=== PATIENT | male | born 1950 | race Caucasian/White ===

== ENCOUNTER 2021-08-15 13:26 | Outpatient (CLI) | payer OTHER, SELFPAY ==
--- NOTE | 2021-08-15 13:48 | ECHO_ITS ---
Patient Info Name: Car Quigley Age: 70 years : 1950 Gender: Male Ht: 73 in Wt: 326 lbs BSA: 2.83 m2 HR: 78 bpm BP: 146 / 104 mmHg Heart Rhythm: Atrial Fibrillation Technical Quality: Fair Exam Date: 08/15/2021 2:14 PM Exam Location: [facility] Patient Status: Outpatient Admit Date: 08/15/2021 Staff Ordering Physician: Neil Briceno DO Harp Repairer: [place] Grady RDCS Attending Provider: Neil Briceno DO Referring Physician: Janak KING; Exam Type: CA echo dop color flow w con Study Info Indications - afib Complete two-dimensional, color flow and Doppler transthoracic echocardiogram is performed. Summary 1. Complete two-dimensional, color flow and Doppler transthoracic echocardiogram is performed. 2. Left ventricular chamber dimension is mildly enlarged. 3. Definity contrast administered improved wall motion interpretation. 4. Ventricular septum is sigmoid shaped. No LVOT obstruction. 5. Left ventricular systolic function is normal, estimated at 55-60%. 6. There is mildly increased left ventricular wall thickness. 7. The left ventricular diastolic function is normal. 8. E/e' 9 is minimally elevated. 9. Atrial fibrillation. 10. Left atrial chamber dimension is severely enlarged. 11. Right atrial chamber dimension is moderately enlarged. 12. There is mild mitral valve regurgitation. 13. There is mild tricuspid valve regurgitation. 14. No pulmonary hypertension, estimated pulmonary arterial systolic pressure is 30 mmHg. Left Ventricle Ventricular septum is sigmoid shaped. No LVOT obstruction. E/e' 9 is minimally elevated. Definity contrast administered improved wall motion interpretation. Atrial fibrillation. Left ventricular chamber dimension is mildly enlarged. Left ventricular systolic function is normal, estimated at 55-60%. There is mildly increased left ventricular wall thickness. The left ventricular diastolic function is normal. Right Ventricle Right ventricular chamber dimension is not well visualized. Left Atria Left atrial chamber dimension is severely enlarged. Right Atria Right atrial chamber dimension is moderately enlarged. Aortic Valve The aortic valve is trileaflet. There is no aortic valve stenosis. There is no aortic valve regurgitation. Pulmonic Valve There is no pulmonic regurgitation. Mitral Valve There is no mitral valve stenosis. There is mild mitral valve regurgitation. Tricuspid Valve There is mild tricuspid valve regurgitation. No pulmonary hypertension, estimated pulmonary arterial systolic pressure is 30 mmHg. Pericardium/Pleural There is no pericardial effusion. Inferior Vena Cava Normal inferior vena cava with >50% collapse upon inspiration consistent with normal right atrial pressure, 5 mmHg. Aorta The aortic root size at the sinus of Valsalva is normal. Left Ventricular Outflow Tract Name Value Normal LVOT 2D LVOT Diameter 2.14 cm LVOT Doppler LVOT Peak Gradient 3 mmHg LVOT Mean Gradient 2 mmHg LVOT VTI 14.86 cm
[2021-08-15] MEDS: PERFLUTREN LIPID MICROSPHERES 1.5 ML VIAL DILUTED TO 10 ML TOTAL VOLUME IV PUSH (14:35)
== END 2021-08-15 13:27 | disposition home or self-care (01) ==
PROVIDERS: PCP Emergency Medicine; Visit Provider Internal Medicine Cardiovascular Disease
DX: I48.0 Paroxysmal atrial fibrillation (principal); I51.7 Cardiomegaly
CPT/HCPCS: C8929; Q9957

== ENCOUNTER 2022-03-14 12:34 | Inpatient (IN) | payer OTHER, SELFPAY ==
[2022-03-14] VITALS (9 sets, daily range): BP systolic 97–115; BP diastolic 59–94; PULSE 69–102; RESP 12–20; TEMP 36.5–36.8; O2SAT 95–100; BMI 45.1
--- NOTE | ~2022-03-14 | XR_ITS ---
EXAMINATION: XR surgery orthopedic DATE: 03/17/2022 13:31 INDICATION: Intertrochanteric nailing of a proximal left femoral fracture. TECHNIQUE: 4 fluoroscopic images of the left hip were obtained during procedure performed by Dr. Karis salinas. Radiologist was not present for the imaging or procedure. The amount of fluoroscopy time used du ring this procedure was explained 0 minutes. COMPARISON: 03/14/2022 FINDINGS: Internal fixation of an intratrochanteric fracture of the proximal left femur with antegrade intramed ullary mohamud, distal interlocking screw as well as a femoral neck dynamic compression screw. In additio n there is interlocking pin extending across intramedullary mohamud and into the more cephalad left femor al head and neck. There are some residual lateral displacement of the fracture which appears decrease d since the prior study. There is widening of the cephalad aspect of the hip joint space which may be related to traction upon the left lower limb. IMPRESSION: 1. Fluoroscopy utilized during internal fixation of an intratrochanteric fracture of the proximal lef t femur. See procedure note for further detail. Reviewed, dictated and finalized at location A. IMPRESSION: 1. Fluoroscopy utilized during internal fixation of an intratrochanteric fractu re of the proximal left femur. See procedure note for further detail.
--- NOTE | ~2022-03-14 | XR_ITS ---
EXAM: XR foot RT 2V DATE: 03/15/2022 15:47 HISTORY: pain after a fall . COMPARISON: None available. FINDINGS: Decreased mineralization. Lateral angulated fractures of the distal second through fourth metatarsals and the proximal aspect of the fifth proximal phalange. No lytic or blastic lesion. Joint spaces are maintained. No erosion or periosteal change. Soft tissues within normal limits. IMPRESSION: Angulated fractures of the right second through fourth distal metatarsals and proximal as pect of the right proximal phalange. Reviewed, dictated and finalized at location K. IMPRESSION: Angulated fractures of the right second through fourth distal metat arsals and proximal aspect of the right proximal phalange.
--- NOTE | ~2022-03-14 | XR_ITS ---
XR chest 1V 03/14/2022 13:40 Indication: Near syncope Procedure: AP view of the chest Comparison: 07/13/2008 Findings: Cardiomegaly. Healed left fifth rib fracture. No focal air space disease, pulmonary edema, pleural effusion or suspected pneumothorax. Impression: 1: No acute cardiopulmonary disease. Reviewed, dictated and finalized at location B. Impression: 1: No acute cardiopulmonary disease.
--- NOTE | ~2022-03-14 | US_ITS ---
EXAMINATION: US renal BI DATE: 03/15/2022 09:55 INDICATION: Acute on chronic renal failure. TECHNIQUE: Multiple ultrasound grayscale images of the kidneys were obtained. COMPARISON: None. FINDINGS: Sensitivity is decreased by obesity. The right kidney measures 10.0 x 4.3 x 6.0 cm. The left kidney m easures 11.5 x 4.0 x 5.1 cm. The kidneys demonstrate normal parenchymal echogenicity. There is no hyd ronephrosis. The bladder is normal. IMPRESSION: 1. Normal kidney sizes. No hydronephrosis. Reviewed, dictated and finalized at location A.
--- NOTE | ~2022-03-14 | XR_ITS ---
EXAM: XR ankle LT 2V DATE: 03/18/2022 14:08 HISTORY: pain after a fall . COMPARISON: None available. FINDINGS: Normal mineralization. Linear cortical lucency in the lateral cortex of the distal left fi bula, without a clear continuation of a fracture line. Otherwise no fracture or dislocation detected. No lytic or blastic lesion. Plantar and Achilles enthesopathy prominent os trigonum. Degenerative ch vinay of the tibiotalar and midfoot joints. No erosion or periosteal change. Soft tissues within dakota l limits. IMPRESSION: Apparent cortical break along the lateral aspect of the distal left fibula, may represent artifact, old injury, or an acute fracture fracture if there is corresponding pain/point tenderness. Reviewed, dictated and finalized at location K. IMPRESSION: Apparent cortical break along the lateral aspect of the distal left fibula, may represent artifact, old injury, or an acute fracture fracture if t here is corresponding pain/point tenderness.
--- NOTE | ~2022-03-14 | XR_ITS ---
XR hip LT 2V w AP pelvis 03/14/2022 13:40 Indication: Near syncope. Left hip pain after fall. Procedure: 3 views left hip including AP pelvis Comparison: 09/01/2016 Findings: There is a displaced left femoral intertrochanteric fracture. Osteopenia. No other fracture identified. Pelvic rings intact. Impression: 1: Displaced left femoral intertrochanteric fracture. Reviewed, dictated and finalized at location B. Impression: 1: Displaced left femoral intertrochanteric fracture.
--- NOTE | ~2022-03-14 | US_ITS ---
EXAMINATION: US carotid duplex BI DATE: 03/15/2022 09:55 INDICATION: Syncope. TECHNIQUE: Grayscale, color Doppler, and pulsed Doppler images of the cervical carotid arteries were obtained. The degree of vessel stenosis is placed in one of the following categories: normal, <50%, 5 0-69%, >=70% but less than near-occlusion, near-occlusion, or total occlusion. Note that percent sten osis relative to normal distal artery lumen diameter is indirectly measured from velocity measurement s as described by Tao, et al. Radiology 2003; 229:340-346. COMPARISON: None. FINDINGS: RIGHT: The right common carotid artery (CCA) peak systolic velocity (PSV) is 54 cm/s. The right internal car otid artery (ICA) PSV is 50 cm/s. The right ICA end-diastolic velocity (EDV) is 19 cm/s. The right IC A/CCA PSV ratio is 0.9. Grayscale and color Doppler images yield an estimate of <50% diameter reducti on from plaque in the ICA. There is antegrade flow in the right vertebral artery. LEFT: The left CCA PSV is 61 cm/s. The left ICA PSV is 69 cm/s. The left ICA EDV is 21 cm/s. The left ICA/C CA PSV ratio is 1.1. Grayscale and color Doppler images yield an estimate of <50% diameter reduction from plaque in the ICA. There is antegrade flow in the left vertebral artery. IMPRESSION: 1. <50% stenosis in the right internal carotid artery. 2. <50% stenosis in the left internal carotid artery. Reviewed, dictated and finalized at location A.
--- NOTE | 2022-03-14 12:43 | ECG_ITS ---
Measurements Intervals [place] Rate: 89 P: OK: 0 QRS: 91 QRSD: 118 T: 47 QT: 393 QTc: 478 Interpretive Statements ATRIAL FIBRILLATION BORDERLINE RIGHT AXIS DEVIATION ABNORMAL RHYTHM ECG NO PREVIOUS ECG AVAILABLE FOR COMPARISON Electronically Signed On 03-15-2022 13:20:35 CDT by Cheyenne Patel M.D.
--- NOTE | 2022-03-14 12:43 | ED.GENADULT ---
HPI - General Adult General Chief complaint: Syncope Stated complaint: syncope, L hip injury Time Seen by Provider: 03/14/22 12:35 History of Present Illness HPI narrative: 71-year-old male presenting to the emergency department for evaluation after having a syncopal episode resulting in a ground-level fall and left hip pain. Patient states he has had near syncopal episodes previously and this is his second in 6 months. Patient states he was walking in the kitchen when he felt dizzy lightheaded and ultimately fell to the ground. Patient states he did not have loss of consciousness. Patient states he does have increased left hip pain with range of motion. Patient arrived to the emergency department by EMS. Patient denies any chest pain or shortness of breath. Patient denies any recent fevers coughs or chills. Patient denies any abdominal pain. Patient denies any other pain or injury other than his left hip. Patient does have history of A. fib and hypertension. Patient does take Coumadin. Patient has also recently had medications for vertigo-patient told that vertigo was a component of the fall today. Related Data Home Medications Medication Instructions Recorded Confirmed carvedilol 6.25 mg tablet 6.25 mg PO BID 03/14/22 03/14/22 meclizine 25 mg tablet 25 mg PO DAILY 03/14/22 03/14/22 testosterone 20.25 mg/1.25 gram 2 pump topical DAILY 03/14/22 03/14/22 (1.62 %) transdermal gel pump (AndroGel) Allergies Allergy/AdvReac Type Severity Reaction Status Date / Time No Known Allergies Allergy Mild Verified 03/14/22 17:59 Review of Systems Review of Systems: CONSTITUTIONAL: Denies fever, chills, or sweats. EYES: Denies visual changes, redness, or discharge. ENT: Denies rhinorrhea, congestion, sore throat, or otalgia. CARDIOVASCULAR: Denies chest pain, palpitations, or edema. RESPIRATORY: Denies cough or dyspnea. GASTROINTESTINAL: Denies abdominal pain, nausea, vomiting, or diarrhea. GENITOURINARY: Denies dysuria or hematuria. SKIN: Denies rash or itching. MUSCULOSKELETAL: See HPI NEUROLOGIC: Denies headache, numbness, or weakness. [facility] Past Medical History Medical History (Updated 03/14/22 @ 14:03 by Grayson Dorsey MD) Afib CHF (congestive heart failure) HLD (hyperlipidemia) Family History Family History Mother Family history of cardiovascular disease Father Family history of heart disease in male family member before age 55, Onset Age: 43 Family history of cardiovascular disease Social History Social History Smoking packs per day: 1 Smoking cigarettes per day: 20.0 Years smoked: 10 Smoking pack-years: 10.00 Smoking status: Former smoker Second hand tobacco smoke exposure: Yes Alcohol intake: former Substance use: current Substance use type: marijuana Spiritual care concerns: No Exam Narrative: APPEARANCE: Well appearing, no pain, no distress, well-nourished. HEAD: normocephalic, atraumatic. EYES: PERRLA/EOMI, conjunctivae clear. NOSE: Normal no drainage NECK: Supple. No adenopathy, no masses. RESPIRATORY: Airway patent, respirations nonlabored. Clear to auscultation bilaterally, no rales, rhonchi, wheezing. CARDIOVASCULAR: Regular rate and rhythm without murmurs rubs or gallops. ABDOMINAL: Soft, nontender, nondistended, normal bowel sounds MUSCULOSKELETAL: Decreased range of motion of the left hip due to pain. NEURO: Alert. Cranial nerves II through XII intact. Grossly intact SKIN: Abrasion to left knee PSYCHIATRIC: Normal affect/mood. Course Course Emergency Course: Patient does have a mild MAMIE and he was given 1 L normal saline over 2 hours. Patient also has kalemia this was replaced orally. Patient does have a left intertrochanteric hip fracture and orthopedics, Dr. Jung, was consulted. Case was discussed with hospitalist and patient was accepted for
[2022-03-14 13:10] LABS: Basophils Absolute Auto 0.1 K/mm3 (0.0-0.1); Basophils Percent Auto 0.5 % (0.2-1.2); Eosinophils Absolute Auto 0.3 K/mm3 (0-0.3); Hematocrit 46.4 % (42.0-52.0); Hemoglobin 15.5 g/dL (14.0-18.0); Immature Granulocyte Absolute 0.05 K/mm3 (0.00-0.031); Immature Granulocyte Percent A 0.5 % (0-0.5); Lymphocytes Percent Auto 31.7 % (18.3-44.2); Mean Corpuscular HGB Conc 33.4 g/dl (32-36); Mean Corpuscular Hemoglobin 32.2 pg (26-34); Mean Corpuscular Volume 96.5 fl (80-100); Mean Platelet Volume 10.3 fl (7.4-10.4); Monocytes Absolute Auto 0.8 K/mm3 (0.1-0.6); Neutrophils Absolute Auto 5.3 K/mm3 (1.3-6.7); Neutrophils Percent Auto 56.3 % (45.5-73.1); Platelet Count Result 247 k/mm3 (150-375); Red Blood Count 4.81 M/mm3 (4.6-6.20); Red Cell Distribution Width 14.2 % (11.5-14.5); White Blood Count 9.5 K/mm3 (4.5-10.0)
[2022-03-14 13:17] LABS: INR 2.3; Prothrombin Time 24.1 Seconds (11.1-14.7)
[2022-03-14 13:18] LABS: Lactic Acid Reflex 1.7 mmol/L (0.7-2.0)
[2022-03-14 13:19] LABS: Alanine Aminotransferase 13 U/L (6-50); Albumin Level 3.8 g/dL (3.5-5.1); Alkaline Phosphatase 87 U/L (38-126); Anion Gap 11 mmol/L (8-16); Aspartate Amino Transferase 22 U/L (17-59); Bilirubin,Total 0.7 mg/dL (0.2-1.3); Blood Urea Nitrogen 51 mg/dL (9-20); Calcium 9.1 mg/dL (8.4-10.2); Carbon Dioxide 27 mmol/L (22-30); Chloride 95 mmol/L (98-107); Estimated CRCL calculation 44 ml/min; Estimated Glomerular Filt Rate 30; Glucose 155 mg/dL (65-110); Potassium 3.3 mmol/L (3.4-5.0); Sodium 133 mmol/L (137-145)
[2022-03-14 13:26] LABS: Appearance Urine Clear (Clear); Bilirubin Urine Negative (Negative); Blood Urine Negative (Negative); Color Urine Yellow (Yellow); Glucose Urine UA Negative (Negative); Ketones Urine Negative (Negative); Leukocyte Esterase Ur 1+ LEU/UL (Negative); Nitrate Urine Negative (Negative); Protein Urine Negative (Negative); Specific Grav Ur 1.015 (1.001-1.035); Urobilinogen Urine 0.2 mg/dL (<2.0)
[2022-03-14 13:40] LABS: Mucus Urine Rare /lpf; RBC Urine 0-2 /hpf (0-2)
[2022-03-14 13:41] LABS: Add Urine Microscopic? YES
--- NOTE | 2022-03-14 15:05 | PM.IMHP ---
H&P: HPI History of Present Illness Date/Time: 03/14/22 15:05 Chief Complaint: Left hip pain after brief loss of consciousness. Narrative: This is a pleasant 71-year-old male with atrial fibrillation on warfarin, hypertension, and benign prostatic hyperplasia who presented to the emergency department via EMS from home for evaluation of left hip pain after a brief loss of consciousness. He reports ongoing issues with lightheadedness over the last 6 months or so. The symptoms tend to occur most frequently while walking, shortly after standing from a seated position, and these feelings pass within minutes. He discuss this with his doctor and he was given a prescription for meclizine without benefit. Not long prior to arrival he had a similar episode while walking to the kitchen and he believes she briefly lost consciousness before coming to at the time he ?crumpled to the floor.? He landed on his left side and he had immediate pain in that left hip. He was able to crawl crawl to his phone and call for help. He sustained no other injuries in the fall and denies head trauma. He had a similar episode about 6 months ago and some near syncopal episodes since that time. Blood pressure on arrival to the emergency department was 97/78 and he has had several readings at the lower end of normal, improved with IV fluid rehydration. He reports eating and drinking as per usual though he has had some nausea. He was recently started on tamsulosin within the past month or so due to BPH symptoms but he has not had any other recent changes in medications. Imaging done on arrival to the ER today showed evidence of a left hip fracture and he is being admitted in this setting. Review of Systems Review of Systems: Twelve systems were reviewed. No fever chills. He does have occasional night sweats. No recent cold or flu symptoms. He denies auditory and visual changes. No chest pain, pleuritic pain, or shortness of breath. He had an echocardiogram done earlier this year which was reportedly unremarkable. He has had some nausea but no vomiting. No diarrhea. Except as documented, all other systems were reviewed and are negative. [facility] Past Medical History Medical History (Updated 03/14/22 @ 21:27 by Amy Portillo PA-C) Atrial fibrillation Benign prostatic hyperplasia Chronic anticoagulation Chronic kidney disease Gout Hyperlipidemia Hypothyroidism Surgical History Surgical History (Updated 03/14/22 @ 21:16 by Amy Portillo PA-C) History of tonsillectomy History of transurethral resection of prostate Family History Family History Mother Family history of cardiovascular disease Father Family history of heart disease in male family member before age 55, Onset Age: 43 Family history of cardiovascular disease Social History Social History (Updated 03/14/22 @ 21:17 by Amy Portillo PA-C) Social History: Surrogate medical decision maker: Manish Quigley, son. Code status: Full code. Smoking packs per day: 2 Smoking cigarettes per day: 40.0 Years smoked: 10 Smoking pack-years: 20.00 Smoking status: Former smoker Second hand tobacco smoke exposure: Yes Alcohol intake: former Substance use: current Substance use type: marijuana Additional living arrangements comments: Lives in his own home in [place]. 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 Spiritual care concerns: No Meds Home Medications and Allergies Home Medications Medication Instructions Recorded Confirmed Type tamsulosin 0.4 mg capsule 0.4 mg PO DAILY #90 caps 08/02/21 03/14/22 Rx cholecalciferol (vitamin D3) 1,250 See Rx Instructions .Route 08/05/21 03/14/22 Rx mcg (50,000 unit) capsule .COMPLEX #12 caps allopurinol 100 mg tablet 100 mg PO DAILY #180 tabs 08/09/21 03/14/22 Rx furosemide 40 mg tablet See Rx Instructions .Route 08/25/21 03/14/22 Rx .COMPLEX #180
[2022-03-14] MEDS: SODIUM CHLORIDE 0.9% IV 1,000 ML 500 ML IV CONT (15:13)
[2022-03-14] MEDS: SODIUM CHLORIDE 0.9% IV 1,000 ML 999 ML IV CONT (16:22)
--- NOTE | 2022-03-14 18:00 | ADMGEN ---
This patient, Car Quigley, was admitted to Medical Room 341-01. Patient/family oriented to hospital policies and general routines including ID bracelet, bed and alarms, visiting hours, pain management, procedures, bathroom and other care routines, personal items, smoking policy, room service/diet, and visiting hours. Information on how to activate the Rapid Response Team has been discussed. Patient/Family are encouraged to report perceived risks to care and to ask questions if they do not understand what they are told or what they should do.
[2022-03-14] MEDS: HYDROmorphone HCL INJ (*CRX) 1 MG/ML SYR 0.5 MG IV PUSH ×2 (18:46→23:54)
[2022-03-14 22:12] LABS: Anion Gap 9 mmol/L (8-16); Blood Urea Nitrogen 49 mg/dL (9-20); Calcium 8.6 mg/dL (8.4-10.2); Carbon Dioxide 28 mmol/L (22-30); Chloride 97 mmol/L (98-107); Estimated CRCL calculation 46 ml/min; Estimated Glomerular Filt Rate 31; Glucose 143 mg/dL (65-110); Potassium 3.8 mmol/L (3.4-5.0); Sodium 134 mmol/L (137-145)
[2022-03-14] MEDS: SODIUM CHLORIDE 0.9% IV 1,000 ML 100 ML IV CONT (22:13)
[2022-03-14] MEDS: HYDROcodone/acetaminophen (*CRX) 5-325 MG TABLET 1 TAB PO (22:13)
[2022-03-15] VITALS (12 sets, daily range): BP systolic 99–116; BP diastolic 61–71; PULSE 72–134; RESP 16–18; TEMP 36.1–36.7; O2SAT 95–96
[2022-03-15] MEDS: HYDROmorphone HCL INJ (*CRX) 1 MG/ML SYR IV PUSH ×5 (03:11→22:56)
[2022-03-15 06:03] LABS: Hematocrit 40.9 % (42.0-52.0); Hemoglobin 13.6 g/dL (14.0-18.0); Mean Corpuscular HGB Conc 33.3 g/dl (32-36); Mean Corpuscular Hemoglobin 31.9 pg (26-34); Mean Corpuscular Volume 95.8 fl (80-100); Mean Platelet Volume 10.7 fl (7.4-10.4); Platelet Count Result 244 k/mm3 (150-375); Red Blood Count 4.27 M/mm3 (4.6-6.20); Red Cell Distribution Width 14.2 % (11.5-14.5); White Blood Count 13.2 K/mm3 (4.5-10.0)
[2022-03-15 06:12] LABS: INR 2.5; Prothrombin Time 25.8 Seconds (11.1-14.7)
[2022-03-15 06:19] LABS: Alanine Aminotransferase 13 U/L (6-50); Albumin Level 3.5 g/dL (3.5-5.1); Alkaline Phosphatase 74 U/L (38-126); Anion Gap 10 mmol/L (8-16); Aspartate Amino Transferase 24 U/L (17-59); Bilirubin,Total 1.2 mg/dL (0.2-1.3); Blood Urea Nitrogen 46 mg/dL (9-20); Calcium 8.6 mg/dL (8.4-10.2); Carbon Dioxide 27 mmol/L (22-30); Chloride 97 mmol/L (98-107); Estimated CRCL calculation 46 ml/min; Estimated Glomerular Filt Rate 31; Glucose 168 mg/dL (65-110); Phosphorus 2.3 mg/dL (2.5-4.5); Potassium 3.8 mmol/L (3.4-5.0); Sodium 134 mmol/L (137-145)
--- NOTE | 2022-03-15 08:15 | PM.CNOR ---
Assessment and Plan Assessment and plan (1) Intertrochanteric fracture of left hip: Qualifiers: Encounter type: initial encounter Fracture type: closed Fracture alignment: displaced Qualified Code(s): S72.142A - Displaced intertrochanteric fracture of left femur, initial encounter for closed fracture Code(s): S72.142A - Displaced intertrochanteric fracture of left femur, initial encounter for closed fracture Status: Acute Assessment and Plan: 71-year-old morbidly obese gentleman with left hip intertrochanteric fracture. In atrial fibrillation currently. Anticoagulated with warfarin. INR 2.5 today. Also with acute on chronic kidney failure. Discussed nonoperative and operative treatment options with the patient. Risks and benefits of each as well as alternatives were reviewed. All of the patient's questions were answered. The risks of surgery reviewed including but not limited to: Neurovascular damage, wound complication, infection, blood clot, pulmonary embolus, stroke, myocardial infarction, and anesthetic risks up to and including . Continued pain and possible dysfunction were explained. Specific risks of the procedure including later recurrence of deformity. No guarantees were offered. If hardware used, discussed risk of failure/ breakage and possible need for removal. If complications occur, the patient understands the need for further treatment, possible further surgery. Patient verbalizes understanding and wishes to proceed. PLAN: Left hip trochanteric nail fixation. Discussed condition with patient. Cardiology consultation for atrial fibrillation and anticoagulation. Question need for further workup of renal status. Discussed with Anesthesiology. Surgery on hold until patient medically stable. We will proceed when cleared. (2) Acute on chronic kidney failure: Qualifiers: Acute renal failure type: unspecified Chronic kidney disease stage: unspecified stage Qualified Code(s): N17.9 - Acute kidney failure, unspecified; N18.9 - Chronic kidney disease, unspecified Code(s): N17.9 - Acute kidney failure, unspecified; N18.9 - Chronic kidney disease, unspecified Status: Acute (3) Atrial fibrillation: Qualifiers: Atrial fibrillation type: unspecified chronic Qualified Code(s): I48.20 - Chronic atrial fibrillation, unspecified Code(s): I48.91 - Unspecified atrial fibrillation Status: Acute (4) Chronic anticoagulation: Code(s): Z79.01 - group home (current) use of anticoagulants Status: Acute History of Present Illness HPI Consult date: 03/15/22 Requesting physician: Grayson Dorsey MD Chief complaint: Afib Near Syncope/Left Hip Fracture Narrative: 71-year-old gentleman with history of syncope yesterday at home. Fell on the left side. Left hip fracture. Admitted for further care. Also with history of atrial fibrillation currently on Coumadin. Complains of left hip pain. Denies neck or back pain. Denies numbness or tingling. Review of Systems Constitutional: Constitutional: Denies fever(s) Eyes: Eyes: Denies blurry vision ENT: Reports Normal hearing present Cardiovascular: Cardiovascular: Denies chest pain and Denies dyspnea Respiratory: Respiratory: Denies dyspnea and Denies wheezing Gastrointestinal: Gastrointestinal: Denies abdominal pain Genitourinary: Genitourinary: Denies urinary urgency Musculoskeletal: Musculoskeletal: Reports as per HPI and Denies numbness Integumentary/Breasts: Skin/Breast: Denies changing lesions and Denies sores Neurologic: Reports Normal hearing present, Denies behavioral changes, Denies confusion, Denies numbness and Denies convulsions Psychiatric: Psychiatric: Denies behavioral changes, Denies confusion and Denies hallucinations Endocrine: Endocrine: Denies heat intolerance Hematologic/Lymphatic: Hematologic/Lymphatic: Denies easy bleeding Allergic/Immunolo
[2022-03-15] MEDS: PHYTONADIONE 5 MG TABLET 10 MG PO (08:46)
[2022-03-15] MEDS: POTASSIUM/PHOSPHORUS/SODIUM 1.5 GM PACKET 1 PACKET PO (08:46)
[2022-03-15] MEDS: carvediloL 6.25 MG TABLET PO (08:46)
[2022-03-15] MEDS: TAMSULOSIN HCL 0.4 MG CAPSULE PO (08:46)
[2022-03-15] MEDS: allopurinoL 100 MG TABLET PO (08:51)
--- NOTE | 2022-03-15 09:23 | PM.CNCAR ---
Assessment and Plan Assessment and plan (1) Preop cardiovascular exam: Code(s): Z01.810 - Encounter for preprocedural cardiovascular examination Status: Acute Assessment and Plan: Risk profile: atrial fibrillation, hypertension, dyslipidemia, obesity. Functional status:<4 METs. Surgical risk: Moderate risk. Overall risk: Moderate risk. Discussed with patient that normally would undergo stress testing for CAD evaluation, but given acute hip fracture, he is willing to accept the surgical risk to fix his hip. Therefore, may proceed to noncardiac surgery which is hip surgery once INR is at acceptable level for surgery. (2) Syncope: Code(s): R55 - Syncope and collapse Status: Acute Assessment and Plan: Probably due to orthostatic syncope. Stopped diuretics. For edema of legs if it returns off diuretics is to wear compression stockings and keep legs elevated while seated. (3) Atrial fibrillation: Qualifiers: Atrial fibrillation type: unspecified chronic Qualified Code(s): I48.20 - Chronic atrial fibrillation, unspecified Code(s): I48.91 - Unspecified atrial fibrillation Status: Acute Assessment and Plan: [id number] 2. On warfarin and INR managed by PCP. Rate controlled. INR 2.5. He received Vit K 10 mg POx1. Monitor INR. (4) Hyperlipidemia: Code(s): E78.5 - Hyperlipidemia, unspecified Status: Acute Assessment and Plan: Stable. (5) Acute on chronic kidney failure: Qualifiers: Acute renal failure type: unspecified Chronic kidney disease stage: unspecified stage Qualified Code(s): N17.9 - Acute kidney failure, unspecified; N18.9 - Chronic kidney disease, unspecified Code(s): N17.9 - Acute kidney failure, unspecified; N18.9 - Chronic kidney disease, unspecified Status: Acute Assessment and Plan: Probably related to over-diuresis as edema resolved. Stopped diuretics and may hydrate to get kidney function back at baseline around Cr 1.3-1.4. (6) Hypertension: Code(s): I10 - Essential (primary) hypertension Status: Acute Assessment and Plan: Low normal. Change Coreg to Metoprolol for rate control without significantly lowering BP. History of Present Illness History of Present Illness Consult date/time: 03/15/22 09:23 Consult reason: pre-op evaluation Reason For Visit: Afib Near Syncope/Left Hip Fracture Narrative: 71 yr old man who is my regular cardiology patient who's PCP is Dr. Carson presented to ER with syncope and fractured hip. He has a history of atrial fibrillation, hypertension, morbid obesity, dyslipidemia. States that for last 6 months he noted dizziness upon standing and while walking. He passed out twice now, both times while walking into his bedroom. He felt dizziness prior to it then found himself on the floor. The second moody valadez was yesterday and noted pain in his left hip. He was brought to ER and found fractured left hip. He has MUNSON walking in from parking lot and that is chronic for him.? He drinks about 2 liters of Sprite a day. States he sleeps well but does have daytime sleepiness.? He does not want a sleep study. Denies chest pain, orthopnea, PND. Cardiovascular Procedures Electrophysiology:: 06/25/21 EKG: Atrial fibrillation at 103 bpm. Review of Systems Review of Systems: All systems reviewed & are unremarkable except as noted in HPI and below Constitutional: Constitutional: Reports as per HPI, Denies chills and Denies fever(s) Cardiovascular: Cardiovascular: Reports as per HPI, Denies chest pain, Denies irregular heart rhythm, Denies leg edema and Reports lightheadedness Respiratory: Respiratory: Reports as per HPI and Reports dyspnea on exertion Gastrointestinal: Gastrointestinal: Reports as per HPI and Denies abdominal pain Musculoskeletal: Musculoskeletal: Reports as per HPI and Reports arthralgias Neurologic: Reports as per HPI, Reports dizziness and Reports syncope
[2022-03-15 09:29] LABS: Hemoglobin A1C 5.6 % (<5.7)
[2022-03-15] MEDS: HYDROcodone/acetaminophen (*CRX) 5-325 MG TABLET 1 TAB PO (09:32)
[2022-03-15] MEDS: METOPROLOL TARTRATE 25 MG TABLET PO ×2 (14:30→21:07)
--- NOTE | 2022-03-15 15:15 | PM.IMPN ---
Progress Note: A&P Assessment and Plan (1) Syncope: Code(s): R55 - Syncope and collapse Status: Acute Assessment and Plan: This is his 2nd syncopal episode and the last 6 months (although tells me that this was more pre-syncope). By history it sounds like he may have orthostatic hypotension as his lightheadedness seems to start shortly after standing from a seated position and passes after he has been up and ambulating for a minute or so. Orthostatic vital signs unable to be obtained at this time given hip pain with movement. He will be monitor on telemetry to rule out cardiac dysrhythmia. Echo was done in July 2021 and reviewed; no need to repeat. Carotid Dopplers showing <50% stenosis in the bilateral carotid arteries. Patient has refused brain CT due to claustrophobia. Consider related to diuretic therapy; Lasix stopped. Consider symptoms related to the Flomax. Follow closely once he ambulatory. (2) Intertrochanteric fracture of left hip: Qualifiers: Encounter type: initial encounter Fracture type: closed Fracture alignment: displaced Qualified Code(s): S72.142A - Displaced intertrochanteric fracture of left femur, initial encounter for closed fracture Code(s): S72.142A - Displaced intertrochanteric fracture of left femur, initial encounter for closed fracture Status: Acute Assessment and Plan: Sustained in fall following (near)syncopal episode. Warfarin held in anticipation of upcoming surgery. Vit K given. Analgesics available as needed. Daily INR. (3) Acute on chronic kidney failure: Qualifiers: Acute renal failure type: unspecified Chronic kidney disease stage: unspecified stage Qualified Code(s): N17.9 - Acute kidney failure, unspecified; N18.9 - Chronic kidney disease, unspecified Code(s): N17.9 - Acute kidney failure, unspecified; N18.9 - Chronic kidney disease, unspecified Status: Acute Assessment and Plan: BUN and creatinine are higher than baseline arguing that he may be dry; he appears dry on exam and blood pressures have been running soft. He was given IV fluids but renal function only minimal better. Renal US no acute findings. Repeat IV fluids (4) Atrial fibrillation: Qualifiers: Atrial fibrillation type: unspecified chronic Qualified Code(s): I48.20 - Chronic atrial fibrillation, unspecified Code(s): I48.91 - Unspecified atrial fibrillation Status: Acute Assessment and Plan: He is chronically in AFib, per patient report. Rate poorly controlled on carvedilol. Cardiology adjusting medications. (5) Chronic anticoagulation: Code(s): Z79.01 - senior living (current) use of anticoagulants Status: Acute Assessment and Plan: Warfarin on hold as detailed above. (6) Electrolyte abnormality: Code(s): E87.8 - Other disorders of electrolyte and fluid balance, not elsewhere classified Status: Acute Assessment and Plan: Including mild hyponatremia and hypokalemia. Potassium was replaced and normal now. Sodium stable at 134. Follow (7) Benign prostatic hyperplasia: Code(s): N40.0 - Benign prostatic hyperplasia without lower urinary tract symptoms Status: Acute Assessment and Plan: As above. Continue Flomax. Continue fall precautions. Plan DVT prophylaxis: INR therapeutic Code status: Full Diet: Heart healthy Subjective Date/time seen: 03/15/22 15:15 Interval history: 71yo male with cAFib, CKD and BPH here for presyncopal episode resulting in a left femur fracture. Patient states that he has been having dizziness/lightheaded x 6 months. He had another episode of lightheadedness that caused him to 'crumple' to the floor. He states he remembers falling to the floor and denies that he passed out. He denies head injury. He complains of hip pain but controlled at this time; Complains of right foot/toe pain but no other joints hurt.
[2022-03-15] MEDS: SODIUM CHLORIDE 0.9% IV 1,000 ML 100 ML IV CONT (16:09)
--- NOTE | 2022-03-15 21:37 | PC.NURSE ---
spoke to Debra ext [id number] clarified TXA to be given pre-op.
[2022-03-16] VITALS (18 sets, daily range): BP systolic 90–105; BP diastolic 58–70; PULSE 83–113; RESP 14–18; TEMP 36.3–37; O2SAT 95–97
[2022-03-16] MEDS: HYDROmorphone HCL INJ (*CRX) 1 MG/ML SYR IV PUSH (04:58)
[2022-03-16] MEDS: METOPROLOL TARTRATE 25 MG TABLET PO ×3 (04:58→23:41)
[2022-03-16 06:25] LABS: Basophils Absolute Auto 0.1 K/mm3 (0.0-0.1); Basophils Percent Auto 0.5 % (0.2-1.2); Eosinophils Absolute Auto 0.4 K/mm3 (0-0.3); Eosinophils Percent Auto 2.6 % (0-4.4); Hematocrit 36.2 % (42.0-52.0); Hemoglobin 11.9 g/dL (14.0-18.0); Immature Granulocyte Percent A 0.7 % (0-0.5); Lymphocytes Absolute Auto 1.85 K/mm3 (0.9-3.2); Lymphocytes Percent Auto 12.9 % (18.3-44.2); Mean Corpuscular HGB Conc 32.9 g/dl (32-36); Mean Corpuscular Hemoglobin 32.4 pg (26-34); Mean Corpuscular Volume 98.6 fl (80-100); Mean Platelet Volume 10.7 fl (7.4-10.4); Monocytes Absolute Auto 1.4 K/mm3 (0.1-0.6); Monocytes Percent Auto 9.4 % (2.6-8.5); Neutrophils Absolute Auto 10.6 K/mm3 (1.3-6.7); Neutrophils Percent Auto 73.9 % (45.5-73.1); Platelet Count Result 206 k/mm3 (150-375); Red Blood Count 3.67 M/mm3 (4.6-6.20); Red Cell Distribution Width 14.4 % (11.5-14.5); White Blood Count 14.4 K/mm3 (4.5-10.0)
[2022-03-16 06:36] LABS: Prothrombin Time 21.8 Seconds (11.1-14.7)
[2022-03-16 06:39] LABS: Albumin Level 3.3 g/dL (3.5-5.1); Anion Gap 7 mmol/L (8-16); Blood Urea Nitrogen 44 mg/dL (9-20); Calcium 8.1 mg/dL (8.4-10.2); Carbon Dioxide 29 mmol/L (22-30); Chloride 98 mmol/L (98-107); Estimated CRCL calculation 49 ml/min; Estimated Glomerular Filt Rate 33; Glucose 130 mg/dL (65-110); Magnesium 1.9 mg/dL (1.6-2.3); Phosphorus 2.8 mg/dL (2.5-4.5); Potassium 3.9 mmol/L (3.4-5.0); Sodium 134 mmol/L (137-145)
[2022-03-16] MEDS: PHYTONADIONE 5 MG TABLET PO (07:52)
--- NOTE | 2022-03-16 08:18 | PM.PNCARD ---
Progress Note: A&P Assessment and Plan (1) Preop cardiovascular exam: Code(s): Z01.810 - Encounter for preprocedural cardiovascular examination Status: Acute Assessment and Plan: Risk profile: atrial fibrillation, hypertension, dyslipidemia, obesity. Functional status:<4 METs. Surgical risk: Moderate risk. Overall risk: Moderate risk. Discussed with patient that normally would undergo stress testing for CAD evaluation, but given acute hip fracture, he is willing to accept the surgical risk to fix his hip. Therefore, may proceed to noncardiac surgery which is hip surgery once INR is at acceptable level for surgery. (2) Syncope: Code(s): R55 - Syncope and collapse Status: Acute Assessment and Plan: Probably due to orthostatic syncope. Stopped diuretics. For edema of legs if it returns off diuretics is to wear compression stockings and keep legs elevated while seated. (3) Atrial fibrillation: Qualifiers: Atrial fibrillation type: unspecified chronic Qualified Code(s): I48.20 - Chronic atrial fibrillation, unspecified Code(s): I48.91 - Unspecified atrial fibrillation Status: Acute Assessment and Plan: [id number] 2. On warfarin and INR managed by PCP. Rate controlled. INR 2.0. He received Vit K 10 mg POx1. Monitor INR. (4) Hyperlipidemia: Code(s): E78.5 - Hyperlipidemia, unspecified Status: Acute Assessment and Plan: Stable. (5) Acute on chronic kidney failure: Qualifiers: Acute renal failure type: unspecified Chronic kidney disease stage: unspecified stage Qualified Code(s): N17.9 - Acute kidney failure, unspecified; N18.9 - Chronic kidney disease, unspecified Code(s): N17.9 - Acute kidney failure, unspecified; N18.9 - Chronic kidney disease, unspecified Status: Acute Assessment and Plan: Probably related to over-diuresis as edema resolved. Stopped diuretics and may hydrate to get kidney function back at baseline around Cr 1.3-1.4. (6) Hypertension: Code(s): I10 - Essential (primary) hypertension Status: Acute Assessment and Plan: Low normal. Changed Coreg to Metoprolol for rate control without significantly lowering BP. Subjective Date/time seen: 03/16/22 08:18 Denies chest pain or sob. Has 4/10 left hip pain. Exam Const: General: cooperative, healthy appearing and comfortable Resp: Auscultation: clear to auscultation bilaterally, no crackles, no rales, no rhonchi and no wheezes Cardio: Jugular venous distension: no JVD Rate: tachycardic Rhythm: abnormal rhythm Heart sounds: no murmurs Peripheral pulses: dorsalis pedis present GI: GI Palp: No abdominal tenderness and Yes Soft to palpation Neuro: General: oriented to person, oriented to place and oriented to time Extrem: Right lower extremity: no edema Left lower extremity: no edema Objective Data Vital Signs Vital Signs: Vital Signs - 24 hr 03/15/22 08:46 03/15/22 12:00 03/15/22 14:30 Temperature Pulse Rate 120 H 134 H 118 H Respiratory Rate Blood Pressure Pulse Oximetry Oxygen Delivery 03/15/22 13:50 03/15/22 16:00 03/15/22 20:00 Temperature 98.0 F Pulse Rate 99 93 96 Respiratory Rate 16 Blood Pressure 101/61 Pulse Oximetry 96 Oxygen Delivery 03/15/22 21:05 03/15/22 21:07 03/16/22 00:00 Temperature 97 F L Pulse Rate 93 90 83 Respiratory Rate 18 Blood Pressure 99/65 L Pulse Oximetry 95 Oxygen Delivery 03/16/22 04:00 03/16/22 04:55 03/16/22 04:58 Temperature 97.7 F Pulse Rate 112 H 96 104 H Respiratory Rate 18 Blood Pressure 103/67 Pulse Oximetry 96 Oxygen Delivery 03/16/22 07:47 Temperature Pulse Rate Respiratory Rate Blood Pressure Pulse Oximetry 96 Oxygen Delivery Room Air Intake/Output Intake/Output: Intake & Output 03/13/22 03/14/22 03/15/22 03/16/22 23:59 23:59 23:59 23:59 Intake Total 7243 329 7765 Output Total
--- NOTE | 2022-03-16 09:21 | PM.PNORT ---
Progress Note: A&P Assessment and Plan (1) Intertrochanteric fracture of left hip: Qualifiers: Encounter type: initial encounter Fracture type: closed Fracture alignment: displaced Qualified Code(s): S72.142A - Displaced intertrochanteric fracture of left femur, initial encounter for closed fracture Code(s): S72.142A - Displaced intertrochanteric fracture of left femur, initial encounter for closed fracture Status: Acute Assessment and Plan: Left hip intertrochanteric fracture. INR 2.0 today. Plan for FFP and re-evaluate. Discussed with patient. Surgery on hold until patient medically stable. We will proceed when cleared. (2) Acute on chronic kidney failure: Qualifiers: Acute renal failure type: unspecified Chronic kidney disease stage: unspecified stage Qualified Code(s): N17.9 - Acute kidney failure, unspecified; N18.9 - Chronic kidney disease, unspecified Code(s): N17.9 - Acute kidney failure, unspecified; N18.9 - Chronic kidney disease, unspecified Status: Acute (3) Atrial fibrillation: Qualifiers: Atrial fibrillation type: unspecified chronic Qualified Code(s): I48.20 - Chronic atrial fibrillation, unspecified Code(s): I48.91 - Unspecified atrial fibrillation Status: Acute (4) Chronic anticoagulation: Code(s): Z79.01 - snf (current) use of anticoagulants Status: Acute Subjective Subjective Date/Time Seen: 03/16/22 09:21 Principal diagnosis: Left hip intertrochanteric fracture. Interval history: Patient awaiting medical clearance for surgery. INR 2.0 today. Plan for FFP and re-evaluate. Exam Const: General: No confusion Nutritional Appearance: obese morbidly obese Orientation/consciousness: No confusion HENMT: Head: normal to inspection, normocephalic and atraumatic Eyes: Conjunctivae: conjunctivae normal Sclera: sclerae normal Neck: Neck: supple and nontender Chest: Chest palpation & inspection: normal inspection of the chest Resp: Effort & Inspection: normal respiratory effort and no audible wheezes Cardio: Rate: regular rate Rhythm: regular rhythm : General: Yes deferred Skin: General skin exam: no rashes or lesions noted Neuro: General: No confusion Cranial nerves: Yes Normal hearing present Extrem: General: capillary refill normal Right upper extremity: normal to inspection Left upper extremity: normal to inspection Right lower extremity: normal to inspection, hip/thigh Details: normal to inspection and normal ROM; no tenderness and no swelling, knee Details: no tenderness and no swelling, ankle Details: normal ROM (Able to flex and extend the ankle) and foot Details: vascular exam Details: dorsalis pedis pulse present and normal capillary refill, tendon exam (Moves all toes) and motor-sensory exam Details: light-touch normal Location: in all toes Left lower extremity: hip/thigh Details: tenderness Location: of the hip Location: laterally and anteriorly, swelling Location: of the hip and abnormal ROM Details: pain with passive ROM (Full motion deferred secondary to fracture) Details: with flexion, with internal rotation and with external rotation, ankle (no calf tenderness) Details: normal ROM (Able to flex/ extend ankle) and foot Details: toes with normal ROM (Moves all toes), vascular exam Details: dorsalis pedis pulse present and normal capillary refill and motor-sensory exam light-touch normal in all toes; no tenderness Psych: Affect: normal affect Objective Data Vital Signs Vital Signs: Vital Signs - 24 hr 03/15/22 12:00 03/15/22 14:30 03/15/22 13:50 Temperature 98.0 F Pulse Rate 134 H 118 H 99 Respiratory Rate 16 Blood Pressure 101/61 Pulse Oximetry 96 Oxygen Delivery 03/15/22 16:00 03/15/22 20:00 03/15/22 21:05 Temperature 97 F L Pulse Rate 93 96 93 Respiratory Rate 18 Blood Pressure 99/65 L Pulse Oximetry 95 Oxygen Delivery 02/25
--- NOTE | 2022-03-16 10:48 | PM.IMPN ---
Progress Note: A&P Assessment and Plan (1) Syncope: Code(s): R55 - Syncope and collapse Status: Acute Assessment and Plan: This is his 2nd syncopal episode and the last 6 months (although tells me that this was more pre-syncope). By history it sounds like he may have orthostatic hypotension as his lightheadedness seems to start shortly after standing from a seated position and passes after he has been up and ambulating for a minute or so. Orthostatic vital signs unable to be obtained at this time given hip pain with movement. He remains on telemetry and no cardiac dysrhythmia. Echo was done in July 2021 and reviewed; no need to repeat. Carotid Dopplers showing <50% stenosis in the bilateral carotid arteries. Patient has refused brain CT due to claustrophobia. Consider related to diuretic therapy; Lasix stopped. Consider symptoms related to the Flomax. Follow closely once he is ambulatory. (2) Intertrochanteric fracture of left hip: Qualifiers: Encounter type: initial encounter Fracture type: closed Fracture alignment: displaced Qualified Code(s): S72.142A - Displaced intertrochanteric fracture of left femur, initial encounter for closed fracture Code(s): S72.142A - Displaced intertrochanteric fracture of left femur, initial encounter for closed fracture Status: Acute Assessment and Plan: Sustained in fall following (near)syncopal episode. INR 2.3. Warfarin held in anticipation of upcoming surgery. INR up to 2.5 so Vit K given. Analgesics available as needed. NR better today. Spoke with surgery who felt best to proceed as soon as feasibly safe to do so thus FFP ordered for today and Vit K repeated. No plans for surgery today now. Will repeat INR later today and tomorrow. Should e ready to go tomorrow. Daily INR. (3) Foot fracture, right: Code(s): S92.901A - Unspecified fracture of right foot, initial encounter for closed fracture Status: Acute Assessment and Plan: Patient states his toes bent backward when he fell. X-ray showing angulated fx of the 2nd-4th distal metatarsals and proximal aspect of the riht proximal phalanges. Minimal pain to palpation (mostly around 4th toe). Pain better today. Defer to ortho. This ay impact his ability to ambulate afer surgery (4) Acute on chronic kidney failure: Qualifiers: Acute renal failure type: unspecified Chronic kidney disease stage: unspecified stage Qualified Code(s): N17.9 - Acute kidney failure, unspecified; N18.9 - Chronic kidney disease, unspecified Code(s): N17.9 - Acute kidney failure, unspecified; N18.9 - Chronic kidney disease, unspecified Status: Acute Assessment and Plan: BUN and creatinine are higher than baseline arguing that he may be dry; he appears dry on exam and blood pressures have been running soft. He was given IV fluids but renal function only minimal better. Renal US showing no acute findings. He received 1L NS with some mild improvement in the Cr. Will resume IV fluids after transfusion complete. (5) Atrial fibrillation: Qualifiers: Atrial fibrillation type: unspecified chronic Qualified Code(s): I48.20 - Chronic atrial fibrillation, unspecified Code(s): I48.91 - Unspecified atrial fibrillation Status: Acute Assessment and Plan: He is chronically in AFib, per patient report. [id number] =2. Rate poorly controlled on carvedilol. Cardiology adjusting medications. Coumadin on hold. Continue Lopressor. (6) Chronic anticoagulation: Code(s): Z79.01 - [facility] (current) use of anticoagulants Status: Acute Assessment and Plan: Warfarin on hold as detailed above. (7) Electrolyte abnormality: Code(s): E87.8 - Other disorders of electrolyte and fluid balance, not elsewhere classified Status: Acute Assessment and Plan: Including mild hyponatremia and hypokalemia. Potassium was replaced and no
[2022-03-16 12:08] LABS: INR 1.6; Prothrombin Time 18.4 Seconds (11.1-14.7)
[2022-03-16] MEDS: SODIUM CHLORIDE 0.9% IV 250 ML 30 ML IV CONT (12:28)
[2022-03-16] MEDS: TAMSULOSIN HCL 0.4 MG CAPSULE PO (12:28)
[2022-03-16] MEDS: allopurinoL 100 MG TABLET PO (12:28)
[2022-03-16] MEDS: HYDROcodone/acetaminophen (*CRX) 5-325 MG TABLET 1 TAB PO (17:41)
[2022-03-16] MEDS: ACETAMINOPHEN 325 MG TABLET 650 MG PO (20:30)
[2022-03-17] VITALS (22 sets, daily range): BP systolic 93–113; BP diastolic 56–83; PULSE 82–109; RESP 16–20; TEMP 36.1–36.7; O2SAT 92–100
[2022-03-17] MEDS: HYDROcodone/acetaminophen (*CRX) 5-325 MG TABLET 1 TAB PO (01:15)
[2022-03-17] MEDS: METOPROLOL TARTRATE 25 MG TABLET PO ×3 (06:19→20:50)
[2022-03-17 07:11] LABS: Hematocrit 31.9 % (42.0-52.0); Hemoglobin 10.2 g/dL (14.0-18.0); Mean Corpuscular Hemoglobin 32.4 pg (26-34); Mean Corpuscular Volume 101.3 fl (80-100); Mean Platelet Volume 10.5 fl (7.4-10.4); Platelet Count Result 179 k/mm3 (150-375); Red Blood Count 3.15 M/mm3 (4.6-6.20); Red Cell Distribution Width 14.3 % (11.5-14.5); White Blood Count 12.4 K/mm3 (4.5-10.0)
[2022-03-17 07:19] LABS: INR 1.4; Prothrombin Time 16.4 Seconds (11.1-14.7)
[2022-03-17 07:32] LABS: Anion Gap 5 mmol/L (8-16); Blood Urea Nitrogen 41 mg/dL (9-20); Calcium 8.1 mg/dL (8.4-10.2); Carbon Dioxide 30 mmol/L (22-30); Chloride 99 mmol/L (98-107); Estimated CRCL calculation 51 ml/min; Estimated Glomerular Filt Rate 35; Glucose 109 mg/dL (65-110); Potassium 3.9 mmol/L (3.4-5.0); Sodium 134 mmol/L (137-145)
--- NOTE | 2022-03-17 07:52 | PM.PNCARD ---
Progress Note: A&P Assessment and Plan (1) Preop cardiovascular exam: Code(s): Z01.810 - Encounter for preprocedural cardiovascular examination Status: Acute Assessment and Plan: Risk profile: atrial fibrillation, hypertension, dyslipidemia, obesity. Functional status:<4 METs. Surgical risk: Moderate risk. Overall risk: Moderate risk. Discussed with patient that normally would undergo stress testing for CAD evaluation, but given acute hip fracture, he is willing to accept the surgical risk to fix his hip. Therefore, may proceed to noncardiac surgery which is hip surgery once INR is at acceptable level for surgery. (2) Syncope: Code(s): R55 - Syncope and collapse Status: Acute Assessment and Plan: Probably due to orthostatic syncope. Stopped diuretics. For edema of legs if it returns off diuretics is to wear compression stockings and keep legs elevated while seated. (3) Atrial fibrillation: Qualifiers: Atrial fibrillation type: unspecified chronic Qualified Code(s): I48.20 - Chronic atrial fibrillation, unspecified Code(s): I48.91 - Unspecified atrial fibrillation Status: Acute Assessment and Plan: [id number] 2. On warfarin and INR managed by PCP. Rate controlled. INR 1.4. He received Vit K and FFP. Monitor INR. (4) Hyperlipidemia: Code(s): E78.5 - Hyperlipidemia, unspecified Status: Acute Assessment and Plan: Stable. (5) Acute on chronic kidney failure: Qualifiers: Acute renal failure type: unspecified Chronic kidney disease stage: unspecified stage Qualified Code(s): N17.9 - Acute kidney failure, unspecified; N18.9 - Chronic kidney disease, unspecified Code(s): N17.9 - Acute kidney failure, unspecified; N18.9 - Chronic kidney disease, unspecified Status: Acute Assessment and Plan: Probably related to over-diuresis as edema resolved. Stopped diuretics and may hydrate to get kidney function back at baseline around Cr 1.3-1.4. (6) Hypertension: Code(s): I10 - Essential (primary) hypertension Status: Acute Assessment and Plan: Low normal. Changed Coreg to Metoprolol for rate control without significantly lowering BP. Subjective Date/time seen: 03/17/22 07:52 Has hip pain. No chest pain or sob. Exam Const: General: cooperative, healthy appearing and comfortable Resp: Auscultation: clear to auscultation bilaterally, no crackles, no rales, no rhonchi and no wheezes Cardio: Jugular venous distension: no JVD Rate: regular rate Rhythm: abnormal rhythm Heart sounds: no murmurs Peripheral pulses: dorsalis pedis present GI: GI Palp: No abdominal tenderness and Yes Soft to palpation Neuro: General: oriented to person, oriented to place and oriented to time Extrem: Right lower extremity: no edema Left lower extremity: no edema Objective Data Vital Signs Vital Signs: Vital Signs - 24 hr 03/16/22 09:39 03/16/22 10:03 03/16/22 11:03 Temperature 98.4 F 98.0 F 98 F Pulse Rate 101 H 98 98 Respiratory Rate 14 14 14 Blood Pressure 90/59 L 98/62 L 98/62 L Pulse Oximetry 95 96 96 03/16/22 08:00 03/16/22 12:03 03/16/22 12:22 Temperature 98.6 F 98.1 F Pulse Rate 93 93 103 H Respiratory Rate 14 14 Blood Pressure 105/70 103/64 Pulse Oximetry 96 96 03/16/22 12:00 03/16/22 14:05 03/16/22 14:57 Temperature 97.4 F L Pulse Rate 104 H 93 102 H Respiratory Rate 14 Blood Pressure 98/58 L Pulse Oximetry 97 03/16/22 16:00 03/16/22 20:10 03/16/22 20:00 Temperature 98.5 F Pulse Rate 99 113 H 108 H Respiratory Rate 16 Blood Pressure 94/65 L Pulse Oximetry 97 03/16/22 23:41 03/17/22 00:00 03/17/22 04:00 Temperature Pulse Rate 111 H 107 H 91 Respiratory Rate Blood Pressure Pulse Oximetry 03/17/22 06:19 03/17/22 06:00 Temperature 97.9 F Pulse Rate 102 H 109 H Respiratory Rate 18 Blood Pressure 102/58 L Pulse Oximetry 97 Intake/
--- NOTE | 2022-03-17 08:13 | WPDANESEPPF ---
Anes - Initial Pre Proc Eval Procedure: Operation Date: 03/17/22 11:00 Proposed Procedures p Left Intertrochanteric Nail - Jimy Jung MD Date/Time: 03/17/22 08:13 Surgeon: Marylin Zepeda DO Pre Op Diagnosis: Afib Near Syncope/Left Hip Fracture Patient Data Age: 71 Gender: M Height: 1.83 m Weight: 154.8 kg Last Vital Signs Temp 36.6 C 03/17/22 06:00 Pulse 102 H 03/17/22 06:19 Resp 18 03/17/22 06:00 BP 102/58 L 03/17/22 06:00 Pulse Ox 97 03/17/22 06:00 O2 Del Method Room Air 03/16/22 07:47 Allergies Allergy/AdvReac Type Severity Reaction Status Date / Time No Known Allergies Allergy Mild Verified 03/14/22 17:59 Home Medications Medication Instructions Recorded Confirmed Type tamsulosin 0.4 mg capsule 0.4 mg PO DAILY #90 caps 08/02/21 03/14/22 Rx cholecalciferol (vitamin D3) 1,250 See Rx Instructions .Route 08/05/21 03/14/22 Rx mcg (50,000 unit) capsule .COMPLEX #12 caps allopurinol 100 mg tablet 100 mg PO DAILY #180 tabs 08/09/21 03/14/22 Rx furosemide 40 mg tablet See Rx Instructions .Route 08/25/21 03/14/22 Rx .COMPLEX #180 tabs lisinopril 5 mg tablet See Rx Instructions .Route 09/13/21 03/14/22 Rx .COMPLEX #90 tabs warfarin 3 mg tablet (Jantoven) See Rx Instructions .Route 10/02/21 03/14/22 Rx .COMPLEX #90 tabs tramadol 50 mg tablet 50 mg PO Q6H PRN pain #90 tabs 11/06/21 03/14/22 Rx hydrochlorothiazide 12.5 mg tablet 12.5 mg PO DAILY #90 tabs 02/07/22 03/14/22 Rx potassium chloride 20 mEq See Rx Instructions .Route 02/07/22 03/14/22 Rx tablet,extended .COMPLEX #90 tabs release(part/cryst) (Klor-Con M) carvedilol 6.25 mg tablet 6.25 mg PO BID 03/14/22 03/14/22 History meclizine 25 mg tablet 25 mg PO DAILY 03/14/22 03/14/22 History testosterone 20.25 mg/1.25 gram 2 pump topical DAILY 03/14/22 03/14/22 History (1.62 %) transdermal gel pump (AndroGel) Laboratory Tests 03/15/22 03/16/22 03/17/22 10:31 11:46 06:48 WBC 12.4 K/mm3 H K/mm3 (4.5-10.0) RBC 3.15 M/mm3 L M/mm3 (4.6-6.20) Hgb 10.2 g/dL L g/dL (14.0-18.0) Hct 31.9 % L % (42.0-52.0) MCV 101.3 fl H fl (80-100) MCH 32.4 pg pg (26-34) MCHC 32.0 g/dl g/dl (32-36) RDW 14.3 % % (11.5-14.5) Plt Count 179 k/mm3 k/mm3 (150-375) MPV 10.5 fl H fl (7.4-10.4) PT 18.4 Seconds H Seconds (11.1-14.7) INR 1.6 Sodium Potassium Chloride Carbon Dioxide Anion Gap BUN Creatinine Estim Creat Clear Calc Estimated GFR Glucose Calcium Blood Type A Positive Antibody Screen Negative 03/17/22 03/17/22 06:49 06:49 WBC RBC Hgb Hct MCV MCH MCHC RDW Plt Count MPV PT 16.4 Seconds H Seconds (11.1-14.7) INR 1.4 Sodium 134 mmol/L L mmol/L (137-145) Potassium 3.9 mmol/L mmol/L (3.4-5.0) Chloride 99 mmol/L mmol/L (98-107) Carbon Dioxide 30 mmol/L mmol/L (22-30) Anion Gap 5 mmol/L L mmol/L (8-16) BUN 41 mg/dL H mg/dL (9-20) Creatinine 1.90 mg/dL H mg/dL (0.7-1.3) Estim Creat Clear Calc 51 ml/min ml/min Estimated GFR 35 L (59 - ) Glucose 109 mg/dL mg/dL (65-110) Calcium 8.1 mg/dL L mg/dL (8.4-10.2) Blood Type Antibody Screen Patient hx anesthesia problems: none Family hx anesthesia problems: none Results Review: All pre-operative results and documents have been reviewed as part of the pre-operative evaluation. [facility] Past Medical History Medical History Atrial fibrillation Benign prostatic hyperplasia Chronic anticoagulati
--- NOTE | 2022-03-17 08:25 | PM.IMPN ---
Progress Note: A&P Assessment and Plan (1) Syncope: Code(s): R55 - Syncope and collapse Status: Acute Assessment and Plan: This is his 2nd syncopal episode and the last 6 months (although tells me that this was more near-syncope). By history it sounds like he may have orthostatic hypotension by hx. Orthostatic vital signs unable to be obtained due hip fracture. He remains on telemetry and no cardiac dysrhythmia. Echo July 2021 EF 55-60% with normal diastolic fxn; no need to repeat. Carotid Dopplers showing <50% stenosis in the bilateral carotid arteries. Patient has refused brain CT due to claustrophobia. Suspect (near) syncope related to dehydration from diuretic therapy; Lasix stopped. Also consider symptoms related to the Flomax. Follow closely once he is ambulatory. (2) Intertrochanteric fracture of left hip: Qualifiers: Encounter type: initial encounter Fracture type: closed Fracture alignment: displaced Qualified Code(s): S72.142A - Displaced intertrochanteric fracture of left femur, initial encounter for closed fracture Code(s): S72.142A - Displaced intertrochanteric fracture of left femur, initial encounter for closed fracture Status: Acute Assessment and Plan: Sustained in fall following (near)syncopal episode. X-ray showing displaced left femoral IT fracture. INR 2.3. Warfarin held in anticipation of upcoming surgery. Vit K given. Analgesics available as needed. INR better today after FFP and repeat Vit K. Continue daily INR. PT/OT post-operatively. May have trouble ambulating with right metatarsal fractures. (3) Foot fracture, right: Code(s): S92.901A - Unspecified fracture of right foot, initial encounter for closed fracture Status: Acute Assessment and Plan: Patient states his toes bent backward when he fell. X-ray showing angulated fx of the 2nd-4th distal metatarsals and proximal aspect of the right proximal phalanges. Minimal pain to palpation (mostly around 4th toe). Minimal pain today. Defer to ortho. This may impact his ability to ambulate after surgery (4) Acute on chronic kidney failure: Qualifiers: Acute renal failure type: unspecified Chronic kidney disease stage: unspecified stage Qualified Code(s): N17.9 - Acute kidney failure, unspecified; N18.9 - Chronic kidney disease, unspecified Code(s): N17.9 - Acute kidney failure, unspecified; N18.9 - Chronic kidney disease, unspecified Status: Acute Assessment and Plan: BUN and creatinine are higher than baseline arguing that he may be dry; he appears dry on exam and blood pressures have been running soft. He was given IV fluids but renal function only minimal better. Renal US showing no acute findings. He received 1L NS with some mild improvement in the Cr. Cr slowly improving. Will resume IV fluids. (5) Atrial fibrillation: Qualifiers: Atrial fibrillation type: unspecified chronic Qualified Code(s): I48.20 - Chronic atrial fibrillation, unspecified Code(s): I48.91 - Unspecified atrial fibrillation Status: Acute Assessment and Plan: He is chronically in AFib, per patient report. [id number] =2. Rate was poorly controlled on carvedilol. Cardiology adjusting medications. Coumadin on hold. Continue Lopressor. (6) Chronic anticoagulation: Code(s): Z79.01 - custodial (current) use of anticoagulants Status: Acute Assessment and Plan: Warfarin on hold as detailed above. Resume Coumadin when okay with surgery. (7) Electrolyte abnormality: Code(s): E87.8 - Other disorders of electrolyte and fluid balance, not elsewhere classified Status: Acute Assessment and Plan: Including mild hyponatremia and hypokalemia. Potassium was replaced and normal now. Sodium stable at 134. Follow (8) Benign prostatic hyperplasia: Code(s): N40.0 - Benign prostatic hyperplasia without lower urinary
[2022-03-17] MEDS: AMPICILLIN TRIHYDRATE 500 MG CAPSULE PO ×3 (08:32→23:54)
[2022-03-17] MEDS: LACTATED RINGERS 1,000 ML 30 ML IV CONT (10:05)
[2022-03-17] MEDS: TRANEXAMIC ACID 1,000MG/ISO100 1,000 MG/100 ML BAG 200 MG IVPB (10:10)
[2022-03-17] MEDS: KETOROLAC 15 MG/ML VIAL (*BKC) IV PUSH (10:11)
[2022-03-17] MEDS: ACETAMINOPHEN 500 MG TABLET 1000 MG PO (10:11)
[2022-03-17 10:19] LABS: Appearance Urine Clear (Clear); Bilirubin Urine Negative (Negative); Color Urine Yellow (Yellow); Glucose Urine UA Negative (Negative); Ketones Urine Negative (Negative); Leukocyte Esterase Ur 2+ LEU/UL (Negative); Nitrate Urine Negative (Negative); Protein Urine Negative (Negative); Specific Grav Ur 1.015 (1.001-1.035)
[2022-03-17 10:23] LABS: Add Urine Microscopic? YES; Blood Urine Trace-Intact (Negative)
[2022-03-17 10:29] LABS: Mucus Urine Rare /lpf; Squamous Epithelial Cell Urine Rare /hpf (Few)
--- NOTE | 2022-03-17 10:36 | WPDHPUPDATE1 ---
History and Physical Update Update Date/Time: 03/17/22 10:36 History and Physical has been reviewed, including an updated exam of the patient. There are NO changes in the patient's condition. Risks, benefits, and alternatives have been discussed and questions answered. Patient agrees to proceed with procedure.
[2022-03-17] MEDS: ceFAZolin 3 GM/D5W 100 ML 100 ML IVPB (10:52)
[2022-03-17] MEDS: BUPIVACAINE/EPINEPHRINE 0.25% 50 ML VIAL INFILTRATE (12:52)
--- NOTE | 2022-03-17 15:14 | W.PM.PROC2 ---
Procedure Note - Detailed Date of Procedure 03/17/22 Pre-op Diagnosis Afib Near Syncope/Left Hip Fracture Post-op Diagnosis Same Procedure Performed Left hip trochanteric nail Surgeon Jimy Jung MD Transformation Architect 1st retirement assistant Anesthesia General Indications 71-year-old gentleman with left hip intertrochanteric fracture. Patient with atrial fibrillation on Coumadin. His anticoagulation has been reversed. He has been evaluated by Cardiology. He presents now for operative treatment. Description of Procedure After informed consent the operative extremity was marked in the preoperative holding area. Patient received intravenous antibiotics. The patient was taken to the operative room, placed in the supine position, general anesthesia induced by the anesthesia team, and was placed on a fracture table with longitudinal traction applied to the left leg. The hip fracture was reduced to near anatomic position and verified with image intensification. A time-out was performed confirming the patient, site of the surgery and plan. The left lower extremity was prepped and draped sterilely from the knee to the iliac crest region using a ChloraPrep skin solution. Incision was made just proximal to greater trochanter down to the subcutaneous tissues. Hemostasis controlled with electrocautery. Blunt dissection through the fascia to the tip of the greater trochanter. A starter awl was placed at the tip of the greater trochanter into the medullary canal of the femur. This was checked with image intensification and was in good position. Intramedullary guide mohamud positioned. A one-step hand reaming done proximally. Intramedullary canal was reamed with a 12.5 millimeter flexible reamer. Measuring was then performed off of the guide mohamud. Neck angle selected off of preoperative radiographs temp plating. 125 degree 11 X 420mm Nail opened on the back table and assembled. This was then inserted over the guide mohamud to the correct depth. Guide mohamud removed. Lag screw was then placed with a stab incision over the lateral femur using a 10 blade knife. Blunt dissection down to the lateral side of the bone. Soft tissue protectors placed. Guide pin placed in the center center position of the femoral head and measured. 115 millimeter x 10.5 millimeter lag screw placed to correct depth and verified with image intensification. upon inspection of the fluoroscopic views in the lateral position it was noted that the femoral head and fracture fragment had rotated with placement of the lag screw. Lag screw was then removed. The fracture was re-reduced and provisionally pinned with the guide pin. A 2nd rotational pin was placed proximal to the lag screw guide pin. Drilling measuring and placement of the screw was then performed. To accommodate for compression a 120 mm by 10.5 mm lag screw was used. Traction released from the leg and compression of the fracture performed with the external compression device. Distal locking of the nail performed with the outrigger and soft tissue protector. Stab incision with 15 blade knife and blunt dissection lateral side of the femur. Drill and appropriate size screw placed. Final image intensification confirmed reduction of the fracture and placement of the hardware. Wounds then thoroughly irrigated with antibiotic solution. Due to the body habitus and depth of the wound it was felt that a drain was indicated. A medium Hemovac drain placed percutaneously at the proximal femoral wound. Fascia repaired with 0 Vicryl interrupted suture. Subcutaneous tissue repaired with 2 O Vicryl interrupted suture and skin repaired with clifton. Sterile dressings applied. Patient then awoke from anesthesia, extubated taken to recovery room stable condition. All sponge, needle and instrument counts correct at the end the case. Implants Arthrex 125 degree, 420 mm length by 11 mm nail, 10.5 x 120 mm leg screw, 5 x 40 mm distal locking screw. Estimated Blood Loss -
[2022-03-17] MEDS: SODIUM CHLORIDE 0.9% IV 1,000 ML 70 ML IV CONT (15:34)
[2022-03-17] MEDS: TAMSULOSIN HCL 0.4 MG CAPSULE PO (16:08)
[2022-03-17] MEDS: allopurinoL 100 MG TABLET PO (16:08)
[2022-03-17] MEDS: WARFARIN (*PBKC) 3 MG TABLET BY MOUTH (16:09)
[2022-03-17] MEDS: SENNA/DOCUSATE SODIUM TABLET 2 TAB PO (16:09)
[2022-03-17] MEDS: ceFAZolin 2 GM/D5W 50 ML 2 GM/50 ML BAG IVPB (17:45)
[2022-03-17] MEDS: HYDROcodone/acetaminophen (*CRX) 7.5-325 MG TABLET 1 TAB PO (23:57)
[2022-03-18] VITALS (12 sets, daily range): BP systolic 83–98; BP diastolic 40–60; PULSE 90–114; RESP 18–20; TEMP 36.6; O2SAT 92–94; BMI 10.0
[2022-03-18] MEDS: ceFAZolin 2 GM/D5W 50 ML 2 GM/50 ML BAG IVPB ×2 (01:26→10:43)
[2022-03-18 05:56] LABS: Basophils Absolute Auto 0.1 K/mm3 (0.0-0.1); Basophils Percent Auto 0.5 % (0.2-1.2); Eosinophils Absolute Auto 0.5 K/mm3 (0-0.3); Eosinophils Percent Auto 4.5 % (0-4.4); Hematocrit 30.1 % (42.0-52.0); Hemoglobin 9.6 g/dL (14.0-18.0); Immature Granulocyte Absolute 0.06 K/mm3 (0.00-0.031); Immature Granulocyte Percent A 0.6 % (0-0.5); Lymphocytes Absolute Auto 1.42 K/mm3 (0.9-3.2); Lymphocytes Percent Auto 13.1 % (18.3-44.2); Mean Corpuscular HGB Conc 31.9 g/dl (32-36); Mean Corpuscular Hemoglobin 32.2 pg (26-34); Mean Platelet Volume 10.5 fl (7.4-10.4); Monocytes Percent Auto 9.5 % (2.6-8.5); Neutrophils Absolute Auto 7.8 K/mm3 (1.3-6.7); Neutrophils Percent Auto 71.8 % (45.5-73.1); Platelet Count Result 194 k/mm3 (150-375); Red Blood Count 2.98 M/mm3 (4.6-6.20); Red Cell Distribution Width 14.3 % (11.5-14.5); White Blood Count 10.8 K/mm3 (4.5-10.0)
[2022-03-18] MEDS: AMPICILLIN TRIHYDRATE 500 MG CAPSULE PO ×2 (05:56→12:17)
[2022-03-18] MEDS: METOPROLOL TARTRATE 25 MG TABLET PO ×3 (05:56→20:28)
[2022-03-18 06:07] LABS: Anion Gap 7 mmol/L (8-16); Blood Urea Nitrogen 46 mg/dL (9-20); Carbon Dioxide 28 mmol/L (22-30); Chloride 96 mmol/L (98-107); Estimated CRCL calculation 49 ml/min; Estimated Glomerular Filt Rate 33; Glucose 116 mg/dL (65-110); Potassium 3.7 mmol/L (3.4-5.0); Sodium 131 mmol/L (137-145)
[2022-03-18 06:11] LABS: INR 1.4; Prothrombin Time 16.2 Seconds (11.1-14.7)
[2022-03-18] MEDS: SODIUM CHLORIDE 0.9% IV 1,000 ML 70 ML IV CONT (06:54)
[2022-03-18 07:11] LABS: Folic Acid 5.9 ng/mL (2.76->20)
--- NOTE | 2022-03-18 07:38 | ECG_ITS ---
Measurements Intervals [place] Rate: 106 P: AR: 0 QRS: 82 QRSD: 117 T: 31 QT: 349 QTc: 465 Interpretive Statements ATRIAL FIBRILLATION WITH RAPID VENTRICULAR RESPONSE LOW QRS VOLTAGE IN EXTREMITY LEADS INTRAVENTRICULAR CONDUCTION DELAY Electronically Signed On 03-18-2022 12:39:38 CDT by Brice Garcia M.D.
--- NOTE | 2022-03-18 07:39 | PM.PNCARD ---
Progress Note: A&P Assessment and Plan (1) Preop cardiovascular exam: Code(s): Z01.810 - Encounter for preprocedural cardiovascular examination Status: Acute Assessment and Plan: Risk profile: atrial fibrillation, hypertension, dyslipidemia, obesity. Functional status:<4 METs. Surgical risk: Moderate risk. Overall risk: Moderate risk. Discussed with patient that normally would undergo stress testing for CAD evaluation, but given acute hip fracture, he is willing to accept the surgical risk to fix his hip. Therefore, may proceed to noncardiac surgery which is hip surgery once INR is at acceptable level for surgery. Check post op EKG. (2) Syncope: Code(s): R55 - Syncope and collapse Status: Acute Assessment and Plan: Probably due to orthostatic syncope. Stopped diuretics. For edema of legs if it returns off diuretics is to wear compression stockings and keep legs elevated while seated. (3) Atrial fibrillation: Qualifiers: Atrial fibrillation type: unspecified chronic Qualified Code(s): I48.20 - Chronic atrial fibrillation, unspecified Code(s): I48.91 - Unspecified atrial fibrillation Status: Acute Assessment and Plan: [id number] 2. On warfarin and INR managed by PCP. Rate controlled. INR 1.4. He received Vit K and FFP. Monitor INR. Resumed Warfarin. Goal INR 2-3. (4) Hyperlipidemia: Code(s): E78.5 - Hyperlipidemia, unspecified Status: Acute Assessment and Plan: Stable. (5) Acute on chronic kidney failure: Qualifiers: Acute renal failure type: unspecified Chronic kidney disease stage: unspecified stage Qualified Code(s): N17.9 - Acute kidney failure, unspecified; N18.9 - Chronic kidney disease, unspecified Code(s): N17.9 - Acute kidney failure, unspecified; N18.9 - Chronic kidney disease, unspecified Status: Acute Assessment and Plan: Probably related to over-diuresis as edema resolved. Stopped diuretics and may hydrate to get kidney function back at baseline around Cr 1.3-1.4. (6) Hypertension: Code(s): I10 - Essential (primary) hypertension Status: Acute Assessment and Plan: Low normal. Changed Coreg to Metoprolol for rate control without significantly lowering BP. Subjective Date/time seen: 03/18/22 07:39 Denies chest pain or sob. Exam Const: General: cooperative, healthy appearing and comfortable Resp: Auscultation: clear to auscultation bilaterally, no crackles, no rales, no rhonchi and no wheezes Cardio: Jugular venous distension: no JVD Rate: regular rate Rhythm: abnormal rhythm Heart sounds: no murmurs Peripheral pulses: dorsalis pedis present GI: GI Palp: No abdominal tenderness and Yes Soft to palpation Neuro: General: oriented to person, oriented to place and oriented to time Extrem: Right lower extremity: no edema Left lower extremity: no edema Objective Data Vital Signs Vital Signs: Vital Signs - 24 hr 03/17/22 08:00 03/17/22 08:00 03/17/22 09:48 Temperature 97.8 F Pulse Rate 95 102 H Respiratory Rate 18 Blood Pressure 96/59 L Pulse Oximetry 97 Oxygen Delivery Room Air Room Air Oxygen Flow Rate 03/17/22 13:46 03/17/22 14:00 03/17/22 14:12 Temperature 97.9 F Pulse Rate 97 95 Respiratory Rate 20 18 Blood Pressure 102/83 112/67 Pulse Oximetry 95 99 94 Oxygen Delivery Simple Face Mask Simple Face Mask Room Air Oxygen Flow Rate 10 10 03/17/22 14:15 03/17/22 14:30 03/17/22 14:45 Temperature Pulse Rate 104 H 106 H 89 Respiratory Rate 20 18 16 Blood Pressure 109/81 113/68 105/72 Pulse Oximetry 94 92 94 Oxygen Delivery Room Air Room Air Nasal Cannula Oxygen Flow Rate 2 03/17/22 14:54 03/17/22 16:08 03/17/22 16:00 Temperature Pulse Rate 101 H 94 100 Respiratory Rate 18 Blood Pressure 100/72 Pulse Oximetry 92 Oxygen Delivery Nasal Cannula Oxygen Flow Rate 2 03/17/22 15:15 03/17/22 15:30
--- NOTE | 2022-03-18 08:12 | WPDANESPN ---
Anes - Prog Note Post-Op Date/Time: 03/18/22 08:12 Cardiovascular status: normal Respiratory status: normal Airway patency: baseline Mental status: baseline Post-Op hydration status: normal Vital Signs: Last Vital Signs Temp 36.6 C 03/18/22 03:17 Pulse 100 03/18/22 05:56 Resp 20 03/18/22 03:17 BP 90/60 L 03/18/22 03:17 Pulse Ox 92 03/18/22 03:17 O2 Del Method Room Air 03/17/22 20:00 O2 Flow Rate 2 03/17/22 14:54 Pain Score (VAS): 08/05 I/O: Intake & Output 03/17/22 03/18/22 03/18/22 23:59 07:59 15:59 Intake Total 1030 1200 Output Total 780 Balance 1030 420 Laboratory Tests 03/18/22 05:18 03/18/22 05:18 03/17/22 03/18/22 03/18/22 09:40 05:18 05:18 WBC RBC Hgb Hct MCV MCH MCHC RDW Plt Count MPV Immature Gran % (Auto) Neut % (Auto) Lymph % (Auto) Garden % (Auto) Eos % (Auto) Baso % (Auto) Lymph # (Auto) Garden # (Auto) Eos # (Auto) Baso # (Auto) Abs Immat Gran (auto) Absolute Neuts (auto) Absolute Nucleated RBC Nucleated RBC % PT 16.2 H INR 1.4 Sodium 131 L Potassium 3.7 Chloride 96 L Carbon Dioxide 28 Anion Gap 7 L BUN 46 H Creatinine 2.00 H Estim Creat Clear Calc 49 Estimated GFR 33 L Glucose 116 H Calcium 8.0 L Iron TIBC % Saturation Ferritin Vitamin B12 232.0 L Folate 5.9 Urine Color Yellow Urine Appearance Clear Urine pH 7.0 Ur Specific M[place]ot 1.015 Urine Protein Negative Urine Glucose (UA) Negative Urine Ketones Negative Ur Blood (Man) Trace-intact Urine Nitrate Negative Urine Bilirubin Negative Urine Urobilinogen 1.0 Leukocyte Esterase Rfl 2+ H Urine RBC 3-5 H Urine WBC 10-15 H Ur Squamous Epith Cells Rare Urine Mucus Rare 03/18/22 03/18/22 05:18 05:18 WBC 10.8 H RBC 2.98 L Hgb 9.6 L Hct 30.1 L MCV 101.0 H MCH 32.2 MCHC 31.9 L RDW 14.3 Plt Count 194 MPV 10.5 H Immature Gran % (Auto) 0.6 H Neut % (Auto) 71.8 Lymph % (Auto) 13.1 L Garden % (Auto) 9.5 H Eos % (Auto) 4.5 H Baso % (Auto) 0.5 Lymph # (Auto) 1.42 Garden # (Auto) 1.0 H Eos # (Auto) 0.5 H Baso # (Auto) 0.1 Abs Immat Gran (auto) 0.06 H Absolute Neuts (auto) 7.8 H Absolute Nucleated RBC 0.0 Nucleated RBC % 0.0 PT INR Sodium Potassium Chloride Carbon Dioxide Anion Gap BUN Creatinine Estim Creat Clear Calc Estimated GFR Glucose Calcium Iron Pending TIBC Pending % Saturation Pending Ferritin Pending Vitamin B12 Folate Urine Color Urine Appearance Urine pH Ur Specific [place]ot Urine Protein Urine Glucose (UA) Urine Ketones Ur Blood (Man) Urine Nitrate Urine Bilirubin Urine Urobilinogen Leukocyte Esterase Rfl Urine RBC Urine WBC Ur Squamous Epith Cells Urine Mucus Post-procedural complaints: none Patient Feedback: Patient satisfied with anesthetic care.
--- NOTE | 2022-03-18 08:26 | PCPTNOTE ---
Spoke with FAISAL Brown, patient will be getting an post op shoe for R foot and will be weight bearing as tolerated. Will see patient once shoes is available.
[2022-03-18] MEDS: TAMSULOSIN HCL 0.4 MG CAPSULE PO (08:37)
[2022-03-18] MEDS: polyethylene glycoL 3350 17 GM POWD.PACK PO (08:37)
[2022-03-18] MEDS: CYANOCOBALAMIN INJ 1,000 MCG/ML VIAL 1000 MCG IM (08:37)
[2022-03-18] MEDS: allopurinoL 100 MG TABLET PO (08:37)
[2022-03-18] MEDS: CYANOCOBALAMIN 1,000 MCG TABLET 1000 MCG PO (08:37)
[2022-03-18] MEDS: SENNA/DOCUSATE SODIUM TABLET 2 TAB PO ×2 (08:37→17:38)
[2022-03-18 11:12] LABS: Iron 23 ug/dL (49-181)
--- NOTE | 2022-03-18 11:17 | PCOTNOTE ---
Attempted to see pt. for occupational therapy. Pt. unable to be seen at this time for safety reasons due to low BP when not in supine, as seen with physical therapy. Will follow.
[2022-03-18 11:21] LABS: Percent Iron Saturation 10 % (20-50)
--- NOTE | 2022-03-18 11:36 | PM.PNORT ---
Progress Note: A&P Assessment and Plan (1) Intertrochanteric fracture of left hip: Qualifiers: Encounter type: initial encounter Fracture type: closed Fracture alignment: displaced Qualified Code(s): S72.142A - Displaced intertrochanteric fracture of left femur, initial encounter for closed fracture Code(s): S72.142A - Displaced intertrochanteric fracture of left femur, initial encounter for closed fracture Status: Acute Assessment and Plan: POD #1 PT/OT as tolerated, monitor BP with activity. WBAT. Walker. HIGH FALL RISK. Pain control. Ice Hip. Plan for dressing change/drain pull tomorrow if slowed output. SCDs. Incentive Spirometry. Resume home coumadin. No additional DVT prophylaxis indicated. Dispo: SNF or [facility]. (2) Foot fracture, right: Code(s): S92.901A - Unspecified fracture of right foot, initial encounter for closed fracture Status: Acute Assessment and Plan: WBAT. Post Op Shoe. (3) Acute on chronic kidney failure: Qualifiers: Acute renal failure type: unspecified Chronic kidney disease stage: unspecified stage Qualified Code(s): N17.9 - Acute kidney failure, unspecified; N18.9 - Chronic kidney disease, unspecified Code(s): N17.9 - Acute kidney failure, unspecified; N18.9 - Chronic kidney disease, unspecified Status: Acute Assessment and Plan: Diruetics held. Cardiology following. (4) Orthostatic hypotension: Code(s): I95.1 - Orthostatic hypotension Status: Acute Assessment and Plan: Cardiology following. Gentle IV fluids. Diruetics Held. Defer to hospitalist. HgB Stable. Monitor drain output. Subjective Subjective Date/Time Seen: 03/18/22 11:36 Post Op day: 1 Principal diagnosis: Left Hip Fracture Interval history: POD #1: ?Left hip trochanteric nail Difficulty with PT/OT this AM. Dizziness/hypotension with sitting at bedside. Pain 4/10 left hip. Denies right foot pain. No other concerns. Review of Systems Review of Systems: All systems reviewed & are unremarkable except as noted in HPI and below Exam Const: General: comfortable and no acute distress Orientation/consciousness: patient oriented x3 Limitations: no limitations Resp: Effort & Inspection: normal respiratory effort GI: Inspection: non-distended Skin: General skin exam: normal color Wounds: wounds noted (incision left hip C/D/I ) Other: Drain in place, left hip. Sanguinous drainage. Neuro: General: patient oriented x3 Extrem: Left lower extremity: hip/thigh Details: tenderness Location: of the hip Location: laterally and anteriorly, swelling (thigh soft ) Location: of the hip (lateral. ), abnormal ROM (limitations with internal/external rotation and flexion/extension due to recent surgical intervention ) and other (incision lateral hip c/d/i. ), knee Details: normal to inspection and normal ROM; no tenderness and no swelling, lower leg (Negative Alessandro's Sign ) Details: no edema, ankle (+ankle dorsiflexion/plantarflexion ) Details: normal to inspection, no edema and normal ROM; no tenderness, no swelling and no warmth and foot Details: normal capillary refill, toes with normal ROM, vascular exam Details: dorsalis pedis pulse present and motor-sensory exam light-touch normal in all toes; no tenderness, no ecchymosis and no crepitus Psych: Mental Status: mental status grossly normal Affect: normal affect Objective Data Vital Signs Vital Signs: Vital Signs - 24 hr 03/17/22 13:46 03/17/22 14:00 03/17/22 14:12 Temperature 36.6 C Pulse Rate 97 95 Respiratory Rate 20 18 Blood Pressure 102/83 112/67 Pulse Oximetry 95 99 94 Oxygen Delivery Simple Face Mask Simple Face Mask Room Air Oxygen Flow Rate 10 10 03/17/22 14:15 03/17/22 14:30 03/17/22 14:45 Temperature Pulse Rate 104 H 106 H 89 Respiratory Rate 20 18 16 Blood Pressure 109/81 113/68 105/72 Pulse Oximetry 94 92 94 Oxygen Delivery Room Air Room
--- NOTE | 2022-03-18 12:14 | PC.NURSE ---
Spoke with Dr Briceno via phone regarding patients most recent vital signs. New orders given for 1L bolus of NS 0.9
[2022-03-18] MEDS: SODIUM CHLORIDE 0.9% IV 1,000 ML 999 ML IV CONT (12:17)
--- NOTE | 2022-03-18 13:17 | PM.IMPN ---
Progress Note: A&P Assessment and Plan (1) Orthostatic hypotension: Code(s): I95.1 - Orthostatic hypotension Status: Acute Assessment and Plan: BP dropped when patient was up to the side of the bed and with standing. He was symptomatic. Could be orthostatic hypotension possibly related to dehydration. Consider also vasovagal related to pain. He has been receiving fluids and is fluid positive although urine output not accurate. His Coreg was changed to metoprolol. His Lasix, lisinopril and hydrochlorothiazide remain on hold. Sepsis seems unlikely. Could be related to prolonged bedrest. Flomax also has been known to cause orthostatic hypotension to this could be the etiology as well. Hold Flomax. Continue IV fluids. Discussed with Cardiology. Midodrine started. TSH normal. Check cortisol. (2) Syncope: Code(s): R55 - Syncope and collapse Status: Acute Assessment and Plan: This is his 2nd syncopal episode and the last 6 months (although tells me that this was more near-syncope). By history it sounds like he may have orthostatic hypotension. Orthostatic vital signs unable to be obtained due hip fracture. Telemetry noted. Echo July 2021 EF 55-60% with normal diastolic fxn. Carotid Dopplers showing <50% stenosis in the bilateral carotid arteries. Patient has refused brain CT due to claustrophobia. Suspect (near) syncope related to HoTN from dehydration; Lasix stopped. Also consider symptoms related to the Flomax. As above. Follow closely once he is ambulatory. (3) Intertrochanteric fracture of left hip: Qualifiers: Encounter type: initial encounter Fracture type: closed Fracture alignment: displaced Qualified Code(s): S72.142A - Displaced intertrochanteric fracture of left femur, initial encounter for closed fracture Code(s): S72.142A - Displaced intertrochanteric fracture of left femur, initial encounter for closed fracture Status: Acute Assessment and Plan: Sustained in fall following (near)syncopal episode. X-ray showing displaced left femoral IT fracture. INR was 2.3. Warfarin held. Vit K given. Analgesics available as needed. INR better today after FFP and repeat Vit K. Patient underwent left hip trochanteric nail placement 03/17. PT/OT started. May have trouble ambulating with the HoTH and the right metatarsal fractures. (4) Foot fracture, right: Code(s): S92.901A - Unspecified fracture of right foot, initial encounter for closed fracture Status: Acute Assessment and Plan: Patient states his toes bent backward when he fell. X-ray showing angulated fx of the 2nd-4th distal metatarsals and proximal aspect of the right proximal phalanges. Minimal pain to palpation (mostly around 4th toe). Increased pain when he bears weight on the foot. Ortho aware. This will impact his ability to ambulate after surgery. Now with left ankle pain so will image left maddi today. (5) Acute on chronic kidney failure: Qualifiers: Acute renal failure type: unspecified Chronic kidney disease stage: unspecified stage Qualified Code(s): N17.9 - Acute kidney failure, unspecified; N18.9 - Chronic kidney disease, unspecified Code(s): N17.9 - Acute kidney failure, unspecified; N18.9 - Chronic kidney disease, unspecified Status: Acute Assessment and Plan: BUN and creatinine are higher than baseline arguing that he may be dry; he appears dry on exam and blood pressures have been running soft. His lisinopril, lasix and HCTZ held, He was given IV fluids but renal function without much change. Renal US showing no acute findings. ATN from intermittent HoTN? Continue IV fluids. Check urine studies. (6) Atrial fibrillation: Qualifiers: Atrial fibrillation type: unspecified chronic Qualified Code(s): I48.20 - Chronic atrial fibrillation, unspecified Code(s): I48.91 - Unspecified atrial fibrillation Status: Acute
[2022-03-18] MEDS: MIDODRINE HCL 2.5 MG TABLET 5 MG PO ×2 (13:38→17:38)
[2022-03-18] MEDS: HYDROmorphone HCL INJ (*CRX) 1 MG/ML SYR IV PUSH (14:08)
--- NOTE | 2022-03-18 14:15 | PC.NURSE ---
Updated Dr Briceno on BP after giving 1L bolus and confirmed it was ok to give pain medication at this time.
[2022-03-18 14:23] LABS: Creatine Kinase 515 U/L (55-170)
--- NOTE | 2022-03-18 15:01 | PCOTNOTE ---
Attempted to see pt. for occupational therapy evaluation. Pt. refused to participate at this time due to not feeling well , nursing reports that pt. blood pressure has gone up, but pt. is now reporting pain. Will follow
[2022-03-18 17:32] LABS: Creatinine Urine 84.6 mg/dL; Sodium Urine Random 28 meq/L
[2022-03-18] MEDS: WARFARIN (*PBKC) 3 MG TABLET BY MOUTH (17:38)
[2022-03-18] MEDS: FERROUS SULFATE 324 MG TABLET PO (17:38)
[2022-03-18 17:50] LABS: Eosinophil Urine None Seen % (None Seen)
[2022-03-18] MEDS: AMOXICILLIN 500 MG CAPSULE PO (20:28)
[2022-03-19] VITALS (12 sets, daily range): BP systolic 97–109; BP diastolic 49–74; PULSE 89–108; RESP 16–18; TEMP 36.1–36.6; O2SAT 94–97; BMI 10.0
[2022-03-19] MEDS: HYDROcodone/acetaminophen (*CRX) 7.5-325 MG TABLET 1 TAB PO ×2 (04:51→20:59)
[2022-03-19] MEDS: METOPROLOL TARTRATE 25 MG TABLET PO ×2 (04:52→13:30)
[2022-03-19] MEDS: AMOXICILLIN 500 MG CAPSULE PO ×3 (04:52→20:57)
[2022-03-19] MEDS: SODIUM CHLORIDE 0.9% IV 1,000 ML 70 ML IV CONT ×2 (04:54→13:34)
[2022-03-19 05:50] LABS: Basophils Percent Auto 0.3 % (0.2-1.2); Eosinophils Absolute Auto 0.5 K/mm3 (0-0.3); Eosinophils Percent Auto 4.6 % (0-4.4); Hematocrit 27.8 % (42.0-52.0); Immature Granulocyte Absolute 0.08 K/mm3 (0.00-0.031); Immature Granulocyte Percent A 0.7 % (0-0.5); Lymphocytes Percent Auto 15.6 % (18.3-44.2); Mean Corpuscular HGB Conc 32.4 g/dl (32-36); Mean Corpuscular Hemoglobin 32.7 pg (26-34); Mean Corpuscular Volume 101.1 fl (80-100); Mean Platelet Volume 10.6 fl (7.4-10.4); Monocytes Absolute Auto 1.3 K/mm3 (0.1-0.6); Monocytes Percent Auto 11.6 % (2.6-8.5); Neutrophils Absolute Auto 7.8 K/mm3 (1.3-6.7); Neutrophils Percent Auto 67.2 % (45.5-73.1); Platelet Count Result 192 k/mm3 (150-375); Red Blood Count 2.75 M/mm3 (4.6-6.20); Red Cell Distribution Width 14.6 % (11.5-14.5); White Blood Count 11.6 K/mm3 (4.5-10.0)
[2022-03-19 05:59] LABS: Albumin Level 2.7 g/dL (3.5-5.1); Anion Gap 7 mmol/L (8-16); Blood Urea Nitrogen 37 mg/dL (9-20); Calcium 8.1 mg/dL (8.4-10.2); Carbon Dioxide 26 mmol/L (22-30); Chloride 97 mmol/L (98-107); Estimated CRCL calculation 58 ml/min; Estimated Glomerular Filt Rate 40; Glucose 127 mg/dL (65-110); Magnesium 2.2 mg/dL (1.6-2.3); Phosphorus 2.2 mg/dL (2.5-4.5); Potassium 3.7 mmol/L (3.4-5.0); Sodium 130 mmol/L (137-145)
[2022-03-19 06:06] LABS: INR 1.4; Prothrombin Time 16.9 Seconds (11.1-14.7)
--- NOTE | 2022-03-19 07:41 | PM.PNCARD ---
Progress Note: A&P Assessment and Plan (1) Preop cardiovascular exam: Code(s): Z01.810 - Encounter for preprocedural cardiovascular examination Status: Acute Assessment and Plan: Risk profile: atrial fibrillation, hypertension, dyslipidemia, obesity. Functional status:<4 METs. Surgical risk: Moderate risk. Overall risk: Moderate risk. Discussed with patient that normally would undergo stress testing for CAD evaluation, but given acute hip fracture, he is willing to accept the surgical risk to fix his hip. Therefore, may proceed to noncardiac surgery which is hip surgery once INR is at acceptable level for surgery. Post op EKG shows no ischemic ST changes. (2) Syncope: Code(s): R55 - Syncope and collapse Status: Acute Assessment and Plan: Probably due to orthostatic syncope. Stopped diuretics. For edema of legs if it returns off diuretics is to wear compression stockings and keep legs elevated while seated. Started Midodrine 5 mg TID when expected to be upright throughout the day. (3) Atrial fibrillation: Qualifiers: Atrial fibrillation type: unspecified chronic Qualified Code(s): I48.20 - Chronic atrial fibrillation, unspecified Code(s): I48.91 - Unspecified atrial fibrillation Status: Acute Assessment and Plan: [id number] 2. On warfarin and INR managed by PCP. Rate controlled. INR 1.4. He received Vit K and FFP. Monitor INR. Resumed Warfarin. Goal INR 2-3. (4) Hyperlipidemia: Code(s): E78.5 - Hyperlipidemia, unspecified Status: Acute Assessment and Plan: Stable. (5) Acute on chronic kidney failure: Qualifiers: Acute renal failure type: unspecified Chronic kidney disease stage: unspecified stage Qualified Code(s): N17.9 - Acute kidney failure, unspecified; N18.9 - Chronic kidney disease, unspecified Code(s): N17.9 - Acute kidney failure, unspecified; N18.9 - Chronic kidney disease, unspecified Status: Acute Assessment and Plan: Probably related to over-diuresis as edema resolved. Stopped diuretics and may hydrate to get kidney function back at baseline around Cr 1.3-1.4. Cr showing some recovery at 1.7. (6) Hypertension: Code(s): I10 - Essential (primary) hypertension Status: Acute Assessment and Plan: Low normal. Changed Coreg to Metoprolol for rate control without significantly lowering BP. Subjective Date/time seen: 03/19/22 07:41 He had dizziness when upright yesterday and mildly this morning. No chest pain or sob. Exam Const: General: cooperative, healthy appearing and comfortable Resp: Auscultation: clear to auscultation bilaterally, no crackles, no rales, no rhonchi and no wheezes Cardio: Jugular venous distension: no JVD Rate: regular rate Rhythm: abnormal rhythm Heart sounds: no murmurs Peripheral pulses: dorsalis pedis present GI: GI Palp: No abdominal tenderness and Yes Soft to palpation Neuro: General: oriented to person, oriented to place and oriented to time Extrem: Right lower extremity: no edema Left lower extremity: no edema Objective Data Vital Signs Vital Signs: Vital Signs - 24 hr 03/18/22 08:32 03/18/22 11:29 03/18/22 11:30 Temperature Pulse Rate 98 Respiratory Rate Blood Pressure 83/40 L 85/53 L Pulse Oximetry Oxygen Delivery 03/18/22 10:42 03/18/22 14:47 03/18/22 15:28 Temperature 97.9 F Pulse Rate 104 H 105 H Respiratory Rate 18 Blood Pressure 98/56 L Pulse Oximetry 94 Oxygen Delivery Room Air 03/18/22 16:00 03/18/22 20:00 03/18/22 20:28 Temperature Pulse Rate 96 114 H 104 H Respiratory Rate Blood Pressure Pulse Oximetry Oxygen Delivery 03/18/22 20:00 03/19/22 00:00 03/19/22 04:00 Temperature Pulse Rate 104 H 96 94 Respiratory Rate 18 Blood Pressure Pulse Oximetry 94 Oxygen Delivery Room Air 03/19/22 04:52 Temperature Pulse Rate 96 Respiratory Rate
[2022-03-19] MEDS: polyethylene glycoL 3350 17 GM POWD.PACK PO (08:10)
[2022-03-19] MEDS: allopurinoL 100 MG TABLET PO (08:11)
[2022-03-19] MEDS: MIDODRINE HCL 2.5 MG TABLET 5 MG PO ×3 (08:11→17:23)
[2022-03-19] MEDS: FERROUS SULFATE 324 MG TABLET PO ×2 (08:11→17:23)
[2022-03-19] MEDS: SENNA/DOCUSATE SODIUM TABLET 2 TAB PO ×2 (08:11→17:23)
[2022-03-19] MEDS: CYANOCOBALAMIN 1,000 MCG TABLET 1000 MCG PO (09:33)
--- NOTE | 2022-03-19 09:36 | PM.PNORT ---
Progress Note: A&P Assessment and Plan (1) Intertrochanteric fracture of left hip: Qualifiers: Encounter type: initial encounter Fracture type: closed Fracture alignment: displaced Qualified Code(s): S72.142A - Displaced intertrochanteric fracture of left femur, initial encounter for closed fracture Code(s): S72.142A - Displaced intertrochanteric fracture of left femur, initial encounter for closed fracture Status: Acute Assessment and Plan: POD #2 PT/OT as tolerated, monitor BP with activity. WBAT. Walker. HIGH FALL RISK. Pain control. Ice Hip. SCDs. Incentive Spirometry. Resume home coumadin. No additional DVT prophylaxis indicated. Drain removed today. Dispo: SNF or [facility]. (2) Foot fracture, right: Code(s): S92.901A - Unspecified fracture of right foot, initial encounter for closed fracture Status: Acute Assessment and Plan: WBAT. Post Op Shoe. (3) Ankle pain, left: Qualifiers: Chronicity: acute Qualified Code(s): M25.572 - Pain in left ankle and joints of left foot Code(s): M25.572 - Pain in left ankle and joints of left foot Status: Acute Assessment and Plan: patient tender to palpation over the distal fibula. No crepitance noted. Radiographs show lateral cortical irregularity but no complete fracture line or break. Discussed with patient. Fracture boot offered but declined by the patient as he states to difficult to ambulate with. was able to tolerate therapy this morning. We will continue to monitor. Weight-bearing as tolerated in the interim. Subjective Subjective Date/Time Seen: 03/19/22 09:36 Post Op day: 2 Principal diagnosis: left hip fracture Interval history: patient up to chair. States feeling little bit better today. Does complain of lateral left ankle pain. Was able to bear weight. States hip pain improved. Exam Const: General: no acute distress Orientation/consciousness: patient oriented x3 Resp: Effort & Inspection: normal respiratory effort Skin: General skin exam: normal color Wounds: wounds noted (incision left hip C/D/I ) Other: Drain in place, left hip. Sanguinous drainage. Neuro: General: patient oriented x3 Extrem: Left lower extremity: hip/thigh Details: tenderness Location: of the hip Location: laterally and anteriorly, swelling (thigh soft ) Location: of the hip (lateral. ), abnormal ROM (limitations with internal/external rotation and flexion/extension due to recent surgical intervention ) and other (incision lateral hip c/d/i. ), knee Details: normal to inspection and normal ROM; no tenderness and no swelling, lower leg (Negative Alessandro's Sign ) Details: no edema, ankle (+ankle dorsiflexion/plantarflexion ) Details: normal to inspection, no edema and normal ROM; no tenderness, no swelling and no warmth and foot Details: normal capillary refill, toes with normal ROM, vascular exam Details: dorsalis pedis pulse present and motor-sensory exam light-touch normal in all toes; no tenderness, no ecchymosis and no crepitus Psych: Mental Status: mental status grossly normal Affect: normal affect Objective Data Vital Signs Vital Signs: Vital Signs - 24 hr 03/18/22 11:29 03/18/22 11:30 03/18/22 10:42 Temperature Pulse Rate Respiratory Rate Blood Pressure 83/40 L 85/53 L Pulse Oximetry Oxygen Delivery Room Air 03/18/22 14:47 03/18/22 15:28 03/18/22 16:00 Temperature 97.9 F Pulse Rate 104 H 105 H 96 Respiratory Rate 18 Blood Pressure 98/56 L Pulse Oximetry 94 Oxygen Delivery 03/18/22 20:00 03/18/22 20:28 03/18/22 20:00 Temperature Pulse Rate 114 H 104 H 104 H Respiratory Rate 18 Blood Pressure Pulse Oximetry 94 Oxygen Delivery Room Air 03/19/22 00:00 03/19/22 04:00 03/19/22 04:52 Temperature Pulse Rate 96 94 96 Respiratory Rate Blood Pressure Pulse Oximetry Oxygen Delivery 03/19/22 08:00 [facility]
[2022-03-19] MEDS: HYDROmorphone HCL INJ (*CRX) 1 MG/ML SYR IV PUSH (11:31)
--- NOTE | 2022-03-19 16:47 | PM.IMPN ---
Progress Note: A&P Assessment and Plan (1) Orthostatic hypotension: Code(s): I95.1 - Orthostatic hypotension Status: Acute Assessment and Plan: BP dropped when patient was up to the side of the bed and with standing. He was symptomatic. Could be orthostatic hypotension possibly related to dehydration. Consider also vasovagal related to pain. He has been receiving fluids and is fluid positive although urine output not accurate. His Coreg was changed to metoprolol. His Lasix, lisinopril and hydrochlorothiazide remain on hold. Sepsis seems unlikely. Could be related to prolonged bedrest. Flomax also has been known to cause orthostatic hypotension to this could be the etiology as well. Hold Flomax. Continue IV fluids. Discussed with Cardiology. Midodrine started. TSH normal. cortisol level at 14 (2) Syncope: Code(s): R55 - Syncope and collapse Status: Acute Assessment and Plan: This is his 2nd syncopal episode and the last 6 months (although tells me that this was more near-syncope). By history it sounds like he may have orthostatic hypotension. Orthostatic vital signs unable to be obtained due hip fracture. Telemetry noted. Echo July 2021 EF 55-60% with normal diastolic fxn. Carotid Dopplers showing <50% stenosis in the bilateral carotid arteries. Patient has refused brain CT due to claustrophobia. Suspect (near) syncope related to HoTN from dehydration; Lasix stopped. Also consider symptoms related to the Flomax. As above. Follow closely once he is ambulatory. (3) Intertrochanteric fracture of left hip: Qualifiers: Encounter type: initial encounter Fracture type: closed Fracture alignment: displaced Qualified Code(s): S72.142A - Displaced intertrochanteric fracture of left femur, initial encounter for closed fracture Code(s): S72.142A - Displaced intertrochanteric fracture of left femur, initial encounter for closed fracture Status: Acute Assessment and Plan: Sustained in fall following (near)syncopal episode. X-ray showing displaced left femoral IT fracture. INR was 2.3. Warfarin held. Vit K given. Analgesics available as needed. INR better today after FFP and repeat Vit K. Patient underwent left hip trochanteric nail placement 03/17. PT/OT started. May have trouble ambulating with the HoTH and the right metatarsal fractures. (4) Foot fracture, right: Code(s): S92.901A - Unspecified fracture of right foot, initial encounter for closed fracture Status: Acute Assessment and Plan: Patient states his toes bent backward when he fell. X-ray showing angulated fx of the 2nd-4th distal metatarsals and proximal aspect of the right proximal phalanges. Minimal pain to palpation (mostly around 4th toe). Increased pain when he bears weight on the foot. Ortho aware. This will impact his ability to ambulate after surgery. Now with left ankle pain. X-ray ankle showed apparent cortical break along the lateral aspect of the distal left fibula may represent artifact old injury or any acute fracture if there is corresponding pain/point tenderness. Fracture boot was offered but declined the patient. Was able to tolerate therapy this morning. Weightbearing as tolerated (5) Acute on chronic kidney failure: Qualifiers: Acute renal failure type: unspecified Chronic kidney disease stage: unspecified stage Qualified Code(s): N17.9 - Acute kidney failure, unspecified; N18.9 - Chronic kidney disease, unspecified Code(s): N17.9 - Acute kidney failure, unspecified; N18.9 - Chronic kidney disease, unspecified Status: Acute Assessment and Plan: BUN and creatinine are higher than baseline arguing that he may be dry; he appears dry on exam and blood pressures have been running soft. His lisinopril, lasix and HCTZ held, He was given IV fluids but renal function without much change. Renal US showing no acute findings. ATN from intermittent HoTN?
[2022-03-19] MEDS: WARFARIN (*PBKC) 3 MG TABLET BY MOUTH (17:24)
[2022-03-20] VITALS (15 sets, daily range): BP systolic 97–129; BP diastolic 49–85; PULSE 91–110; RESP 16–18; TEMP 36.3–37.2; O2SAT 94–99
[2022-03-20] MEDS: HYDROcodone/acetaminophen (*CRX) 7.5-325 MG TABLET 1 TAB PO (06:04)
[2022-03-20] MEDS: AMOXICILLIN 500 MG CAPSULE PO ×3 (06:04→21:16)
[2022-03-20 06:09] LABS: Basophils Percent Auto 0.4 % (0.2-1.2); Eosinophils Absolute Auto 0.6 K/mm3 (0-0.3); Eosinophils Percent Auto 5.6 % (0-4.4); Hematocrit 26.8 % (42.0-52.0); Hemoglobin 8.6 g/dL (14.0-18.0); Immature Granulocyte Absolute 0.07 K/mm3 (0.00-0.031); Immature Granulocyte Percent A 0.7 % (0-0.5); Lymphocytes Percent Auto 16.8 % (18.3-44.2); Mean Corpuscular HGB Conc 32.1 g/dl (32-36); Mean Corpuscular Hemoglobin 32.8 pg (26-34); Mean Corpuscular Volume 102.3 fl (80-100); Mean Platelet Volume 10.7 fl (7.4-10.4); Monocytes Absolute Auto 1.3 K/mm3 (0.1-0.6); Monocytes Percent Auto 12.5 % (2.6-8.5); Neutrophils Absolute Auto 6.9 K/mm3 (1.3-6.7); Nucleated Red Blood Cells Perc 0.2 % (0.0-0.2); Platelet Count Result 209 k/mm3 (150-375); Red Blood Count 2.62 M/mm3 (4.6-6.20); Red Cell Distribution Width 14.6 % (11.5-14.5); White Blood Count 10.7 K/mm3 (4.5-10.0)
[2022-03-20 06:14] LABS: Alanine Aminotransferase 8 U/L (6-50); Albumin Level 2.8 g/dL (3.5-5.1); Alkaline Phosphatase 57 U/L (38-126); Anion Gap 6 mmol/L (8-16); Aspartate Amino Transferase 31 U/L (17-59); Bilirubin,Total 1.1 mg/dL (0.2-1.3); Blood Urea Nitrogen 31 mg/dL (9-20); Calcium 7.8 mg/dL (8.4-10.2); Carbon Dioxide 25 mmol/L (22-30); Chloride 104 mmol/L (98-107); Estimated CRCL calculation 65 ml/min; Estimated Glomerular Filt Rate 46; Glucose 107 mg/dL (65-110); Magnesium 2.3 mg/dL (1.6-2.3); Potassium 3.8 mmol/L (3.4-5.0); Sodium 135 mmol/L (137-145)
[2022-03-20 07:15] LABS: INR 1.6; Prothrombin Time 18.4 Seconds (11.1-14.7)
--- NOTE | 2022-03-20 07:52 | PM.PNCARD ---
Progress Note: A&P Assessment and Plan (1) Preop cardiovascular exam: Code(s): Z01.810 - Encounter for preprocedural cardiovascular examination Status: Acute Assessment and Plan: Risk profile: atrial fibrillation, hypertension, dyslipidemia, obesity. Functional status:<4 METs. Surgical risk: Moderate risk. Overall risk: Moderate risk. Discussed with patient that normally would undergo stress testing for CAD evaluation, but given acute hip fracture, he is willing to accept the surgical risk to fix his hip. Therefore, may proceed to noncardiac surgery which is hip surgery once INR is at acceptable level for surgery. Post op EKG shows no ischemic ST changes. (2) Syncope: Code(s): R55 - Syncope and collapse Status: Acute Assessment and Plan: Probably due to orthostatic syncope. Stopped diuretics. For edema of legs if it returns off diuretics is to wear compression stockings and keep legs elevated while seated. Started Midodrine 5 mg TID when expected to be upright throughout the day. (3) Atrial fibrillation: Qualifiers: Atrial fibrillation type: unspecified chronic Qualified Code(s): I48.20 - Chronic atrial fibrillation, unspecified Code(s): I48.91 - Unspecified atrial fibrillation Status: Acute Assessment and Plan: [id number] 2. On warfarin and INR managed by PCP. Rate controlled. INR 1.6. He received Vit K and FFP. Monitor INR. Resumed Warfarin. Goal INR 2-3. (4) Hyperlipidemia: Code(s): E78.5 - Hyperlipidemia, unspecified Status: Acute Assessment and Plan: Stable. (5) Acute on chronic kidney failure: Qualifiers: Acute renal failure type: unspecified Chronic kidney disease stage: unspecified stage Qualified Code(s): N17.9 - Acute kidney failure, unspecified; N18.9 - Chronic kidney disease, unspecified Code(s): N17.9 - Acute kidney failure, unspecified; N18.9 - Chronic kidney disease, unspecified Status: Acute Assessment and Plan: Probably related to over-diuresis as edema resolved. Stopped diuretics and may hydrate to get kidney function back at baseline around Cr 1.3-1.4. Cr showing significant recovery at 1.5. (6) Hypertension: Code(s): I10 - Essential (primary) hypertension Status: Acute Assessment and Plan: Low normal. Changed Coreg to Metoprolol for rate control without significantly lowering BP. Subjective Date/time seen: 03/20/22 07:52 Denies chest pain or sob. Exam Const: General: cooperative, healthy appearing and comfortable Resp: Auscultation: clear to auscultation bilaterally, no crackles, no rales, no rhonchi and no wheezes Cardio: Jugular venous distension: no JVD Rate: tachycardic Rhythm: abnormal rhythm Heart sounds: no murmurs Peripheral pulses: dorsalis pedis present GI: GI Palp: No abdominal tenderness and Yes Soft to palpation Neuro: General: oriented to person, oriented to place and oriented to time Extrem: Right lower extremity: no edema Left lower extremity: no edema Objective Data Vital Signs Vital Signs: Vital Signs - 24 hr 03/19/22 08:00 03/19/22 09:48 03/19/22 12:00 Temperature 98 F Pulse Rate 93 96 93 Respiratory Rate 16 Blood Pressure 100/68 Pulse Oximetry 97 03/19/22 13:30 03/19/22 14:21 03/19/22 16:00 Temperature 97 F L Pulse Rate 95 94 89 Respiratory Rate 16 Blood Pressure 109/74 Pulse Oximetry 94 03/19/22 19:50 03/19/22 20:56 03/19/22 20:00 Temperature 97.5 F L Pulse Rate 97 108 H 91 Respiratory Rate 18 Blood Pressure 97/49 L Pulse Oximetry 96 03/20/22 00:00 03/20/22 04:00 03/20/22 05:38 Temperature 97.7 F Pulse Rate 98 102 H 106 H Respiratory Rate 18 Blood Pressure 97/49 L Pulse Oximetry 95 03/20/22 06:06 Temperature Pulse Rate 106 H Respiratory Rate Blood Pressure Pulse Oximetry Intake/Output Intake/Output: Intake & Output 03/17/22 03/18/22 03/19/22
[2022-03-20] MEDS: SENNA/DOCUSATE SODIUM TABLET 2 TAB PO ×2 (08:34→17:49)
[2022-03-20] MEDS: allopurinoL 100 MG TABLET PO (08:34)
[2022-03-20] MEDS: FERROUS SULFATE 324 MG TABLET PO ×2 (08:34→17:49)
[2022-03-20] MEDS: polyethylene glycoL 3350 17 GM POWD.PACK PO (08:35)
[2022-03-20] MEDS: MIDODRINE HCL 2.5 MG TABLET 5 MG PO ×3 (08:35→17:49)
[2022-03-20] MEDS: CYANOCOBALAMIN 1,000 MCG TABLET 1000 MCG PO (08:35)
--- NOTE | 2022-03-20 11:34 | P.PNIM_ITS ---
Progress Note: A&P Assessment and Plan (1) Orthostatic hypotension: Code(s): I95.1 - Orthostatic hypotension Status: Acute Assessment and Plan: BP dropped when patient was up to the side of the bed and with standing. He was symptomatic. Could be orthostatic hypotension possibly related to dehydration. Consider also vasovagal related to pain. He has been receiving fluids and is fluid positive although urine output not accurate. His Coreg was changed to metoprolol. His Lasix, lisinopril and hydrochlorothiazide remain on hold. Sepsis seems unlikely. Could be related to prolonged bedrest. Flomax also has been known to cause orthostatic hypotension to this could be the etiology as well. Hold Flomax. Continue IV fluids. Discussed with Cardiology. Midodrine started. TSH normal. cortisol level at 14 (2) Syncope: Code(s): R55 - Syncope and collapse Status: Acute Assessment and Plan: This is his 2nd syncopal episode and the last 6 months (although tells me that this was more near-syncope). By history it sounds like he may have orthostatic hypotension. Orthostatic vital signs unable to be obtained due hip fracture. Telemetry noted. Echo July 2021 EF 55-60% with normal diastolic fxn. Carotid Dopplers showing <50% stenosis in the bilateral carotid arteries. Patient has refused brain CT due to claustrophobia. Suspect (near) syncope related to HoTN from dehydration; Lasix stopped. Also consider symptoms related to the Flomax. As above. Follow closely once he is ambulatory. (3) Intertrochanteric fracture of left hip: Qualifiers: Encounter type: initial encounter Fracture type: closed Fracture alignment: displaced Qualified Code(s): S72.142A - Displaced intertrochanteric fracture of left femur, initial encounter for closed fracture Code(s): S72.142A - Displaced intertrochanteric fracture of left femur, initial encounter for closed fracture Status: Acute Assessment and Plan: Sustained in fall following (near)syncopal episode. X-ray showing displaced left femoral IT fracture. INR was 2.3. Warfarin held. Vit K given. Analgesics available as needed. INR better today after FFP and repeat Vit K. Patient un derwent left hip trochanteric nail placement 03/17. PT/OT started. May have trouble ambulating with the HoTH and the right metatarsal fractures. (4) Foot fracture, right: Code(s): S92.901A - Unspecified fracture of right foot, initial encounter for closed fracture Status: Acute Assessment and Plan: Patient states his toes bent backward when he fell. X-ray showing angulated fx of the 2nd-4th distal metatarsals and proximal aspect of the right proximal phalanges. Minimal pain to palpation (mostly around 4th toe). Increased pain when he bears weight on the foot. Ortho aware. This will impact his ability to ambulate after surgery. Now with left ankle pain. X-ray ankle showed apparent cortical break along the lateral aspect of the distal left fibula may represent artifact old injury or any acute fracture if there is corresponding pain/point tenderness. Fracture boot was offered but declined the patient. Was able to tolerate therapy this morning. Weightbearing as tolerated (5) Acute on chronic kidney failure: Qualifiers: Acute renal failure type: unspecified Chronic kidney disease stage: unspecified stage Qualified Code(s): N17.9 - Acute kidney failure, unspecified; N18.9 - Chronic kidney disease, unspecified Code(s): N17.9 - Acute kidney failure, unspecified; N18.9 - Chronic kidney disease, unspecified Status: Acute Assessment and Plan: BUN and creati
--- NOTE | 2022-03-20 12:12 | PM.PNORT ---
Progress Note: A&P Assessment and Plan (1) Intertrochanteric fracture of left hip: Qualifiers: Encounter type: initial encounter Fracture type: closed Fracture alignment: displaced Qualified Code(s): S72.142A - Displaced intertrochanteric fracture of left femur, initial encounter for closed fracture Code(s): S72.142A - Displaced intertrochanteric fracture of left femur, initial encounter for closed fracture Status: Acute Assessment and Plan: POD #3 PT/OT as tolerated, monitor BP with activity. WBAT. Walker. HIGH FALL RISK. Pain control. Ice Hip. SCDs. Incentive Spirometry. Resume home coumadin. No additional DVT prophylaxis indicated. Dispo: SNF or [facility]. (2) Foot fracture, right: Code(s): S92.901A - Unspecified fracture of right foot, initial encounter for closed fracture Status: Acute Assessment and Plan: WBAT. Post Op Shoe. (3) Ankle pain, left: Qualifiers: Chronicity: acute Qualified Code(s): M25.572 - Pain in left ankle and joints of left foot Code(s): M25.572 - Pain in left ankle and joints of left foot Status: Acute Assessment and Plan: Radiographs show lateral cortical irregularity but no complete fracture line or break. Discussed with patient. Fracture boot offered but declined by the patient as he states to difficult to ambulate with. was able to tolerate therapy this morning. We will continue to monitor. Weight-bearing as tolerated in the interim. Subjective Subjective Date/Time Seen: 03/20/22 12:12 Post Op day: 3 Principal diagnosis: left hip fracture Interval history: Pain improved today. No left ankle pain today. Pain in the right foot when working with PT/OT. Tired. No other concerns. Review of Systems Review of Systems: All systems reviewed & are unremarkable except as noted in HPI and below Exam Const: General: no acute distress Orientation/consciousness: patient oriented x3 Resp: Effort & Inspection: normal respiratory effort Skin: General skin exam: normal color Wounds: wounds noted (incision left hip C/D/I ) Neuro: General: patient oriented x3 Extrem: Left lower extremity: hip/thigh Details: tenderness Location: of the hip Location: laterally and anteriorly, swelling (thigh soft ) Location: of the hip (lateral. ), abnormal ROM (limitations with internal/external rotation and flexion/extension due to recent surgical intervention ) and other (incision lateral hip c/d/i. ), knee Details: normal to inspection and normal ROM; no tenderness and no swelling, lower leg (Negative Alessandro's Sign ) Details: no edema, ankle (+ankle dorsiflexion/plantarflexion ) Details: normal to inspection, no edema and normal ROM; no tenderness, no swelling and no warmth and foot Details: normal capillary refill, toes with normal ROM, vascular exam Details: dorsalis pedis pulse present and motor-sensory exam light-touch normal in all toes; no tenderness, no ecchymosis and no crepitus Psych: Mental Status: mental status grossly normal Affect: normal affect Objective Data Vital Signs Vital Signs: Vital Signs - 24 hr 03/19/22 13:30 03/19/22 14:21 03/19/22 16:00 Temperature 36.1 C L Pulse Rate 95 94 89 Respiratory Rate 16 Blood Pressure 109/74 Pulse Oximetry 94 03/19/22 19:50 03/19/22 20:56 03/19/22 20:00 Temperature 36.4 C L Pulse Rate 97 108 H 91 Respiratory Rate 18 Blood Pressure 97/49 L Pulse Oximetry 96 03/20/22 00:00 03/20/22 04:00 03/20/22 05:38 Temperature 36.5 C Pulse Rate 98 102 H 106 H Respiratory Rate 18 Blood Pressure 97/49 L Pulse Oximetry 95 03/20/22 06:06 03/20/22 10:29 03/20/22 10:30 Temperature Pulse Rate 106 H Respiratory Rate Blood Pressure 107/74 129/85 Pulse Oximetry 03/20/22 10:30 03/20/22 08:00 Temperature Pulse Rate 110 H Respiratory Rate Blood Pressure 103/77 Pulse Oximetry Intake/Output Intake/Output: Intake & Out
[2022-03-20] MEDS: METOPROLOL TARTRATE 25 MG TABLET PO ×2 (14:12→21:16)
[2022-03-20] MEDS: WARFARIN (*PBKC) 3 MG TABLET BY MOUTH (17:49)
[2022-03-20] MEDS: HYDROmorphone HCL INJ (*CRX) 1 MG/ML SYR IV PUSH (18:10)
[2022-03-21] VITALS (9 sets, daily range): BP systolic 107–122; BP diastolic 70–85; PULSE 78–103; RESP 18; TEMP 36.3; O2SAT 97
[2022-03-21 04:54] LABS: Basophils Absolute Auto 0.1 K/mm3 (0.0-0.1); Basophils Percent Auto 0.4 % (0.2-1.2); Eosinophils Absolute Auto 0.6 K/mm3 (0-0.3); Eosinophils Percent Auto 4.6 % (0-4.4); Hematocrit 28.4 % (42.0-52.0); Immature Granulocyte Absolute 0.15 K/mm3 (0.00-0.031); Immature Granulocyte Percent A 1.2 % (0-0.5); Lymphocytes Absolute Auto 1.75 K/mm3 (0.9-3.2); Lymphocytes Percent Auto 14.2 % (18.3-44.2); Mean Corpuscular HGB Conc 31.7 g/dl (32-36); Mean Corpuscular Hemoglobin 32.5 pg (26-34); Mean Corpuscular Volume 102.5 fl (80-100); Mean Platelet Volume 10.4 fl (7.4-10.4); Monocytes Absolute Auto 1.6 K/mm3 (0.1-0.6); Monocytes Percent Auto 12.9 % (2.6-8.5); Neutrophils Absolute Auto 8.2 K/mm3 (1.3-6.7); Neutrophils Percent Auto 66.7 % (45.5-73.1); Nucleated Red Blood Cells Perc 0.2 % (0.0-0.2); Platelet Count Result 253 k/mm3 (150-375); Red Blood Count 2.77 M/mm3 (4.6-6.20); White Blood Count 12.3 K/mm3 (4.5-10.0)
[2022-03-21] MEDS: HYDROcodone/acetaminophen (*CRX) 7.5-325 MG TABLET 1 TAB PO (05:01)
[2022-03-21] MEDS: METOPROLOL TARTRATE 25 MG TABLET PO ×2 (05:02→13:42)
[2022-03-21] MEDS: AMOXICILLIN 500 MG CAPSULE PO ×2 (05:02→13:42)
[2022-03-21 05:19] LABS: Alanine Aminotransferase 13 U/L (6-50); Albumin Level 2.7 g/dL (3.5-5.1); Alkaline Phosphatase 65 U/L (38-126); Anion Gap 5 mmol/L (8-16); Aspartate Amino Transferase 41 U/L (17-59); Bilirubin,Total 1.5 mg/dL (0.2-1.3); Blood Urea Nitrogen 29 mg/dL (9-20); Calcium 8.6 mg/dL (8.4-10.2); Carbon Dioxide 26 mmol/L (22-30); Chloride 102 mmol/L (98-107); Estimated CRCL calculation 74 ml/min; Estimated Glomerular Filt Rate 55; Glucose 104 mg/dL (65-110); Magnesium 2.3 mg/dL (1.6-2.3); Potassium 4.4 mmol/L (3.4-5.0); Sodium 133 mmol/L (137-145)
[2022-03-21 07:18] LABS: INR 1.6
--- NOTE | 2022-03-21 07:55 | PM.PNCARD ---
Progress Note: A&P Assessment and Plan (1) Preop cardiovascular exam: Code(s): Z01.810 - Encounter for preprocedural cardiovascular examination Status: Acute Assessment and Plan: Risk profile: atrial fibrillation, hypertension, dyslipidemia, obesity. Functional status:<4 METs. Surgical risk: Moderate risk. Overall risk: Moderate risk. Discussed with patient that normally would undergo stress testing for CAD evaluation, but given acute hip fracture, he is willing to accept the surgical risk to fix his hip. Therefore, may proceed to noncardiac surgery which is hip surgery once INR is at acceptable level for surgery. Post op EKG shows no ischemic ST changes. (2) Syncope: Code(s): R55 - Syncope and collapse Status: Acute Assessment and Plan: Probably due to orthostatic syncope. Stopped diuretics. For edema of legs if it returns off diuretics is to wear compression stockings and keep legs elevated while seated. Decrease Midodrine 2.5 mg TID when expected to be upright throughout the day. (3) Atrial fibrillation: Qualifiers: Atrial fibrillation type: unspecified chronic Qualified Code(s): I48.20 - Chronic atrial fibrillation, unspecified Code(s): I48.91 - Unspecified atrial fibrillation Status: Acute Assessment and Plan: [id number] 2. On warfarin and INR managed by PCP. Rate controlled. INR 1.6. He received Vit K and FFP. Monitor INR. Resumed Warfarin. Goal INR 2-3. (4) Hyperlipidemia: Code(s): E78.5 - Hyperlipidemia, unspecified Status: Acute Assessment and Plan: Stable. (5) Acute on chronic kidney failure: Qualifiers: Acute renal failure type: unspecified Chronic kidney disease stage: unspecified stage Qualified Code(s): N17.9 - Acute kidney failure, unspecified; N18.9 - Chronic kidney disease, unspecified Code(s): N17.9 - Acute kidney failure, unspecified; N18.9 - Chronic kidney disease, unspecified Status: Acute Assessment and Plan: Probably related to over-diuresis as edema resolved. Stopped diuretics and had IVF to get kidney function and Cr showing significant recovery back to baseline at 1.3. (6) Hypertension: Code(s): I10 - Essential (primary) hypertension Status: Acute Assessment and Plan: Low normal. Changed Coreg to Metoprolol for rate control without significantly lowering BP. Subjective Date/time seen: 03/21/22 07:55 Reports he did well with PT yesterday with only mild dizziness. No chest pain or sob. Exam Const: General: cooperative, healthy appearing and comfortable Resp: Auscultation: clear to auscultation bilaterally, no crackles, no rales, no rhonchi and no wheezes Cardio: Jugular venous distension: no JVD Rate: regular rate Rhythm: abnormal rhythm Heart sounds: no murmurs Peripheral pulses: dorsalis pedis present GI: GI Palp: No abdominal tenderness and Yes Soft to palpation Neuro: General: oriented to person, oriented to place and oriented to time Extrem: Right lower extremity: no edema Left lower extremity: no edema Objective Data Vital Signs Vital Signs: Vital Signs - 24 hr 03/20/22 10:29 03/20/22 10:30 03/20/22 10:30 Temperature Pulse Rate Respiratory Rate Blood Pressure 107/74 129/85 103/77 Pulse Oximetry Oxygen Delivery 03/20/22 08:00 03/20/22 12:00 03/20/22 14:14 Temperature 99.0 F Pulse Rate 110 H 110 H 93 Respiratory Rate 18 Blood Pressure 115/72 Pulse Oximetry 99 Oxygen Delivery 03/20/22 14:12 03/20/22 14:15 03/20/22 16:00 Temperature Pulse Rate 93 92 Respiratory Rate Blood Pressure Pulse Oximetry 97 Oxygen Delivery Room Air 03/20/22 19:50 03/20/22 21:16 03/20/22 20:00 Temperature 97.3 F L Pulse Rate 91 91 96 Respiratory Rate 16 Blood Pressure 120/67 Pulse Oximetry 94 Oxygen Delivery 03/21/22 00:00 03/21/22 04:00 03/21/22 04:27 Temperature 97.3 F L Pu
[2022-03-21] MEDS: FERROUS SULFATE 324 MG TABLET PO (08:25)
[2022-03-21] MEDS: allopurinoL 100 MG TABLET PO (08:26)
[2022-03-21] MEDS: CYANOCOBALAMIN 1,000 MCG TABLET 1000 MCG PO (08:26)
[2022-03-21] MEDS: MIDODRINE HCL 2.5 MG TABLET PO ×2 (08:27→13:42)
--- NOTE | 2022-03-21 08:52 | PM.PNORT ---
Progress Note: A&P Assessment and Plan (1) Intertrochanteric fracture of left hip: Qualifiers: Encounter type: subsequent encounter Fracture type: closed Fracture alignment: displaced Fracture healing: with routine healing Qualified Code(s): S72.142D - Displaced intertrochanteric fracture of left femur, subsequent encounter for closed fracture with routine healing Code(s): S72.142A - Displaced intertrochanteric fracture of left femur, initial encounter for closed fracture Status: Acute Assessment and Plan: POD #4 PT/OT as tolerated, monitor BP with activity. WBAT. Walker. HIGH FALL RISK. Pain control. Ice Hip. SCDs. Incentive Spirometry. Resume home coumadin. No additional DVT prophylaxis indicated. Dispo: SNF or [facility]. (2) Foot fracture, right: Code(s): S92.901A - Unspecified fracture of right foot, initial encounter for closed fracture Status: Acute Assessment and Plan: WBAT. Post Op Shoe. (3) Ankle pain, left: Qualifiers: Chronicity: acute Qualified Code(s): M25.572 - Pain in left ankle and joints of left foot Code(s): M25.572 - Pain in left ankle and joints of left foot Status: Acute Assessment and Plan: Radiographs show lateral cortical irregularity but no complete fracture line or break. Discussed with patient. Fracture boot offered but declined by the patient as he states to difficult to ambulate with. was able to tolerate therapy this morning. We will continue to monitor. Weight-bearing as tolerated in the interim. Subjective Subjective Date/Time Seen: 03/21/22 08:52 Post Op day: 4 Principal diagnosis: left hip fracture Interval history: Pain improved today. Left ankle pain with weight bearing. Pain in the right foot when working with PT/OT. Nausea this AM. No other concerns. Exam Const: General: comfortable and no acute distress; No confusion Nutritional Appearance: obese morbidly obese Orientation/consciousness: patient oriented x3 and No confusion Limitations: no limitations HENMT: Head: normal to inspection, normocephalic and atraumatic Eyes: Conjunctivae: conjunctivae normal Sclera: sclerae normal Neck: Neck: supple and nontender Chest: Chest palpation & inspection: normal inspection of the chest Resp: Effort & Inspection: normal respiratory effort and no audible wheezes Cardio: Rate: regular rate Rhythm: regular rhythm GI: Inspection: non-distended : General: Yes deferred Skin: General skin exam: normal color and no rashes or lesions noted Wounds: wounds noted (incision left hip C/D/I ) Other: Drain in place, left hip. Sanguinous drainage. Neuro: General: patient oriented x3 and No confusion Cranial nerves: Yes Normal hearing present Extrem: General: capillary refill normal Right upper extremity: normal to inspection Left upper extremity: normal to inspection Right lower extremity: normal to inspection, hip/thigh Details: normal to inspection and normal ROM; no tenderness and no swelling, knee Details: no tenderness and no swelling, ankle Details: normal ROM (Able to flex and extend the ankle) and foot Details: vascular exam Details: dorsalis pedis pulse present and normal capillary refill, tendon exam (Moves all toes) and motor-sensory exam Details: light-touch normal Location: in all toes Left lower extremity: hip/thigh Details: tenderness Location: of the hip Location: laterally and anteriorly, swelling (thigh soft ) Location: of the hip (lateral. ), abnormal ROM (limitations with internal/external rotation and flexion/extension due to recent surgical intervention ) Details: pain with passive ROM (Full motion deferred secondary to fracture) Details: with flexion, with internal rotation and with external rotation and other (incision lateral hip c/d/i. ), knee Details: normal to inspection and normal ROM; no tenderness and no swelling, lower leg (Negative Alessandro's Sign ) Details: no edema, ankle (+a
--- NOTE | 2022-03-21 10:53 | PCOTNOTE ---
Attempted to see patient this AM for OT, patient declined. Patient reports overdoing it last night with LE exercises and not sleeping well last night, as well as c/o of dizziness and low BP. Patient educated over importance of participating in therapy for reduced dizziness and to assist with building strength, endurance, and balance to regain independence with ADLs with patient continuing to refuse treatment. Patient's BP taken, 108/67 and 113/77 supine. RN notified patient refused. Patient not seen for OT this date.
--- NOTE | 2022-03-21 12:03 | PCNWS ---
Weekly nutritional screen. Patient is tolerating current diet with improving adequate intake. No weight loss reported. No nutritional needs at this time.
--- NOTE | 2022-03-21 14:36 | PM.DS ---
DS: Admitting Diagnosis Discharge Date 03/21/2022 Admitting Diagnosis if fracture DS: Discharge Diagnosis Discharge Diagnosis (1) Orthostatic hypotension: Code(s): I95.1 - Orthostatic hypotension Status: Acute (2) Syncope: Code(s): R55 - Syncope and collapse Status: Acute (3) Intertrochanteric fracture of left hip: Qualifiers: Encounter type: subsequent encounter Fracture type: closed Fracture alignment: displaced Fracture healing: with routine healing Qualified Code(s): S72.142D - Displaced intertrochanteric fracture of left femur, subsequent encounter for closed fracture with routine healing Code(s): S72.142A - Displaced intertrochanteric fracture of left femur, initial encounter for closed fracture Status: Acute (4) Foot fracture, right: Code(s): S92.901A - Unspecified fracture of right foot, initial encounter for closed fracture Status: Acute (5) Acute on chronic kidney failure: Qualifiers: Acute renal failure type: unspecified Chronic kidney disease stage: unspecified stage Qualified Code(s): N17.9 - Acute kidney failure, unspecified; N18.9 - Chronic kidney disease, unspecified Code(s): N17.9 - Acute kidney failure, unspecified; N18.9 - Chronic kidney disease, unspecified Status: Acute (6) Atrial fibrillation: Qualifiers: Atrial fibrillation type: unspecified chronic Qualified Code(s): I48.20 - Chronic atrial fibrillation, unspecified Code(s): I48.91 - Unspecified atrial fibrillation Status: Acute (7) Chronic anticoagulation: Code(s): Z79.01 - MCFP (current) use of anticoagulants Status: Acute (8) Electrolyte abnormality: Code(s): E87.8 - Other disorders of electrolyte and fluid balance, not elsewhere classified Status: Acute (9) Benign prostatic hyperplasia: Code(s): N40.0 - Benign prostatic hyperplasia without lower urinary tract symptoms Status: Acute (10) Abnormal urinalysis: Code(s): R82.90 - Unspecified abnormal findings in urine Status: Acute (11) Anemia: Code(s): D64.9 - Anemia, unspecified Status: Acute DS: Summary Hospital Course Hospital Course: # orthostatic hypotension BP dropped when patient was up to the side of the bed and with standing. He was symptomatic.? Could be orthostatic hypotension possibly related to dehydration.? Consider also vasovagal related to pain.? He has been receiving fluids and is fluid positive although urine output not accurate.? His Coreg was changed to metoprolol.? His Lasix, lisinopril and hydrochlorothiazide remain on hold which was admitted discontinued discharge was.? Sepsis seems unlikely.? Could be related to prolonged bedrest.? Flomax also has been known to cause orthostatic hypotension to this could be the etiology as well.? Hold Flomax.? Continued IV fluids with subsequent improvement. Midodrine was also started. TSH was normal and cortisol level is appropriate at 14. Cardiology was also on board # syncope collapse prior to admission leading to a fracture as well as during the hospital. To orthostasis. No telemetry evidence of any arrhythmias.Echo July 2021 EF 55-60% with normal diastolic fxn. Carotid Dopplers showing <50% stenosis in the bilateral carotid arteries. Patient has refused brain CT due to claustrophobia. Suspect (near) syncope related to HoTN from dehydration; Lasix stopped. Also consider symptoms related to the Flomax. As above. Follow closely once he is ambulatory. # Fall with left hip intertrochanteric fracture. Sustained in fall following (near)syncopal episode. X-ray showing displaced left femoral IT fracture. INR was 2.3. Warfarin held. Vit K given. Analgesics available as needed. INR better after FFP and repeat Vit K. Patient underwent left hip trochanteric nail placement 03/17. PT/OT started. May have trouble ambulating with the HoTH and the right metatarsal frac
--- NOTE | 2022-03-21 15:38 | PC.NURSE ---
Pt resting in bed. Pt tele running tachy occasionally. Pts heart rate is elevated with movement. Pt was seen by PT and OT today. Pt to be discharged to [facility]. Pt has had no complaints of pain to nurse but has complained of pain to both PT and OT. Will continue to monitor pt.
[2022-03-21 16:18] LABS: EDCOVIDSCREEN Negative (Negative)
[2022-03-21 20:55] LABS: Albumin 2.6 g/dL (3.8-4.8); Alpha 1 Globulin 0.5 g/dL (0.2-0.3); Alpha 2 Globulin 0.6 g/dL (0.5-0.9); Beta 1 Globulin 0.4 g/dL (0.4-0.6); Gamma Globulin 0.8 g/dL (0.8-1.7); Protein, Total 5.4 g/dL (6.1-8.1)
[2022-03-24 02:00] LABS: Total Protein/Creatinine Ratio 278 mg/g creat (22-128)
== END 2022-03-21 17:40 | DRG 481 ==
LOC: ANHED 14:28 → ANH3MED 17:23
PROVIDERS: Internal Medicine; Internal Medicine Cardiovascular Disease; Orthopaedic Surgery; Physician Assistant; Admitting Provider Student in an Organized Health Care Education/Training Program; Emergency Provider Emergency Medicine; PCP Emergency Medicine; Visit Provider Internal Medicine
PROC: 0QS736Z Reposition Left Upper Femur with Intramedullary Internal Fixation Device, Percutaneous Approach (ICD-10-PCS; CPT 27245; principal; 2022-03-17 11:00)
DX: S72.142A Displaced intertrochanteric fracture of left femur, initial encounter for closed fracture (principal); I48.20 Chronic atrial fibrillation, unspecified; N17.9 Acute kidney failure, unspecified; E87.1 Hypo-osmolality and hyponatremia; Z68.42 Body mass index [BMI] 45.0-49.9, adult; E87.6 Hypokalemia; I12.9 Hypertensive chronic kidney disease with stage 1 through stage 4 chronic kidney disease, or unspecified chronic kidney disease; N18.30 Chronic kidney disease, stage 3 unspecified; S92.321A Displaced fracture of second metatarsal bone, right foot, initial encounter for closed fracture; S92.331A Displaced fracture of third metatarsal bone, right foot, initial encounter for closed fracture; S92.341A Displaced fracture of fourth metatarsal bone, right foot, initial encounter for closed fracture; M25.572 Pain in left ankle and joints of left foot; E78.5 Hyperlipidemia, unspecified; R42 Dizziness and giddiness; N40.0 Benign prostatic hyperplasia without lower urinary tract symptoms; W19.XXXA Unspecified fall, initial encounter; E66.01 Morbid (severe) obesity due to excess calories; I65.23 Occlusion and stenosis of bilateral carotid arteries; I95.1 Orthostatic hypotension; D64.9 Anemia, unspecified; Z20.822 Contact with and (suspected) exposure to COVID-19; Z91.81 History of falling; Z87.891 Personal history of nicotine dependence; Z79.01 Long term (current) use of anticoagulants
CPT/HCPCS: 36415; 36430; 71045; 73502; 73600; 73620; 76775; 80048; 80053; 80069; 81001; 82533; 82550; 82570; 82607; 82728; 82746; 83036; 83540; 83550; 83605; 83735; 84100; 84155; 84156; 84165; 84166; 84300; 84443; 85025; 85027; 85610; 85999; 86850; 86900; 86901; 87077; 87086; 87088; 87186; 87426; 93005; 93880; 96361; 96374; 96375; 96376; 97110; 97161; 97167; 97530; 97535; 99199; 99285; A9270; C1713; C9803; G0378; J0131; J0330; J0690; J1170; J1885; J2250; J2370; J2405; J2704; J2710; J3010; J3420; J7030; J7050; J7120; P9017

== ENCOUNTER 2022-05-27 12:58 | Inpatient (IN) | payer OTHER, SELFPAY ==
[2022-05-27] VITALS (33 sets, daily range): BP systolic 97–164; BP diastolic 60–100; PULSE 51–121; RESP 7–35; TEMP 36.1; O2SAT 84–100; BMI 39.1
--- NOTE | ~2022-05-27 | XR_ITS ---
EXAM: XR abdomen/kub 1V DATE: 05/28/2022 17:48 HISTORY: chronic uti. PT HAS NO ABDOMEN PAIN/COMPLAINTS . COMPARISON: None available. FINDINGS: Clear lung bases. Rectum is dilated to 6.1 cm by formed stool. No additional large bowel d ilation. Paucity of small bowel gas limits interpretation. Left hip fixation hardware. No organomegal y. Punctate calcifications overlie the left renal shadow, which may represent nephroliths. Bridging o steophytes and syndesmophytes with bilateral SI joint fusion, may represent ankylosing spondylitis. IMPRESSION: Possible fecal impaction. No large bowel obstruction. Exam limited with regard to the sma ll bowel. Reviewed, dictated and finalized at location K. IMPRESSION: Possible fecal impaction. No large bowel obstruction. Exam limited with regard to the small bowel.
--- NOTE | ~2022-05-27 | US_ITS ---
EXAMINATION: US venous doppler [facility] DATE: 05/28/2022 13:20 INDICATION: Lower limb edema. TECHNIQUE: Grayscale ultrasound images without and with compression and Doppler ultrasound images of the bilateral lower extremity veins were obtained. COMPARISON: Ultrasound 07/14/2008 FINDINGS: The visualized portions of right common femoral vein, profunda (deep) femoral vein, femoral vein, pop liteal vein, peroneal veins, posterior tibial veins, and greater saphenous vein outflow are patent. The visualized portions of left common femoral vein, profunda femoral vein, femoral vein, popliteal v ein, peroneal veins, posterior tibial veins, and greater saphenous vein outflow are patent. IMPRESSION: 1. No deep venous thrombosis. Reviewed, dictated and finalized at location A.
--- NOTE | ~2022-05-27 | XR_ITS ---
EXAMINATION: XR chest 1V Exam Date/Time: 05/27/2022 14:22 CDT HISTORY: weakness diziness Comparison: 03/14/2022. RESULT: Lines, tubes, and devices: None. Lungs and pleura: Senescent changes, otherwise clear. Cardiomediastinal silhouette: Stable. Other: No acute osseous or upper abdominal finding. IMPRESSION: No acute cardiopulmonary process. Reviewed, dictated and finalized at location K.
--- NOTE | 2022-05-27 13:31 | ED.WEAKNESS ---
HPI - Weakness General Chief complaint: Weakness Stated complaint: dizzy Time Seen by Provider: 05/27/22 13:02 History of Present Illness HPI Narrative: Pt was in rehab fo sometime after leg fracture. Pt has been at home for almost a month and has been getting weaker and is not able to get up from chair and is not able to walk. Pt says there was some confusion over his medications after discharge from rehab but he thinks he has those sorted out now but is unsure if that led to his condition. Pt says he was confused this morning. Pt has intermittent vertigo symptoms for over a year now which seem a little better since his meds were adjusted. Related Data Allergies Allergy/AdvReac Type Severity Reaction Status Date / Time No Known Allergies Allergy Mild Verified 03/17/22 10:19 Review of Systems Review of Systems: All systems reviewed & are unremarkable except as noted in HPI and below Constitutional: Constitutional: Reports weakness Cardiovascular: Cardiovascular: Reports no additional cardiovascular complaints Respiratory: Respiratory: Reports no additional respiratory complaints Gastrointestinal: Gastrointestinal: Reports no additional gastrointestinal complaints Neurologic: Reports confusion, Reports vertigo and Reports weakness [facility] Past Medical History Medical History (Updated 05/27/22 @ 22:42 by Lilian Bynum NP) Afib Ankle pain, left Atrial fibrillation Benign prostatic hyperplasia BPH (benign prostatic hyperplasia) Chronic anticoagulation Chronic kidney disease Gout HLD (hyperlipidemia) Hyperlipidemia Hypothyroidism Hypothyroidism (acquired) Surgical History Surgical History History of tonsillectomy History of transurethral resection of prostate S/P ORIF (open reduction internal fixation) fracture left femur Family History Family History Mother Family history of cardiovascular disease Father Family history of heart disease in male family member before age 55, Onset Age: 43 Family history of cardiovascular disease Social History Social History (Updated 05/27/22 @ 22:35 by Lilian Bynum NP) Social History: The patient is and has 1 son. 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 Surrogate medical decision maker: Manish Quigley, son. His grandson lives with him. The patient stated that he was a former smoker. Occasionally uses alcohol. Occasional marijuana but no illicit drugs. Code status: Full code. Smoking packs per day: 2 Smoking cigarettes per day: 40.0 Years smoked: 10 Smoking pack-years: 20.00 Smoking status: Former smoker Second hand tobacco smoke exposure: Yes Alcohol intake: former Substance use: current Substance use type: marijuana Additional living arrangements comments: Lives in his own home in [place]. 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 Spiritual care concerns: No Exam Const: General: healthy appearing and no acute distress Nutritional Appearance: obese Orientation/consciousness: patient oriented x3 Limitations: no limitations Other: no signs of confusion or altered mental status on exam HENMT: Head: normal to inspection Mouth: Yes Normal oral and palatal mucosa present Eyes: Pupils: Equal, round and reactive pupils present EOM: EOMs intact bilaterally Neck: Neck: normal visual inspection, no lymphadenopathy and no meningeal signs Chest: Chest palpation & inspection: normal inspection of the chest Resp: Effort & Inspection: normal respiratory effort Auscultation: clear to auscultation bilaterally Cardio: Rate: regular rate Rhythm: regular rhythm GI: GI Palp: Yes Soft to palpation Auscultation: normal bowel sounds Skin: General skin exam: normal color Rashes: no rashes Neuro: General: patient oriented x3, moves all extremities and no focal motor deficits C
[2022-05-27 14:03] LABS: Basophils Absolute Auto 0.1 K/mm3 (0.0-0.1); Basophils Percent Auto 0.7 % (0.2-1.2); Eosinophils Absolute Auto 0.3 K/mm3 (0-0.3); Eosinophils Percent Auto 3.2 % (0-4.4); Hematocrit 48.1 % (42.0-52.0); Hemoglobin 15.6 g/dL (14.0-18.0); Immature Granulocyte Absolute 0.02 K/mm3 (0.00-0.031); Immature Granulocyte Percent A 0.2 % (0-0.5); Lymphocytes Absolute Auto 1.59 K/mm3 (0.9-3.2); Lymphocytes Percent Auto 18.4 % (18.3-44.2); Mean Corpuscular HGB Conc 32.4 g/dl (32-36); Mean Corpuscular Hemoglobin 31.6 pg (26-34); Mean Corpuscular Volume 97.6 fl (80-100); Mean Platelet Volume 11.1 fl (7.4-10.4); Monocytes Absolute Auto 0.6 K/mm3 (0.1-0.6); Neutrophils Absolute Auto 6.1 K/mm3 (1.3-6.7); Neutrophils Percent Auto 70.5 % (45.5-73.1); Platelet Count Result 228 k/mm3 (150-375); Red Blood Count 4.93 M/mm3 (4.6-6.20); Red Cell Distribution Width 14.4 % (11.5-14.5); White Blood Count 8.7 K/mm3 (4.5-10.0)
[2022-05-27 14:12] LABS: Lactic Acid Reflex 1.8 mmol/L (0.7-2.0)
[2022-05-27 14:14] LABS: INR 2.3; Partial Thromboplastin Time 35.6 SECONDS (22.3-36.8); Prothrombin Time 24.3 Seconds (11.1-14.7)
[2022-05-27 14:15] LABS: Alanine Aminotransferase 36 U/L (6-50); Alkaline Phosphatase 91 U/L (38-126); Anion Gap 14 mmol/L (8-16); Aspartate Amino Transferase 37 U/L (17-59); Bilirubin,Total 0.9 mg/dL (0.2-1.3); Blood Urea Nitrogen 32 mg/dL (9-20); Calcium 10.5 mg/dL (8.4-10.2); Carbon Dioxide 31 mmol/L (22-30); Chloride 92 mmol/L (98-107); Estimated CRCL calculation 70 ml/min; Estimated Glomerular Filt Rate 55; Glucose 126 mg/dL (65-110); Potassium 2.6 mmol/L (3.4-5.0); Sodium 137 mmol/L (137-145)
--- NOTE | 2022-05-27 14:36 | ECG_ITS ---
Measurements Intervals [place] Rate: 102 P: [place]: 0 QRS: 114 QRSD: 121 T: -12 QT: 360 QTc: 469 Interpretive Statements ATRIAL FIBRILLATION WITH RAPID VENTRICULAR RESPONSE RIGHT AXIS DEVIATION INTRAVENTRICULAR CONDUCTION DELAY BORDERLINE ST-T WAVE ABNORMALITY- ANT/INF LEADS BASELINE ARTIFACT- I, II, III, AVR, AVL, AVF, V1 ABNORMAL ECG COMPARED TO ECG 03/18/2022 09:07:[address]-T WAVE ABNORMALITY- ANT/INF LEADS NOW PRESENT Electronically Signed On 05-27-2022 15:12:50 CDT by Neil Briceno D.O.
--- NOTE | 2022-05-27 15:00 | PC.NURSE ---
per ct scan pt refused testing due to clausterphobia
[2022-05-27] MEDS: KCL 20 MEQ/SW 100 ML 100 ML 50 MEQ IVPB (15:41)
[2022-05-27] MEDS: SODIUM CHLORIDE 0.9% IV 500 ML 150 ML (15:42)
[2022-05-27] MEDS: POTASSIUM CHLORIDE 20 MEQ TABLET 40 MEQ PO (15:42)
[2022-05-27 16:41] LABS: Appearance Urine Cloudy (Clear); Bilirubin Urine 1+ (Negative); Blood Urine 2+ (Negative); Color Urine Yellow (Yellow); Glucose Urine UA Negative (Negative); Ketones Urine Negative (Negative); Leukocyte Esterase Ur 3+ LEU/UL (Negative); Nitrate Urine Negative (Negative); Protein Urine 1+ mg/dL (Negative); Urobilinogen Urine 0.2 mg/dL (<2.0); pH Urine 5.5 (5.0-9.0)
[2022-05-27 16:47] LABS: Bacteria Urine 4+ /hpf; Mucus Urine Heavy /lpf; Squamous Epithelial Cell Urine Occasional /hpf (Few); WBC Urine >75 /hpf
[2022-05-27 16:51] LABS: Add Urine Microscopic? YES
[2022-05-27] MEDS: SODIUM CHLORIDE 0.9% IV 500 ML 200 ML (17:13)
--- NOTE | 2022-05-27 19:40 | PC.NURSE ---
Pt had dinner tray at bedside upon this RN entering room. Pt states that he does not want that food. Offered pt other options including sandwich. Pt declined at this time.
--- NOTE | 2022-05-27 20:25 | PM.IMHP ---
H&P: HPI History of Present Illness Date/Time: 05/27/22 20:25 Chief Complaint: Weakness Narrative: This is a 62-year-old man who had a left femur fracture and had gone to rehab until about a month ago. The patient has been at home for almost a month now and has been getting weaker and is not able to get up from his chair any sent able to walk. The patient also stated that he he was confused over his medications after discharge. Patient stated he was going to his doctor to review his medications. The patient stated that he was confused this morning the patient does a long history of her to go for over a year now but seems somewhat better since his medications were adjusted. Patient's potassium was found to be 2.6. Glucose 126. Calcium 10.5. The patient also appears to have a UTI. The patient was started on Rocephin. He was given potassium IV as well as orally. He was also given IV fluids. The patient is being admitted to observation status on the date of service of 05/27/2022. Review of Systems Review of Systems: See HPI. All systems reviewed & are unremarkable except as noted in HPI and below Constitutional: Constitutional: Reports as per HPI and Reports no additional constitutional complaints Eyes: Eyes: Reports as per HPI and Reports no additional eye complaints ENT: Reports system reviewed and no additional complaints, except as documented and Reports Normal hearing present Cardiovascular: Cardiovascular: Reports no additional cardiovascular complaints Respiratory: Respiratory: Reports no additional respiratory complaints and Reports no additional respiratory complaints Gastrointestinal: Gastrointestinal: Reports as per HPI and Reports no additional gastrointestinal complaints Musculoskeletal: Musculoskeletal: Reports no additional musculoskeletal complaints Integumentary/Breasts: Skin/Breast: Reports system reviewed and no additional complaints, except as docu and Reports as per HPI Neurologic: Reports system reviewed and no additional complaints, except as documented, Reports as per HPI and Reports Normal hearing present Psychiatric: Psychiatric: Reports no additional psychiatric complaints and Reports as per HPI Endocrine: Endocrine: Reports no additional endocrine complaints Hematologic/Lymphatic: Hematologic/Lymphatic: Reports no additional hematologic/lymphatic complaints Allergic/Immunologic: Allergic/Immunologic: Reports no additional allergic/immunologic complaints [facility] Past Medical History Medical History (Updated 05/27/22 @ 22:42 by Lilian Bynum NP) Afib Ankle pain, left Atrial fibrillation Benign prostatic hyperplasia BPH (benign prostatic hyperplasia) Chronic anticoagulation Chronic kidney disease Gout HLD (hyperlipidemia) Hyperlipidemia Hypothyroidism Hypothyroidism (acquired) Surgical History Surgical History History of tonsillectomy History of transurethral resection of prostate S/P ORIF (open reduction internal fixation) fracture left femur Family History Family History Mother Family history of cardiovascular disease Father Family history of heart disease in male family member before age 55, Onset Age: 43 Family history of cardiovascular disease Social History Social History (Updated 05/27/22 @ 22:35 by Lilian Bynum NP) Social History: The patient is and has 1 son. 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 Surrogate medical decision maker: Manish Quigley, son. His grandson lives with him. The patient stated that he was a former smoker. Occasionally uses alcohol. Occasional marijuana but no illicit drugs. Code status: Full code. Smoking packs per day: 2 Smoking cigarettes per day: 40.0 Years smoked: 10 Smoking pack-years: 20.00 Smoking status: Former smoker Second hand tobacco smoke exposure: Yes Alcohol intake: fo
--- NOTE | 2022-05-27 23:54 | ADMGEN ---
This patient, Car Quigley, was admitted to Medical Room 259-. Patient/family oriented to hospital policies and general routines including ID bracelet, bed and alarms, visiting hours, pain management, procedures, bathroom and other care routines, personal items, smoking policy, room service/diet, and visiting hours. Information on how to activate the Rapid Response Team has been discussed. Patient/Family are encouraged to report perceived risks to care and to ask questions if they do not understand what they are told or what they should do.
[2022-05-28] VITALS (15 sets, daily range): BP systolic 109–133; BP diastolic 53–90; PULSE 79–107; RESP 12–20; TEMP 35.8–36.4; O2SAT 91–100
--- NOTE | 2022-05-28 | ECHO_ITS ---
Patient Info Name: Car Quigley Age: 71 years : 1950 Gender: Male Ht: 72 in Wt: 288 lbs BSA: 2.63 m2 HR: 92 bpm BP: 112 / 77 mmHg Technical Quality: Poor Exam Date: 05/28/2022 10:03 AM Exam Location: [facility] Pulmonary Exam Room: 259 Patient Status: Outpatient Admit Date: 05/27/2022 Staff Ordering Physician: Lizandro Tobin Tradeshow Worker: Florida Grady RDCS Attending Provider: Milton Hoffman MD Referring Physician: Mahad FRANCISCO; Exam Type: CA echo dop color flow w con Study Info Indications - CHF FLUID STATUS ORTHOSTATIC HYPOTENSION Complete two-dimensional, color flow and Doppler transthoracic echocardiogram is performed with contrast to opacify the left ventricle and to improve the deliniation of the left ventricle endocardial borders. Contrast/Agitated Saline Contrast/Ag. Saline: Definity Amount: 2.00 ml Administered By: [place] Grady [facility] Existing IV Access: Yes IV Access Condition: patent with no signs of infiltration Reason for Poor Study: patient body habitus Summary 1. Left ventricular chamber dimension is mildly enlarged. 2. Definity contrast administered improves wall motion interpretation. 3. Left ventricular systolic function is moderately globally reduced, estimated at 40-45%. 4. The left ventricular diastolic function is normal. 5. E/e' 8 is minimally elevated. 6. Left atrial chamber dimension is severely enlarged. 7. There is trace mitral valve regurgitation. 8. There is trace tricuspid valve regurgitation. 9. No pulmonary hypertension, estimated pulmonary arterial systolic pressure is 29 mmHg. Left Ventricle E/e' 8 is minimally elevated. Definity contrast administered improves wall motion interpretation. Left ventricular systolic function is moderately globally reduced, estimated at 40-45%. Left ventricular chamber dimension is mildly enlarged. The left ventricular diastolic function is normal. Right Ventricle Right ventricular chamber dimension is normal. Right ventricular systolic function is normal. Left Atria Left atrial chamber dimension is severely enlarged. Right Atria Right atrial chamber dimension is moderately enlarged. Aortic Valve The aortic valve is trileaflet. There is no aortic valve stenosis. There is no aortic valve regurgitation. Pulmonic Valve There is no pulmonic regurgitation. Mitral Valve There is no mitral valve stenosis. There is trace mitral valve regurgitation. Tricuspid Valve There is trace tricuspid valve regurgitation. No pulmonary hypertension, estimated pulmonary arterial systolic pressure is 29 mmHg. Pericardium/Pleural There is no pericardial effusion. Inferior Vena Cava Normal inferior vena cava with >50% collapse upon inspiration consistent with normal right atrial pressure, 5 mmHg. Aorta The aortic root size at the sinus of Valsalva is normal. Left Ventricular Outflow Tract Name Value Normal LVOT 2D LVOT Diameter 2.16 cm LVOT Doppler LVOT Peak Gradient 3 mmHg LVOT Mean Gradient
[2022-05-28 02:00] LABS: Anion Gap 11 mmol/L (8-16); Blood Urea Nitrogen 31 mg/dL (9-20); Calcium 10.3 mg/dL (8.4-10.2); Carbon Dioxide 30 mmol/L (22-30); Chloride 95 mmol/L (98-107); Estimated CRCL calculation 67 ml/min; Estimated Glomerular Filt Rate 55; Glucose 115 mg/dL (65-110); Potassium 3.1 mmol/L (3.4-5.0); Sodium 136 mmol/L (137-145)
[2022-05-28] MEDS: traMADol HCL (*CRX) 50 MG TABLET PO ×2 (05:19→18:14)
[2022-05-28 05:40] LABS: Basophils Percent Auto 0.4 % (0.2-1.2); Eosinophils Absolute Auto 0.3 K/mm3 (0-0.3); Eosinophils Percent Auto 3.8 % (0-4.4); Hematocrit 45.8 % (42.0-52.0); Hemoglobin 15.1 g/dL (14.0-18.0); Immature Granulocyte Absolute 0.04 K/mm3 (0.00-0.031); Immature Granulocyte Percent A 0.5 % (0-0.5); Lymphocytes Absolute Auto 1.88 K/mm3 (0.9-3.2); Mean Platelet Volume 11.2 fl (7.4-10.4); Monocytes Absolute Auto 0.9 K/mm3 (0.1-0.6); Neutrophils Percent Auto 61.3 % (45.5-73.1); Platelet Count Result 243 k/mm3 (150-375); Red Blood Count 4.72 M/mm3 (4.6-6.20); Red Cell Distribution Width 14.4 % (11.5-14.5); White Blood Count 8.2 K/mm3 (4.5-10.0)
[2022-05-28 05:52] LABS: INR 2.3; Prothrombin Time 24.8 Seconds (11.1-14.7)
[2022-05-28 05:56] LABS: Alanine Aminotransferase 36 U/L (6-50); Alkaline Phosphatase 91 U/L (38-126); Anion Gap 11 mmol/L (8-16); Aspartate Amino Transferase 36 U/L (17-59); Bilirubin,Total 0.9 mg/dL (0.2-1.3); Blood Urea Nitrogen 30 mg/dL (9-20); CRP 1.7 mg/dL (<1.0); Calcium 10.5 mg/dL (8.4-10.2); Carbon Dioxide 31 mmol/L (22-30); Chloride 95 mmol/L (98-107); Estimated CRCL calculation 73 ml/min; Estimated Glomerular Filt Rate 60; Glucose 109 mg/dL (65-110); Lactate Dehydrogenase 141 U/L (120-246); Magnesium 1.7 mg/dL (1.6-2.3); Potassium 3.1 mmol/L (3.4-5.0); Sodium 137 mmol/L (137-145)
[2022-05-28] MEDS: SENNA/DOCUSATE SODIUM TABLET 2 TAB PO ×2 (08:29→18:13)
[2022-05-28] MEDS: FERROUS SULFATE 324 MG TABLET PO ×2 (08:29→18:13)
[2022-05-28] MEDS: METOPROLOL TARTRATE 25 MG TABLET PO ×2 (08:29→21:42)
[2022-05-28] MEDS: allopurinoL 100 MG TABLET PO (08:29)
[2022-05-28] MEDS: CYANOCOBALAMIN 1,000 MCG TABLET 1000 MCG PO (08:29)
[2022-05-28] MEDS: MIDODRINE HCL 2.5 MG TABLET PO ×3 (08:30→18:14)
[2022-05-28] MEDS: MAGNESIUM SULF 2 GM/WATER 50ML 2 GM/50 ML BAG IVPB (08:30)
[2022-05-28] MEDS: TAMSULOSIN HCL 0.4 MG CAPSULE PO (08:30)
[2022-05-28] MEDS: POTASSIUM CHLORIDE 20 MEQ TABLET 60 MEQ PO (08:30)
--- NOTE | 2022-05-28 08:30 | P.PNIM_ITS ---
Progress Note: A&P Assessment and Plan (1) Acute hypokalemia: Code(s): E87.6 - Hypokalemia Status: Acute Assessment and Plan: * K in the ED 2.6 * Replacement given * Currently 3.1 * 60mEq PO once * Recheck this afternoon * Mag 1.7, 2gm replacement ordered (2) Acute UTI: Code(s): N39.0 - Urinary tract infection, site not specified Status: Acute Assessment and Plan: * UA does appear to be infectious cloudy, 3+ leukocyte esterase, >75 WBC, 4+ bacteria, heavy mucous * Continue ceftriaxone, add vanco as recent cultures found entrococcus * WBC 8.2 * Trend urine output * Wonder if this is related to retention * Bladder scan PRN (3) BPH (benign prostatic hyperplasia): Code(s): N40.0 - Benign prostatic hyperplasia without lower urinary tract symptoms Status: Acute Assessment and Plan: * Could be the reason for the frequent UTIs * PRV and bladder scans ordered * Trend urine output * Continue tamsulosin * Urinary catheter ordered * Urology consulted (4) Anemia: Code(s): D64.9 - Anemia, unspecified Status: Acute Assessment and Plan: * H/H is 15.1/45.8 * Continue home ferrous sulfate * Appears to be stable at this time * Continue to trend H/H * adjust therapy as indicated (5) CHF (congestive heart failure): Qualifiers: Heart failure chronicity: chronic Heart failure type: unspecified Qualified Code(s): I50.9 - Heart failure, unspecified Code(s): I50.9 - Heart failure, unspecified Status: Acute Assessment and Plan: * Seems to have chronic diastolic heart failure appears not in exacerbation * Trend urine output * Daily weights * BNP 391 * 3+ pitting edema on the right leg and 1+ on the left leg * Echo ordered (6) Hyperlipidemia: Code(s): E78.5 - Hyperlipidemia, unspecified Status: Acute Assessment and Plan: * continue with heart healthy diet (7) Hypertension: Code(s): I10 - Essential (primary) hypertension Status: Acute Assessment and Plan: * BP is 133/90 * Seems to have some hypotension as well * Hold HCTZ, decrease metoprolol to twice a day * Trend BP * Adjust therapy as indicate Time Spent With Patient Time with patient: Greater than 35 minutes Subjective Date/time seen: 05/28/22829 Interval history: 05/28/22829 Patient was lying in bed with blankets over his head. Patient stated that he was tired today. He currently denies any chest pain, shortness a breath, nausea, vomiting, diarrhea or constipation. He stated that he has been having a rough couple weeks. He stated that the weakness has gotten worse however when he left rehab he was able to walk 50-60 feet. He also stated that since the surgery his left leg has been larger than the right leg. However the right leg upon exam was [place] than the left leg. Patient also stated that he has had a lack of appetite and just does not feel like eating. He also stated that he does not feel like he fully empties when he urinates and that he has been having some burning and pain with urination as well. Post residual void has been ordered. PVR did show 170ml. Urinary catheter ordered, will ask urology to come see the patient
--- NOTE | 2022-05-28 08:30 | PM.IMPN ---
Progress Note: A&P Assessment and Plan (1) Acute hypokalemia: Code(s): E87.6 - Hypokalemia Status: Acute Assessment and Plan: K in the ED 2.6 Replacement given Currently 3.1 60mEq PO once Recheck this afternoon Mag 1.7, 2gm replacement ordered (2) Acute UTI: Code(s): N39.0 - Urinary tract infection, site not specified Status: Acute Assessment and Plan: UA does appear to be infectious cloudy, 3+ leukocyte esterase, >75 WBC, 4+ bacteria, heavy mucous Continue ceftriaxone, add vanco as recent cultures found entrococcus WBC 8.2 Trend urine output Wonder if this is related to retention Bladder scan PRN (3) BPH (benign prostatic hyperplasia): Code(s): N40.0 - Benign prostatic hyperplasia without lower urinary tract symptoms Status: Acute Assessment and Plan: Could be the reason for the frequent UTIs PRV and bladder scans ordered Trend urine output Continue tamsulosin Urinary catheter ordered Urology consulted (4) Anemia: Code(s): D64.9 - Anemia, unspecified Status: Acute Assessment and Plan: H/H is 15.1/45.8 Continue home ferrous sulfate Appears to be stable at this time Continue to trend H/H adjust therapy as indicated (5) CHF (congestive heart failure): Qualifiers: Heart failure chronicity: chronic Heart failure type: unspecified Qualified Code(s): I50.9 - Heart failure, unspecified Code(s): I50.9 - Heart failure, unspecified Status: Acute Assessment and Plan: Seems to have chronic diastolic heart failure appears not in exacerbation Trend urine output Daily weights BNP 391 3+ pitting edema on the right leg and 1+ on the left leg Echo ordered (6) Hyperlipidemia: Code(s): E78.5 - Hyperlipidemia, unspecified Status: Acute Assessment and Plan: continue with heart healthy diet (7) Hypertension: Code(s): I10 - Essential (primary) hypertension Status: Acute Assessment and Plan: BP is 133/90 Seems to have some hypotension as well Hold HCTZ, decrease metoprolol to twice a day Trend BP Adjust therapy as indicate Time Spent With Patient Time with patient: Greater than 35 minutes Subjective Date/time seen: 05/28/22829 Interval history: 05/28/22829 Patient was lying in bed with blankets over his head. Patient stated that he was tired today. He currently denies any chest pain, shortness a breath, nausea, vomiting, diarrhea or constipation. He stated that he has been having a rough couple weeks. He stated that the weakness has gotten worse however when he left rehab he was able to walk 50-60 feet. He also stated that since the surgery his left leg has been larger than the right leg. However the right leg upon exam was [place] than the left leg. Patient also stated that he has had a lack of appetite and just does not feel like eating. He also stated that he does not feel like he fully empties when he urinates and that he has been having some burning and pain with urination as well. Post residual void has been ordered. PVR did show 170ml. Urinary catheter ordered, will ask urology to come see the patient since he is having frequent UTIs. 05/27/22? 20:25 This is a 62-year-old man who had a left femur fracture and had gone to rehab until about a month ago.? The patient has been at home for almost a month now and has been getting weaker and is not able to get up from his chair any sent able to walk.? The patient also stated that he he was confused over his medications after discharge.? Patient stated he was going to his doctor to review his medications.? The patient stated that he was confused this morning the patient does a long history of her to go for over a year now but seems somewhat better since his medications were ad
[2022-05-28 08:39] LABS: Estimated CRCL calculation 73 ml/min; Estimated Glomerular Filt Rate 60
[2022-05-28 08:46] LABS: NT Pro B Type Natriuretic Pept 391 pg/mL (5-100)
[2022-05-28 09:30] LABS: Total Triiodothyronine (T3) 1.14 NG/ML (0.97-1.69)
[2022-05-28] MEDS: PERFLUTREN LIPID MICROSPHERES 1.5 ML VIAL DILUTED TO 10 ML TOTAL VOLUME IV PUSH (10:00)
--- NOTE | 2022-05-28 11:59 | PCNSR ---
On 05/28/22, the student,Jostin Peters, provided care and [email or web address]. I have reviewed the student's documentation and agree with the findings.
--- NOTE | 2022-05-28 15:14 | PCOTNOTE ---
Attempted to see pt. for occupational therapy evaluation. Pt. refused at this time, stating his legs were too tired . Nursing aware. Following.
--- NOTE | 2022-05-28 16:19 | WPDURCON ---
Assessment and Plan Assessment and plan (1) BPH (benign prostatic hyperplasia): Code(s): N40.0 - Benign prostatic hyperplasia without lower urinary tract symptoms Status: Acute Assessment and Plan: Continue Tamsulosin, ok to bladder scan PRN if he is having difficulty. PVR was 170cc, anything less than 350cc and he is comfortable no catheter necessary. No PSA needed at this time d/t infection as it would be falsely elevated, will check in office as outpatient when he is infection free. (2) Acute UTI: Code(s): N39.0 - Urinary tract infection, site not specified Status: Acute Assessment and Plan: Continue IV antibiotics, tailor to culture results. MATT from 03/17 was normal, I recommend a CT to rule out sources of infection. If it is normal, a cystoscopy in the office as an outpatient is appropriate for follow up. Urology Consult Note HPI Date Seen: 05/28/22 Time Seen: 16:20 Requesting Physician: Milton Hoffman MD Primary Care Provider: Mandeep Carson MD Consult Narrative Reason for consult: Chronic UTI Narrative: Car Quigley is a 71 year old male who presented to the ER with weakness s/p femoral fracture and rehab as well as confusion on 05/27/22. We were consulted d/t chronic UTI. He had a UTI on 03/17/22 growing Enterococcus and was treated with culture sensitive antibiotics, and had a MATT on 03/15/22 which was normal at that time. His WBC is 8.2, creatinine 1.20, UA is suggestive of a UTI now and cultures are pending, both blood and urine. He is afebrile, but c/o dysuria, frequency and urgency to urinate. He also states he is straining a bit to empty, but his bladder scan PVR was 170cc. He states when he is not infected he has no urologic concerns, no nocturia, hesitancy, straining, frequency or urgency. His home medications include Tamsulosin but he states he has never been diagnosed with BPH. Review of Systems Constitutional: Constitutional: Reports fatigue Cardiovascular: Cardiovascular: Denies chest pain Respiratory: Respiratory: Reports no additional respiratory complaints Gastrointestinal: Gastrointestinal: Denies abdominal pain, Denies nausea and Denies vomiting Genitourinary: Genitourinary: Denies hematuria, Reports dysuria, Denies flank pain, Reports urinary frequency, Reports urinary hesitancy and Reports urinary urgency [facility] Past Medical History Medical History Afib Ankle pain, left Atrial fibrillation Benign prostatic hyperplasia BPH (benign prostatic hyperplasia) Chronic anticoagulation Chronic kidney disease Gout HLD (hyperlipidemia) Hyperlipidemia Hypothyroidism Hypothyroidism (acquired) Surgical History Surgical History History of tonsillectomy History of transurethral resection of prostate S/P ORIF (open reduction internal fixation) fracture left femur Family History Family History Mother Family history of cardiovascular disease Father Family history of heart disease in male family member before age 55, Onset Age: 43 Family history of cardiovascular disease Social History Social History Social History: The patient is and has 1 son. 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 Surrogate medical decision maker: Manish Quigley, son. His grandson lives with him. The patient stated that he was a former smoker. Occasionally uses alcohol. Occasional marijuana but no illicit drugs. Code status: Full code. Smoking packs per day: 2 Smoking cigarettes per day: 40.0 Years smoked: 10 Smoking pack-years: 20.00 Smoking status: Former smoker Second hand tobacco smoke exposure: Yes Alcohol intake: never Substance use: never Substance use type: marijuana Has the Lack of Transportation [facility]
--- NOTE | 2022-05-28 17:15 | PC.NURSE ---
Patient refused to get CT abdomen/pelvis that was ordered by Ana Scanlon. Attempted to call Ana and left her a message regarding this patient with call back number.
[2022-05-28] MEDS: WARFARIN (*PBKC) 3 MG TABLET BY MOUTH (18:14)
[2022-05-29] VITALS (13 sets, daily range): BP systolic 90–133; BP diastolic 51–92; PULSE 79–168; RESP 12–20; TEMP 36–36.9; O2SAT 95–98
[2022-05-29 06:01] LABS: Basophils Absolute Auto 0.1 K/mm3 (0.0-0.1); Basophils Percent Auto 0.5 % (0.2-1.2); Eosinophils Absolute Auto 0.4 K/mm3 (0-0.3); Eosinophils Percent Auto 4.1 % (0-4.4); Hematocrit 41.4 % (42.0-52.0); Hemoglobin 13.6 g/dL (14.0-18.0); Immature Granulocyte Absolute 0.04 K/mm3 (0.00-0.031); Immature Granulocyte Percent A 0.4 % (0-0.5); Lymphocytes Absolute Auto 1.52 K/mm3 (0.9-3.2); Lymphocytes Percent Auto 15.4 % (18.3-44.2); Mean Corpuscular HGB Conc 32.9 g/dl (32-36); Mean Corpuscular Hemoglobin 31.8 pg (26-34); Mean Corpuscular Volume 96.7 fl (80-100); Monocytes Percent Auto 10.2 % (2.6-8.5); Neutrophils Absolute Auto 6.8 K/mm3 (1.3-6.7); Neutrophils Percent Auto 69.4 % (45.5-73.1); Platelet Count Result 202 k/mm3 (150-375); Red Blood Count 4.28 M/mm3 (4.6-6.20); Red Cell Distribution Width 14.5 % (11.5-14.5); White Blood Count 9.9 K/mm3 (4.5-10.0)
[2022-05-29] MEDS: SODIUM CHLORIDE 0.9% IV 1,000 ML 999 ML IV CONT (06:09)
[2022-05-29 06:22] LABS: Alanine Aminotransferase 30 U/L (6-50); Albumin Level 3.5 g/dL (3.5-5.1); Alkaline Phosphatase 80 U/L (38-126); Anion Gap 10 mmol/L (8-16); Aspartate Amino Transferase 30 U/L (17-59); Bilirubin,Total 0.9 mg/dL (0.2-1.3); Blood Urea Nitrogen 23 mg/dL (9-20); Calcium 9.9 mg/dL (8.4-10.2); Carbon Dioxide 30 mmol/L (22-30); Chloride 94 mmol/L (98-107); Estimated CRCL calculation 70 ml/min; Estimated Glomerular Filt Rate 60; Glucose 133 mg/dL (65-110); Magnesium 1.9 mg/dL (1.6-2.3); Potassium 3.1 mmol/L (3.4-5.0); Sodium 134 mmol/L (137-145)
[2022-05-29] MEDS: TAMSULOSIN HCL 0.4 MG CAPSULE PO (08:15)
[2022-05-29] MEDS: METOPROLOL TARTRATE 25 MG TABLET PO ×2 (08:15→21:20)
[2022-05-29] MEDS: FERROUS SULFATE 324 MG TABLET PO ×2 (08:15→17:05)
[2022-05-29] MEDS: allopurinoL 100 MG TABLET PO (08:15)
[2022-05-29] MEDS: SENNA/DOCUSATE SODIUM TABLET 2 TAB PO ×2 (08:15→17:05)
[2022-05-29] MEDS: MIDODRINE HCL 2.5 MG TABLET PO ×3 (08:15→17:05)
[2022-05-29] MEDS: CYANOCOBALAMIN 1,000 MCG TABLET 1000 MCG PO (08:15)
[2022-05-29] MEDS: POTASSIUM CHLORIDE 20 MEQ TABLET 60 MEQ PO (08:17)
--- NOTE | 2022-05-29 10:45 | P.PNIM_ITS ---
Progress Note: A&P Assessment and Plan (1) Acute hypokalemia: Code(s): E87.6 - Hypokalemia Status: Acute Assessment and Plan: * K in the ED 2.6 * Replacement given * Currently 3.1 * 60mEq PO once, repeat * Recheck this afternoon * Mag 1.7, 2gm replacement ordered on 05/28/22 (2) Acute UTI: Code(s): N39.0 - Urinary tract infection, site not specified Status: Acute Assessment and Plan: * UA does appear to be infectious cloudy, 3+ leukocyte esterase, >75 WBC, 4+ bacteria, heavy mucous * change ceftriaxone to cefepime per culture sensitivities * WBC 9.9 * Cultures grew Citrobacter freundii * Trend urine output * Wonder if this is related to retention * Bladder scan PRN (3) BPH (benign prostatic hyperplasia): Code(s): N40.0 - Benign prostatic hyperplasia without lower urinary tract symptoms Status: Acute Assessment and Plan: * Could be the reason for the frequent UTIs * PRV was 171 * Trend urine output * Continue tamsulosin * CT of the abd ordered, however, patient refused due to close quarters * Urology consulted (4) Anemia: Code(s): D64.9 - Anemia, unspecified Status: Acute Assessment and Plan: * H/H is 13.6/41.4 * Continue home ferrous sulfate * Appears to be stable at this time * Continue to trend H/H * adjust therapy as indicated (5) CHF (congestive heart failure): Qualifiers: Heart failure chronicity: chronic Heart failure type: unspecified Qualified Code(s): I50.9 - Heart failure, unspecified Code(s): I50.9 - Heart failure, unspecified Status: Acute Assessment and Plan: * Seems to have chronic systolic heart failure appears not in exacerbation * Trend urine output * Daily weights * BNP 391 * 3+ pitting edema on the right leg and 1+ on the left leg * Echo showed a reduced EF of 40-45% and a normal diastolic function (6) Hyperlipidemia: Code(s): E78.5 - Hyperlipidemia, unspecified Status: Acute Assessment and Plan: * continue with heart healthy diet (7) Hypertension: Code(s): I10 - Essential (primary) hypertension Status: Acute Assessment and Plan: * BP is 110/86 * Seems to have some hypotension as well * Hold HCTZ, decrease metoprolol to twice a day * Trend BP * Adjust therapy as indicate Time Spent With Patient Time with patient: Greater than 35 minutes Subjective Date/time seen: 05/29/22 1045 Interval history: 05/29/22 1045 Patient was sitting in the chair. Patient did get up to the commode and chair with a pivot. He will not do the CT because he stated that he is claustrophobic. He is current denying any chest pain, shortness of breath, nausea, vomiting or diarrhea. He did state that is unaware that he has had multiple UTIs over the last couple of months. Urine culture did grow a resistant bacteria. ID pharm discussed and chose to put him on cefepime. 05/28/22 0830 Patient was lying in bed with blankets over his head. Patient stated that he was tired today. He currently denies any chest pain, shortness a breath, nausea, vomiting, diarrhea or constipation. He stated that he has been having a rough couple weeks. He stated that the weakness has go
--- NOTE | 2022-05-29 10:45 | PM.IMPN ---
Progress Note: A&P Assessment and Plan (1) Acute hypokalemia: Code(s): E87.6 - Hypokalemia Status: Acute Assessment and Plan: K in the ED 2.6 Replacement given Currently 3.1 60mEq PO once, repeat Recheck this afternoon Mag 1.7, 2gm replacement ordered on 05/28/22 (2) Acute UTI: Code(s): N39.0 - Urinary tract infection, site not specified Status: Acute Assessment and Plan: UA does appear to be infectious cloudy, 3+ leukocyte esterase, >75 WBC, 4+ bacteria, heavy mucous change ceftriaxone to cefepime per culture sensitivities WBC 9.9 Cultures grew Citrobacter freundii Trend urine output Wonder if this is related to retention Bladder scan PRN (3) BPH (benign prostatic hyperplasia): Code(s): N40.0 - Benign prostatic hyperplasia without lower urinary tract symptoms Status: Acute Assessment and Plan: Could be the reason for the frequent UTIs PRV was 171 Trend urine output Continue tamsulosin CT of the abd ordered, however, patient refused due to close quarters Urology consulted (4) Anemia: Code(s): D64.9 - Anemia, unspecified Status: Acute Assessment and Plan: H/H is 13.6/41.4 Continue home ferrous sulfate Appears to be stable at this time Continue to trend H/H adjust therapy as indicated (5) CHF (congestive heart failure): Qualifiers: Heart failure chronicity: chronic Heart failure type: unspecified Qualified Code(s): I50.9 - Heart failure, unspecified Code(s): I50.9 - Heart failure, unspecified Status: Acute Assessment and Plan: Seems to have chronic systolic heart failure appears not in exacerbation Trend urine output Daily weights BNP 391 3+ pitting edema on the right leg and 1+ on the left leg Echo showed a reduced EF of 40-45% and a normal diastolic function (6) Hyperlipidemia: Code(s): E78.5 - Hyperlipidemia, unspecified Status: Acute Assessment and Plan: continue with heart healthy diet (7) Hypertension: Code(s): I10 - Essential (primary) hypertension Status: Acute Assessment and Plan: BP is 110/86 Seems to have some hypotension as well Hold HCTZ, decrease metoprolol to twice a day Trend BP Adjust therapy as indicate Time Spent With Patient Time with patient: Greater than 35 minutes Subjective Date/time seen: 05/29/22 1045 Interval history: 05/29/22 1045 Patient was sitting in the chair. Patient did get up to the commode and chair with a pivot. He will not do the CT because he stated that he is claustrophobic. He is current denying any chest pain, shortness of breath, nausea, vomiting or diarrhea. He did state that is unaware that he has had multiple UTIs over the last couple of months. Urine culture did grow a resistant bacteria. ID pharm discussed and chose to put him on cefepime. 05/28/22 0830 Patient was lying in bed with blankets over his head. Patient stated that he was tired today. He currently denies any chest pain, shortness a breath, nausea, vomiting, diarrhea or constipation. He stated that he has been having a rough couple weeks. He stated that the weakness has gotten worse however when he left rehab he was able to walk 50-60 feet. He also stated that since the surgery his left leg has been larger than the right leg. However the right leg upon exam was [place] than the left leg. Patient also stated that he has had a lack of appetite and just does not feel like eating. He also stated that he does not feel like he fully empties when he urinates and that he has been having some burning and pain with urination as well. Post residual void has been ordered. PVR did show 170ml. Urinary catheter ordered, will ask urology to come see the patient since he is having frequent UTIs. 05/27/22?
[2022-05-29 14:23] LABS: Potassium 3.7 mmol/L (3.4-5.0)
--- NOTE | 2022-05-29 14:46 | PC.NURSE ---
On 05/29/22, the student, [Thuy Salgado], provided care and completed [facility] documentation on this patient. I have reviewed the student's documentation and agree with the findings.
[2022-05-29] MEDS: traMADol HCL (*CRX) 50 MG TABLET PO ×2 (15:55→21:25)
[2022-05-29] MEDS: WARFARIN (*PBKC) 3 MG TABLET BY MOUTH (17:05)
[2022-05-29] MEDS: SODIUM CHLORIDE 0.9% IV 1,000 ML 75 ML IV CONT (18:43)
[2022-05-30] VITALS (11 sets, daily range): BP systolic 104–111; BP diastolic 69–78; PULSE 67–99; RESP 14–20; TEMP 35.9–36.4; O2SAT 97–99
[2022-05-30 05:48] LABS: Basophils Absolute Auto 0.1 K/mm3 (0.0-0.1); Basophils Percent Auto 0.6 % (0.2-1.2); Eosinophils Absolute Auto 0.6 K/mm3 (0-0.3); Eosinophils Percent Auto 7.5 % (0-4.4); Hematocrit 41.1 % (42.0-52.0); Hemoglobin 13.2 g/dL (14.0-18.0); Immature Granulocyte Absolute 0.03 K/mm3 (0.00-0.031); Immature Granulocyte Percent A 0.4 % (0-0.5); Lymphocytes Absolute Auto 2.55 K/mm3 (0.9-3.2); Lymphocytes Percent Auto 32.9 % (18.3-44.2); Mean Corpuscular HGB Conc 32.1 g/dl (32-36); Mean Corpuscular Hemoglobin 32.1 pg (26-34); Mean Platelet Volume 10.9 fl (7.4-10.4); Monocytes Absolute Auto 1.2 K/mm3 (0.1-0.6); Monocytes Percent Auto 14.8 % (2.6-8.5); Neutrophils Absolute Auto 3.4 K/mm3 (1.3-6.7); Neutrophils Percent Auto 43.8 % (45.5-73.1); Platelet Count Result 186 k/mm3 (150-375); Red Blood Count 4.11 M/mm3 (4.6-6.20); Red Cell Distribution Width 14.6 % (11.5-14.5); White Blood Count 7.8 K/mm3 (4.5-10.0)
[2022-05-30 05:58] LABS: Alanine Aminotransferase 26 U/L (6-50); Albumin Level 3.1 g/dL (3.5-5.1); Alkaline Phosphatase 70 U/L (38-126); Anion Gap 10 mmol/L (8-16); Aspartate Amino Transferase 26 U/L (17-59); Bilirubin,Total 0.6 mg/dL (0.2-1.3); Blood Urea Nitrogen 19 mg/dL (9-20); Calcium 9.7 mg/dL (8.4-10.2); Carbon Dioxide 27 mmol/L (22-30); Chloride 99 mmol/L (98-107); Estimated CRCL calculation 71 ml/min; Estimated Glomerular Filt Rate 60; Glucose 95 mg/dL (65-110); Magnesium 1.9 mg/dL (1.6-2.3); Potassium 3.3 mmol/L (3.4-5.0); Sodium 136 mmol/L (137-145)
--- NOTE | 2022-05-30 06:01 | PC.NURSE ---
Kap[place] catheter leaking, order received to DC catheter per Dr Vigil.
[2022-05-30] MEDS: CYANOCOBALAMIN 1,000 MCG TABLET 1000 MCG PO (08:30)
[2022-05-30] MEDS: TAMSULOSIN HCL 0.4 MG CAPSULE PO (08:30)
[2022-05-30] MEDS: FERROUS SULFATE 324 MG TABLET PO ×2 (08:30→16:40)
[2022-05-30] MEDS: allopurinoL 100 MG TABLET PO (08:30)
[2022-05-30] MEDS: METOPROLOL TARTRATE 25 MG TABLET PO ×2 (08:30→20:15)
[2022-05-30] MEDS: MIDODRINE HCL 2.5 MG TABLET PO ×3 (08:30→16:40)
[2022-05-30] MEDS: SENNA/DOCUSATE SODIUM TABLET 2 TAB PO ×2 (08:30→16:40)
[2022-05-30] MEDS: SODIUM CHLORIDE 0.9% IV 1,000 ML 75 ML IV CONT ×2 (08:34→21:52)
[2022-05-30] MEDS: ACETAMINOPHEN 325 MG TABLET 650 MG PO (09:56)
--- NOTE | 2022-05-30 10:30 | PM.IMPN ---
Progress Note: A&P Assessment and Plan (1) Acute hypokalemia: Code(s): E87.6 - Hypokalemia Status: Acute Assessment and Plan: K in the ED 2.6 Replacement given Currently 3.3 40mEq PO once Mag 1.9 (2) Acute UTI: Code(s): N39.0 - Urinary tract infection, site not specified Status: Acute Assessment and Plan: UA does appear to be infectious cloudy, 3+ leukocyte esterase, >75 WBC, 4+ bacteria, heavy mucous change ceftriaxone to cefepime per culture sensitivities WBC 7.8 Cultures grew Citrobacter freundii Trend urine output Wonder if this is related to retention Bladder scan PRN (3) BPH (benign prostatic hyperplasia): Code(s): N40.0 - Benign prostatic hyperplasia without lower urinary tract symptoms Status: Acute Assessment and Plan: Could be the reason for the frequent UTIs PRV was 171 Trend urine output Continue tamsulosin CT of the abd ordered, however, patient refused due to close quarters Urology consulted Will need a voiding trial (4) Anemia: Code(s): D64.9 - Anemia, unspecified Status: Acute Assessment and Plan: H/H is 13.2/41.1 Continue home ferrous sulfate Appears to be stable at this time Continue to trend H/H adjust therapy as indicated (5) CHF (congestive heart failure): Qualifiers: Heart failure chronicity: chronic Heart failure type: unspecified Qualified Code(s): I50.9 - Heart failure, unspecified Code(s): I50.9 - Heart failure, unspecified Status: Acute Assessment and Plan: Seems to have chronic systolic heart failure appears not in exacerbation Trend urine output Daily weights BNP 391 3+ pitting edema on the right leg and 1+ on the left leg Echo showed a reduced EF of 40-45% and a normal diastolic function (6) Hyperlipidemia: Code(s): E78.5 - Hyperlipidemia, unspecified Status: Acute Assessment and Plan: continue with heart healthy diet (7) Hypertension: Code(s): I10 - Essential (primary) hypertension Status: Acute Assessment and Plan: BP is 111/69 Seems to have some hypotension as well Hold HCTZ, decrease metoprolol to twice a day Trend BP Adjust therapy as indicate Plan Did go and worked with the patient with PT. He did ok getting up however did need support from two of us. He was able to use the walk to get back into bed. Did rub his back to see if that would help with his back pain Time Spent With Patient Time with patient: Greater than 35 minutes Subjective Date/time seen: 05/30/22 1030 Interval history: 05/30/22 1030 Patient was sitting in the chair. Patient seems to be a little disgruntled due to the fact that he was in the chair for 10 hours. I talked to PT and has not a call me when they get him back in the bed. Currently he is doing okay fluids were started overnight due to to low urine output. He was also complaining of some back pain. He stated that he feels it is from the chair. Currently he denies any chest pain, shortness of breath, nausea, vomiting, diarrhea or constipation. 05/29/22 1045 Patient was sitting in the chair. Patient did get up to the commode and chair with a pivot. He will not do the CT because he stated that he is claustrophobic. He is current denying any chest pain, shortness of breath, nausea, vomiting or diarrhea. He did state that is unaware that he has had multiple UTIs over the last couple of months. Urine culture did grow a resistant bacteria. ID pharm discussed and chose to put him on cefepime. 05/28/22 0830 Patient was lying in bed with blankets over his head. Patient stated that he was tired today. He currently denies any chest pain, shortness a breath, nausea, vomiting, diarrhea or constipation. He stated that he has been having a rough
--- NOTE | 2022-05-30 10:30 | P.PNIM_ITS ---
Progress Note: A&P Assessment and Plan (1) Acute hypokalemia: Code(s): E87.6 - Hypokalemia Status: Acute Assessment and Plan: * K in the ED 2.6 * Replacement given * Currently 3.3 * 40mEq PO once * Mag 1.9 (2) Acute UTI: Code(s): N39.0 - Urinary tract infection, site not specified Status: Acute Assessment and Plan: * UA does appear to be infectious cloudy, 3+ leukocyte esterase, >75 WBC, 4+ bacteria, heavy mucous * change ceftriaxone to cefepime per culture sensitivities * WBC 7.8 * Cultures grew Citrobacter freundii * Trend urine output * Wonder if this is related to retention * Bladder scan PRN (3) BPH (benign prostatic hyperplasia): Code(s): N40.0 - Benign prostatic hyperplasia without lower urinary tract symptoms Status: Acute Assessment and Plan: * Could be the reason for the frequent UTIs * PRV was 171 * Trend urine output * Continue tamsulosin * CT of the abd ordered, however, patient refused due to close quarters * Urology consulted * Will need a voiding trial (4) Anemia: Code(s): D64.9 - Anemia, unspecified Status: Acute Assessment and Plan: * H/H is 13.2/41.1 * Continue home ferrous sulfate * Appears to be stable at this time * Continue to trend H/H * adjust therapy as indicated (5) CHF (congestive heart failure): Qualifiers: Heart failure chronicity: chronic Heart failure type: unspecified Qualified Code(s): I50.9 - Heart failure, unspecified Code(s): I50.9 - Heart failure, unspecified Status: Acute Assessment and Plan: * Seems to have chronic systolic heart failure appears not in exacerbation * Trend urine output * Daily weights * BNP 391 * 3+ pitting edema on the right leg and 1+ on the left leg * Echo showed a reduced EF of 40-45% and a normal diastolic function (6) Hyperlipidemia: Code(s): E78.5 - Hyperlipidemia, unspecified Status: Acute Assessment and Plan: * continue with heart healthy diet (7) Hypertension: Code(s): I10 - Essential (primary) hypertension Status: Acute Assessment and Plan: * BP is 111/69 * Seems to have some hypotension as well * Hold HCTZ, decrease metoprolol to twice a day * Trend BP * Adjust therapy as indicate Plan Did go and worked with the patient with PT. He did ok getting up however did need support from two of us. He was able to use the walk to get back into bed. Did rub his back to see if that would help with his back pain Time Spent With Patient Time with patient: Greater than 35 minutes Subjective Date/time seen: 05/30/22 1030 Interval history: 05/30/22 1030 Patient was sitting in the chair. Patient seems to be a little disgruntled due to the fact that he was in the chair for 10 hours. I talked to PT and has not a call me when they get him back in the bed. Currently he is doing okay fluids were started overnight due to to low urine output. He was also complaining of some back pain. He stated that he feels it is from the chair. Currently he denies any chest pain, shortness of breath, nausea, vomiting, diarrhea or constipation. 05/29/22 1045 Patient was sitting in the chair. Patient
[2022-05-30] MEDS: WARFARIN (*PBKC) 3 MG TABLET BY MOUTH (16:40)
[2022-05-31] VITALS (10 sets, daily range): BP systolic 111–131; BP diastolic 65–80; PULSE 75–92; RESP 17–20; TEMP 36.2–36.8; O2SAT 98–99
[2022-05-31 05:54] LABS: Basophils Percent Auto 0.6 % (0.2-1.2); Eosinophils Absolute Auto 0.6 K/mm3 (0-0.3); Eosinophils Percent Auto 9.4 % (0-4.4); Hematocrit 40.2 % (42.0-52.0); Hemoglobin 12.8 g/dL (14.0-18.0); Immature Granulocyte Absolute 0.02 K/mm3 (0.00-0.031); Immature Granulocyte Percent A 0.3 % (0-0.5); Lymphocytes Absolute Auto 1.86 K/mm3 (0.9-3.2); Lymphocytes Percent Auto 29.1 % (18.3-44.2); Mean Corpuscular HGB Conc 31.8 g/dl (32-36); Mean Corpuscular Volume 100.5 fl (80-100); Mean Platelet Volume 10.8 fl (7.4-10.4); Monocytes Absolute Auto 0.8 K/mm3 (0.1-0.6); Monocytes Percent Auto 12.5 % (2.6-8.5); Neutrophils Absolute Auto 3.1 K/mm3 (1.3-6.7); Neutrophils Percent Auto 48.1 % (45.5-73.1); Platelet Count Result 194 k/mm3 (150-375); Red Cell Distribution Width 14.6 % (11.5-14.5); White Blood Count 6.4 K/mm3 (4.5-10.0)
[2022-05-31 06:09] LABS: Alanine Aminotransferase 24 U/L (6-50); Alkaline Phosphatase 68 U/L (38-126); Anion Gap 9 mmol/L (8-16); Aspartate Amino Transferase 24 U/L (17-59); Bilirubin,Total 0.5 mg/dL (0.2-1.3); Blood Urea Nitrogen 17 mg/dL (9-20); Calcium 9.8 mg/dL (8.4-10.2); Carbon Dioxide 27 mmol/L (22-30); Chloride 103 mmol/L (98-107); Estimated CRCL calculation 85 ml/min; Estimated Glomerular Filt Rate > 60; Glucose 95 mg/dL (65-110); Magnesium 1.8 mg/dL (1.6-2.3); Potassium 3.2 mmol/L (3.4-5.0); Sodium 139 mmol/L (137-145)
[2022-05-31] MEDS: CYANOCOBALAMIN 1,000 MCG TABLET 1000 MCG PO (08:45)
[2022-05-31] MEDS: FERROUS SULFATE 324 MG TABLET PO ×2 (08:45→18:33)
[2022-05-31] MEDS: SENNA/DOCUSATE SODIUM TABLET 2 TAB PO ×2 (08:45→18:33)
[2022-05-31] MEDS: METOPROLOL TARTRATE 25 MG TABLET PO ×2 (08:45→20:26)
[2022-05-31] MEDS: MIDODRINE HCL 2.5 MG TABLET PO ×3 (08:45→18:33)
[2022-05-31] MEDS: TAMSULOSIN HCL 0.4 MG CAPSULE PO (08:50)
[2022-05-31] MEDS: allopurinoL 100 MG TABLET PO (08:50)
--- NOTE | 2022-05-31 10:00 | P.PNIM_ITS ---
Progress Note: A&P Assessment and Plan (1) Acute hypokalemia: Code(s): E87.6 - Hypokalemia Status: Acute Assessment and Plan: * K in the ED 2.6 * Replacement given * Currently 3.2 * 40mEq PO once, repeated * Mag 1.9 (2) Acute UTI: Code(s): N39.0 - Urinary tract infection, site not specified Status: Acute Assessment and Plan: * UA does appear to be infectious cloudy, 3+ leukocyte esterase, >75 WBC, 4+ bacteria, heavy mucous * change ceftriaxone to cefepime per culture sensitivities * WBC 6.4 * Cultures grew Citrobacter freundii * Trend urine output * Wonder if this is related to retention * Bladder scan PRN (3) BPH (benign prostatic hyperplasia): Code(s): N40.0 - Benign prostatic hyperplasia without lower urinary tract symptoms Status: Acute Assessment and Plan: * Could be the reason for the frequent UTIs * PRV was 171 * Trend urine output * Continue tamsulosin * CT of the abd ordered, however, patient refused due to close quarters * Urology consulted * Will need a voiding trial (4) Anemia: Code(s): D64.9 - Anemia, unspecified Status: Acute Assessment and Plan: * H/H is 12.8/40.2 * Continue home ferrous sulfate * Appears to be stable at this time * Continue to trend H/H * adjust therapy as indicated (5) CHF (congestive heart failure): Qualifiers: Heart failure type: unspecified Heart failure chronicity: chronic Qualified Code(s): I50.9 - Heart failure, unspecified Code(s): I50.9 - Heart failure, unspecified Status: Acute Assessment and Plan: * Seems to have chronic systolic heart failure appears not in exacerbation * Trend urine output * Daily weights * BNP 391 * 3+ pitting edema on the right leg and 1+ on the left leg * Echo showed a reduced EF of 40-45% and a normal diastolic function (6) Hyperlipidemia: Code(s): E78.5 - Hyperlipidemia, unspecified Status: Acute Assessment and Plan: * continue with heart healthy diet (7) Hypertension: Code(s): I10 - Essential (primary) hypertension Status: Acute Assessment and Plan: * BP is 115/80 * Seems to have some hypotension as well * Hold HCTZ, decrease metoprolol to twice a day * Trend BP * Adjust therapy as indicate Plan Did go and worked with the patient with PT. He did ok getting up however did need support from two of us. He was able to use the walker to get back into bed. Time Spent With Patient Time with patient: Greater than 35 minutes Subjective Date/time seen: 05/31/22 1000 Interval history: 05/31/22 1000 patient stated that he is doing okay today. He is still having some severe back pain. He also stated that he is still having some weakness. He denies any chest pain, shortness a breath, nausea, vomiting, diarrhea, constipation, weakness or fatigue. Talked to the nurse about get the patient out of bed. He stated that once he gets the walker under him that he feels like he can do it. 05/30/22 1030 Patient was sitting in the chair. Patient seems to be a little disgruntled due to the fact that he was in the chair for 10 hours. I talked to PT and has not a call me when they get h
--- NOTE | 2022-05-31 10:00 | PM.IMPN ---
Progress Note: A&P Assessment and Plan (1) Acute hypokalemia: Code(s): E87.6 - Hypokalemia Status: Acute Assessment and Plan: K in the ED 2.6 Replacement given Currently 3.2 40mEq PO once, repeated Mag 1.9 (2) Acute UTI: Code(s): N39.0 - Urinary tract infection, site not specified Status: Acute Assessment and Plan: UA does appear to be infectious cloudy, 3+ leukocyte esterase, >75 WBC, 4+ bacteria, heavy mucous change ceftriaxone to cefepime per culture sensitivities WBC 6.4 Cultures grew Citrobacter freundii Trend urine output Wonder if this is related to retention Bladder scan PRN (3) BPH (benign prostatic hyperplasia): Code(s): N40.0 - Benign prostatic hyperplasia without lower urinary tract symptoms Status: Acute Assessment and Plan: Could be the reason for the frequent UTIs PRV was 171 Trend urine output Continue tamsulosin CT of the abd ordered, however, patient refused due to close quarters Urology consulted Will need a voiding trial (4) Anemia: Code(s): D64.9 - Anemia, unspecified Status: Acute Assessment and Plan: H/H is 12.8/40.2 Continue home ferrous sulfate Appears to be stable at this time Continue to trend H/H adjust therapy as indicated (5) CHF (congestive heart failure): Qualifiers: Heart failure type: unspecified Heart failure chronicity: chronic Qualified Code(s): I50.9 - Heart failure, unspecified Code(s): I50.9 - Heart failure, unspecified Status: Acute Assessment and Plan: Seems to have chronic systolic heart failure appears not in exacerbation Trend urine output Daily weights BNP 391 3+ pitting edema on the right leg and 1+ on the left leg Echo showed a reduced EF of 40-45% and a normal diastolic function (6) Hyperlipidemia: Code(s): E78.5 - Hyperlipidemia, unspecified Status: Acute Assessment and Plan: continue with heart healthy diet (7) Hypertension: Code(s): I10 - Essential (primary) hypertension Status: Acute Assessment and Plan: BP is 115/80 Seems to have some hypotension as well Hold HCTZ, decrease metoprolol to twice a day Trend BP Adjust therapy as indicate Plan Did go and worked with the patient with PT. He did ok getting up however did need support from two of us. He was able to use the walker to get back into bed. Time Spent With Patient Time with patient: Greater than 35 minutes Subjective Date/time seen: 05/31/22 1000 Interval history: 05/31/22 1000 patient stated that he is doing okay today. He is still having some severe back pain. He also stated that he is still having some weakness. He denies any chest pain, shortness a breath, nausea, vomiting, diarrhea, constipation, weakness or fatigue. Talked to the nurse about get the patient out of bed. He stated that once he gets the walker under him that he feels like he can do it. 05/30/22 1030 Patient was sitting in the chair. Patient seems to be a little disgruntled due to the fact that he was in the chair for 10 hours. I talked to PT and has not a call me when they get him back in the bed. Currently he is doing okay fluids were started overnight due to to low urine output. He was also complaining of some back pain. He stated that he feels it is from the chair. Currently he denies any chest pain, shortness of breath, nausea, vomiting, diarrhea or constipation. 05/29/22 1045 Patient was sitting in the chair. Patient did get up to the commode and chair with a pivot. He will not do the CT because he stated that he is claustrophobic. He is current denying any chest pain, shortness of breath, nausea, vomiting or diarrhea. He did state that is unaware that he has had multiple UTIs over the last couple of anastasia
[2022-05-31] MEDS: SODIUM CHLORIDE 0.9% IV 1,000 ML 75 ML IV CONT (11:43)
[2022-05-31] MEDS: MECLIZINE HCL 25 MG TABLET PO (11:44)
[2022-05-31] MEDS: POTASSIUM CHLORIDE 20 MEQ TABLET 40 MEQ PO (12:37)
[2022-05-31] MEDS: WARFARIN (*PBKC) 3 MG TABLET BY MOUTH (18:33)
[2022-05-31] MEDS: traMADol HCL (*CRX) 50 MG TABLET PO (18:37)
[2022-06-01] VITALS (11 sets, daily range): BP systolic 99–120; BP diastolic 64–80; PULSE 72–93; RESP 16–18; TEMP 36.5–36.7; O2SAT 97–98
[2022-06-01] MEDS: traMADol HCL (*CRX) 50 MG TABLET PO ×2 (02:16→20:17)
[2022-06-01 06:34] LABS: Basophils Absolute Auto 0.1 K/mm3 (0.0-0.1); Basophils Percent Auto 0.9 % (0.2-1.2); Eosinophils Absolute Auto 0.7 K/mm3 (0-0.3); Eosinophils Percent Auto 9.5 % (0-4.4); Hematocrit 38.6 % (42.0-52.0); Hemoglobin 12.2 g/dL (14.0-18.0); Immature Granulocyte Absolute 0.02 K/mm3 (0.00-0.031); Immature Granulocyte Percent A 0.3 % (0-0.5); Lymphocytes Absolute Auto 2.36 K/mm3 (0.9-3.2); Lymphocytes Percent Auto 34.4 % (18.3-44.2); Mean Corpuscular HGB Conc 31.6 g/dl (32-36); Mean Corpuscular Hemoglobin 31.2 pg (26-34); Mean Corpuscular Volume 98.7 fl (80-100); Mean Platelet Volume 10.9 fl (7.4-10.4); Monocytes Absolute Auto 0.7 K/mm3 (0.1-0.6); Monocytes Percent Auto 10.2 % (2.6-8.5); Neutrophils Absolute Auto 3.1 K/mm3 (1.3-6.7); Neutrophils Percent Auto 44.7 % (45.5-73.1); Platelet Count Result 209 k/mm3 (150-375); Red Blood Count 3.91 M/mm3 (4.6-6.20); Red Cell Distribution Width 14.6 % (11.5-14.5); White Blood Count 6.9 K/mm3 (4.5-10.0)
[2022-06-01 06:50] LABS: Alanine Aminotransferase 23 U/L (6-50); Albumin Level 2.9 g/dL (3.5-5.1); Alkaline Phosphatase 73 U/L (38-126); Anion Gap 7 mmol/L (8-16); Aspartate Amino Transferase 24 U/L (17-59); Bilirubin,Total 0.5 mg/dL (0.2-1.3); Blood Urea Nitrogen 14 mg/dL (9-20); Calcium 9.9 mg/dL (8.4-10.2); Carbon Dioxide 24 mmol/L (22-30); Chloride 107 mmol/L (98-107); Estimated CRCL calculation 77 ml/min; Estimated Glomerular Filt Rate > 60; Glucose 85 mg/dL (65-110); Magnesium 1.8 mg/dL (1.6-2.3); Potassium 3.7 mmol/L (3.4-5.0); Sodium 138 mmol/L (137-145)
[2022-06-01] MEDS: METOPROLOL TARTRATE 25 MG TABLET PO ×2 (08:58→20:14)
[2022-06-01] MEDS: CYANOCOBALAMIN 1,000 MCG TABLET 1000 MCG PO (08:58)
[2022-06-01] MEDS: FERROUS SULFATE 324 MG TABLET PO ×2 (08:58→17:39)
[2022-06-01] MEDS: SENNA/DOCUSATE SODIUM TABLET 2 TAB PO ×2 (08:58→17:39)
[2022-06-01] MEDS: TAMSULOSIN HCL 0.4 MG CAPSULE PO (08:59)
[2022-06-01] MEDS: MIDODRINE HCL 2.5 MG TABLET PO ×3 (08:59→17:39)
[2022-06-01] MEDS: allopurinoL 100 MG TABLET PO (08:59)
--- NOTE | 2022-06-01 10:45 | P.PNIM_ITS ---
Progress Note: A&P Assessment and Plan (1) Acute hypokalemia: Code(s): E87.6 - Hypokalemia Status: Acute Assessment and Plan: * K in the ED 2.6 * Replacement given * Currently 3.7 * 40mEq PO once, repeated * Mag 1.8 (2) Acute UTI: Code(s): N39.0 - Urinary tract infection, site not specified Status: Acute Assessment and Plan: * UA does appear to be infectious cloudy, 3+ leukocyte esterase, >75 WBC, 4+ bacteria, heavy mucous * Continue cefepime per culture sensitivities for a total of 10 doses * WBC 6.8 * Cultures grew Citrobacter freundii * Trend urine output * Wonder if this is related to retention * Bladder scan PRN * Will get a picc line in the am (3) BPH (benign prostatic hyperplasia): Code(s): N40.0 - Benign prostatic hyperplasia without lower urinary tract symptoms Status: Acute Assessment and Plan: * Could be the reason for the frequent UTIs * PRV was 171 * Trend urine output * Continue tamsulosin * CT of the abd ordered, however, patient refused due to close quarters * Urology consulted * Voiding trial today (4) Anemia: Code(s): D64.9 - Anemia, unspecified Status: Acute Assessment and Plan: * H/H is 12.2/38.6 * Continue home ferrous sulfate * Appears to be stable at this time * Continue to trend H/H * adjust therapy as indicated (5) CHF (congestive heart failure): Qualifiers: Heart failure type: unspecified Heart failure chronicity: chronic Qualified Code(s): I50.9 - Heart failure, unspecified Code(s): I50.9 - Heart failure, unspecified Status: Acute Assessment and Plan: * Seems to have chronic systolic heart failure appears not in exacerbation * Trend urine output * Daily weights * BNP 391 * 3+ pitting edema on the right leg and 1+ on the left leg * Echo showed a reduced EF of 40-45% and a normal diastolic function (6) Hyperlipidemia: Code(s): E78.5 - Hyperlipidemia, unspecified Status: Acute Assessment and Plan: * continue with heart healthy diet (7) Hypertension: Code(s): I10 - Essential (primary) hypertension Status: Acute Assessment and Plan: * BP is 99/64 * Seems to have some hypotension as well * Hold HCTZ, decrease metoprolol to twice a day * Trend BP * Adjust therapy as indicate Time Spent With Patient Time with patient: Greater than 35 minutes Subjective Date/time seen: 06/01/22 1045 Interval history: 06/01/22 1045 Patient is doing ok. He denies any chest pain, shortness of breath, nausea, vomiting, diarrhea, or constipation. He did state that he is still feeling fairly weak. He also wanted to know if he can do some exercises today. Nursing stated that he did walk in the room with her, he just is weak getting to a standing position. 05/31/22 1000 patient stated that he is doing okay today. He is still having some severe back pain. He also stated that he is still having some weakness. He denies any chest pain, shortness a breath, nausea, vomiting, diarrhea, constipation, weakness or fatigue. Talked to the nurse about get the patient out of bed. He stated that once he gets the walker under him that he feels like he can do it.
--- NOTE | 2022-06-01 10:45 | PM.IMPN ---
Progress Note: A&P Assessment and Plan (1) Acute hypokalemia: Code(s): E87.6 - Hypokalemia Status: Acute Assessment and Plan: K in the ED 2.6 Replacement given Currently 3.7 40mEq PO once, repeated Mag 1.8 (2) Acute UTI: Code(s): N39.0 - Urinary tract infection, site not specified Status: Acute Assessment and Plan: UA does appear to be infectious cloudy, 3+ leukocyte esterase, >75 WBC, 4+ bacteria, heavy mucous Continue cefepime per culture sensitivities for a total of 10 doses WBC 6.8 Cultures grew Citrobacter freundii Trend urine output Wonder if this is related to retention Bladder scan PRN Will get a picc line in the am (3) BPH (benign prostatic hyperplasia): Code(s): N40.0 - Benign prostatic hyperplasia without lower urinary tract symptoms Status: Acute Assessment and Plan: Could be the reason for the frequent UTIs PRV was 171 Trend urine output Continue tamsulosin CT of the abd ordered, however, patient refused due to close quarters Urology consulted Voiding trial today (4) Anemia: Code(s): D64.9 - Anemia, unspecified Status: Acute Assessment and Plan: H/H is 12.2/38.6 Continue home ferrous sulfate Appears to be stable at this time Continue to trend H/H adjust therapy as indicated (5) CHF (congestive heart failure): Qualifiers: Heart failure type: unspecified Heart failure chronicity: chronic Qualified Code(s): I50.9 - Heart failure, unspecified Code(s): I50.9 - Heart failure, unspecified Status: Acute Assessment and Plan: Seems to have chronic systolic heart failure appears not in exacerbation Trend urine output Daily weights BNP 391 3+ pitting edema on the right leg and 1+ on the left leg Echo showed a reduced EF of 40-45% and a normal diastolic function (6) Hyperlipidemia: Code(s): E78.5 - Hyperlipidemia, unspecified Status: Acute Assessment and Plan: continue with heart healthy diet (7) Hypertension: Code(s): I10 - Essential (primary) hypertension Status: Acute Assessment and Plan: BP is 99/64 Seems to have some hypotension as well Hold HCTZ, decrease metoprolol to twice a day Trend BP Adjust therapy as indicate Time Spent With Patient Time with patient: Greater than 35 minutes Subjective Date/time seen: 06/01/22 1045 Interval history: 06/01/22 104 Patient is doing ok. He denies any chest pain, shortness of breath, nausea, vomiting, diarrhea, or constipation. He did state that he is still feeling fairly weak. He also wanted to know if he can do some exercises today. Nursing stated that he did walk in the room with her, he just is weak getting to a standing position. 05/31/22 1000 patient stated that he is doing okay today. He is still having some severe back pain. He also stated that he is still having some weakness. He denies any chest pain, shortness a breath, nausea, vomiting, diarrhea, constipation, weakness or fatigue. Talked to the nurse about get the patient out of bed. He stated that once he gets the walker under him that he feels like he can do it. 05/30/22 1030 Patient was sitting in the chair. Patient seems to be a little disgruntled due to the fact that he was in the chair for 10 hours. I talked to PT and has not a call me when they get him back in the bed. Currently he is doing okay fluids were started overnight due to to low urine output. He was also complaining of some back pain. He stated that he feels it is from the chair. Currently he denies any chest pain, shortness of breath, nausea, vomiting, diarrhea or constipation. 05/29/22 104 Patient was sitting in the chair. Patient did get up to the commode and chair with a pivot. He will not do the CT because he
[2022-06-01] MEDS: MECLIZINE HCL 25 MG TABLET PO (13:27)
[2022-06-01] MEDS: WARFARIN (*PBKC) 3 MG TABLET BY MOUTH (17:39)
[2022-06-02] VITALS (11 sets, daily range): BP systolic 102–130; BP diastolic 59–80; PULSE 71–98; RESP 16–18; TEMP 36.6–36.9; O2SAT 97–100
[2022-06-02 06:39] LABS: Basophils Absolute Auto 0.1 K/mm3 (0.0-0.1); Basophils Percent Auto 0.8 % (0.2-1.2); Eosinophils Absolute Auto 0.6 K/mm3 (0-0.3); Eosinophils Percent Auto 8.6 % (0-4.4); Hematocrit 41.8 % (42.0-52.0); Hemoglobin 13.1 g/dL (14.0-18.0); Immature Granulocyte Absolute 0.02 K/mm3 (0.00-0.031); Immature Granulocyte Percent A 0.3 % (0-0.5); Lymphocytes Absolute Auto 1.92 K/mm3 (0.9-3.2); Lymphocytes Percent Auto 30.1 % (18.3-44.2); Mean Corpuscular HGB Conc 31.3 g/dl (32-36); Mean Corpuscular Hemoglobin 31.5 pg (26-34); Mean Corpuscular Volume 100.5 fl (80-100); Mean Platelet Volume 10.7 fl (7.4-10.4); Monocytes Absolute Auto 0.6 K/mm3 (0.1-0.6); Monocytes Percent Auto 8.6 % (2.6-8.5); Neutrophils Absolute Auto 3.3 K/mm3 (1.3-6.7); Neutrophils Percent Auto 51.6 % (45.5-73.1); Platelet Count Result 203 k/mm3 (150-375); Red Blood Count 4.16 M/mm3 (4.6-6.20); Red Cell Distribution Width 14.6 % (11.5-14.5); White Blood Count 6.4 K/mm3 (4.5-10.0)
[2022-06-02 06:46] LABS: Alanine Aminotransferase 21 U/L (6-50); Albumin Level 3.1 g/dL (3.5-5.1); Alkaline Phosphatase 68 U/L (38-126); Anion Gap 10 mmol/L (8-16); Aspartate Amino Transferase 23 U/L (17-59); Bilirubin,Total 0.5 mg/dL (0.2-1.3); Blood Urea Nitrogen 15 mg/dL (9-20); Calcium 10.1 mg/dL (8.4-10.2); Carbon Dioxide 26 mmol/L (22-30); Chloride 104 mmol/L (98-107); Estimated CRCL calculation 71 ml/min; Estimated Glomerular Filt Rate 60; Glucose 104 mg/dL (65-110); Magnesium 1.6 mg/dL (1.6-2.3); Potassium 3.5 mmol/L (3.4-5.0); Sodium 140 mmol/L (137-145)
[2022-06-02] MEDS: MAGNESIUM SULF 4 GM/WATER100ML 4 GM/100 ML BAG IVPB (09:19)
[2022-06-02] MEDS: SENNA/DOCUSATE SODIUM TABLET 2 TAB PO ×2 (09:19→18:32)
[2022-06-02] MEDS: TAMSULOSIN HCL 0.4 MG CAPSULE PO (09:20)
[2022-06-02] MEDS: CYANOCOBALAMIN 1,000 MCG TABLET 1000 MCG PO (09:20)
[2022-06-02] MEDS: FERROUS SULFATE 324 MG TABLET PO ×2 (09:20→18:32)
[2022-06-02] MEDS: allopurinoL 100 MG TABLET PO (09:20)
[2022-06-02] MEDS: METOPROLOL TARTRATE 25 MG TABLET PO ×2 (09:20→20:30)
[2022-06-02] MEDS: MIDODRINE HCL 2.5 MG TABLET PO ×3 (09:20→18:32)
[2022-06-02] MEDS: ERGOCALCIFEROL 50,000 UNITS CAPSULE 50000 UNITS BY MOUTH (09:21)
--- NOTE | 2022-06-02 10:15 | P.PNIM_ITS ---
Progress Note: A&P Assessment and Plan (1) Acute hypokalemia: Code(s): E87.6 - Hypokalemia Status: Acute Assessment and Plan: * K in the ED 2.6 * Replacement given * Currently 3.5 * 40mEq PO once, repeated * Mag 1.6 * Replacement given for mag (2) Acute UTI: Code(s): N39.0 - Urinary tract infection, site not specified Status: Acute Assessment and Plan: * UA does appear to be infectious cloudy, 3+ leukocyte esterase, >75 WBC, 4+ bacteria, heavy mucous * Continue cefepime per culture sensitivities for a total of 10 doses * WBC 6.4 * Cultures grew Citrobacter freundii * Trend urine output * Wonder if this is related to retention * Bladder scan PRN (3) BPH (benign prostatic hyperplasia): Code(s): N40.0 - Benign prostatic hyperplasia without lower urinary tract symptoms Status: Acute Assessment and Plan: * Could be the reason for the frequent UTIs * PRV was 171 * Trend urine output * Continue tamsulosin * CT of the abd ordered, however, patient refused due to close quarters * Urology consulted * Voiding trial sucessful (4) Anemia: Code(s): D64.9 - Anemia, unspecified Status: Acute Assessment and Plan: * H/H is 13.1/41.8 * Continue home ferrous sulfate * Appears to be stable at this time * Continue to trend H/H * adjust therapy as indicated (5) CHF (congestive heart failure): Qualifiers: Heart failure chronicity: chronic Heart failure type: unspecified Qualified Code(s): I50.9 - Heart failure, unspecified Code(s): I50.9 - Heart failure, unspecified Status: Acute Assessment and Plan: * Seems to have chronic systolic heart failure appears not in exacerbation * Trend urine output * Daily weights * BNP 391 * 3+ pitting edema on the right leg and 1+ on the left leg * Echo showed a reduced EF of 40-45% and a normal diastolic function (6) Hyperlipidemia: Code(s): E78.5 - Hyperlipidemia, unspecified Status: Acute Assessment and Plan: * continue with heart healthy diet (7) Hypertension: Code(s): I10 - Essential (primary) hypertension Status: Acute Assessment and Plan: * BP is 102/59 * Seems to have some hypotension as well * Hold HCTZ, decrease metoprolol to twice a day * Trend BP * Adjust therapy as indicate Time Spent With Patient Time with patient: Greater than 35 minutes Subjective Date/time seen: 06/02/22 0900 Interval history: 06/02/22 0900 Patient looks to be comfortable today. Patient stated that he has been working with therapy and is eager to do more. Currently remains on IV antibiotics due to his UTI and severe weakness. Awaiting insurance for auth at this time. He denies any chest pain, shortness of breath, nasuea, vomiting, 06/01/22 1045 Patient is doing ok. He denies any chest pain, shortness of breath, nausea, vomiting, diarrhea, or constipation. He did state that he is still feeling fairly weak. He also wanted to know if he can do some exercises today. Nursing stated that he did walk in the room with her, he just is weak getting to a standing position. 05/31/22 1000 patient stated that he is doing okay today. He is stil
--- NOTE | 2022-06-02 10:15 | PM.IMPN ---
Progress Note: A&P Assessment and Plan (1) Acute hypokalemia: Code(s): E87.6 - Hypokalemia Status: Acute Assessment and Plan: K in the ED 2.6 Replacement given Currently 3.5 40mEq PO once, repeated Mag 1.6 Replacement given for mag (2) Acute UTI: Code(s): N39.0 - Urinary tract infection, site not specified Status: Acute Assessment and Plan: UA does appear to be infectious cloudy, 3+ leukocyte esterase, >75 WBC, 4+ bacteria, heavy mucous Continue cefepime per culture sensitivities for a total of 10 doses WBC 6.4 Cultures grew Citrobacter freundii Trend urine output Wonder if this is related to retention Bladder scan PRN (3) BPH (benign prostatic hyperplasia): Code(s): N40.0 - Benign prostatic hyperplasia without lower urinary tract symptoms Status: Acute Assessment and Plan: Could be the reason for the frequent UTIs PRV was 171 Trend urine output Continue tamsulosin CT of the abd ordered, however, patient refused due to close quarters Urology consulted Voiding trial sucessful (4) Anemia: Code(s): D64.9 - Anemia, unspecified Status: Acute Assessment and Plan: H/H is 13.1/41.8 Continue home ferrous sulfate Appears to be stable at this time Continue to trend H/H adjust therapy as indicated (5) CHF (congestive heart failure): Qualifiers: Heart failure chronicity: chronic Heart failure type: unspecified Qualified Code(s): I50.9 - Heart failure, unspecified Code(s): I50.9 - Heart failure, unspecified Status: Acute Assessment and Plan: Seems to have chronic systolic heart failure appears not in exacerbation Trend urine output Daily weights BNP 391 3+ pitting edema on the right leg and 1+ on the left leg Echo showed a reduced EF of 40-45% and a normal diastolic function (6) Hyperlipidemia: Code(s): E78.5 - Hyperlipidemia, unspecified Status: Acute Assessment and Plan: continue with heart healthy diet (7) Hypertension: Code(s): I10 - Essential (primary) hypertension Status: Acute Assessment and Plan: BP is 102/59 Seems to have some hypotension as well Hold HCTZ, decrease metoprolol to twice a day Trend BP Adjust therapy as indicate Time Spent With Patient Time with patient: Greater than 35 minutes Subjective Date/time seen: 06/02/22 0900 Interval history: 06/02/22 0900 Patient looks to be comfortable today. Patient stated that he has been working with therapy and is eager to do more. Currently remains on IV antibiotics due to his UTI and severe weakness. Awaiting insurance for auth at this time. He denies any chest pain, shortness of breath, nasuea, vomiting, 06/01/22 1045 Patient is doing ok. He denies any chest pain, shortness of breath, nausea, vomiting, diarrhea, or constipation. He did state that he is still feeling fairly weak. He also wanted to know if he can do some exercises today. Nursing stated that he did walk in the room with her, he just is weak getting to a standing position. 05/31/22 1000 patient stated that he is doing okay today. He is still having some severe back pain. He also stated that he is still having some weakness. He denies any chest pain, shortness a breath, nausea, vomiting, diarrhea, constipation, weakness or fatigue. Talked to the nurse about get the patient out of bed. He stated that once he gets the walker under him that he feels like he can do it. 05/30/22 1030 Patient was sitting in the chair. Patient seems to be a little disgruntled due to the fact that he was in the chair for 10 hours. I talked to PT and has not a call me when they get him back in the bed. Currently he is doing okay fluids were started overnight due to to low urine output. He was also com
[2022-06-02] MEDS: traMADol HCL (*CRX) 50 MG TABLET PO ×2 (13:21→20:30)
[2022-06-02] MEDS: WARFARIN (*PBKC) 3 MG TABLET BY MOUTH (18:32)
--- NOTE | 2022-06-02 23:55 | PM.EVENT ---
Event Note Event Note Event Note: I received a call from the patient's nurse. He was in the process of being discharged to rehab and while transferring to the stretcher his left knee gave out and he sat down on his buttocks. He transfers and pivots with his right leg and he tells me that he ?got cocky? and he must of put some weight on the left leg as his left knee gave out. It does not sound as though he actually fell but was instead helped to the ground. He sustained no injuries and there was no loss of consciousness. Orthostatic vital signs were unremarkable. The patient had no complaints of lightheadedness, dizziness, focal weakness, paresthesias, chest pain, or shortness of breath. According to PT note today, he was progressing as expected with minimal collections assistant bed and with short distances. We attempted to get the patient out of bed this evening and he required 2 person assist. He is not ready to go to rehab this evening in this condition and discharge will be canceled. Re-evaluate with PT in a.m.
[2022-06-03] VITALS (12 sets, daily range): BP systolic 116–144; BP diastolic 72–98; PULSE 67–104; RESP 16–20; TEMP 35.7–36.6; O2SAT 96–100
[2022-06-03 05:43] LABS: Basophils Absolute Auto 0.1 K/mm3 (0.0-0.1); Basophils Percent Auto 0.8 % (0.2-1.2); Eosinophils Absolute Auto 0.5 K/mm3 (0-0.3); Eosinophils Percent Auto 8.2 % (0-4.4); Hematocrit 41.2 % (42.0-52.0); Immature Granulocyte Absolute 0.01 K/mm3 (0.00-0.031); Immature Granulocyte Percent A 0.2 % (0-0.5); Lymphocytes Absolute Auto 2.14 K/mm3 (0.9-3.2); Lymphocytes Percent Auto 33.8 % (18.3-44.2); Mean Corpuscular HGB Conc 31.6 g/dl (32-36); Mean Corpuscular Hemoglobin 31.9 pg (26-34); Mean Corpuscular Volume 101.2 fl (80-100); Mean Platelet Volume 10.5 fl (7.4-10.4); Monocytes Absolute Auto 0.6 K/mm3 (0.1-0.6); Monocytes Percent Auto 10.1 % (2.6-8.5); Neutrophils Percent Auto 46.9 % (45.5-73.1); Platelet Count Result 209 k/mm3 (150-375); Red Blood Count 4.07 M/mm3 (4.6-6.20); Red Cell Distribution Width 14.6 % (11.5-14.5); White Blood Count 6.3 K/mm3 (4.5-10.0)
[2022-06-03 05:56] LABS: INR 1.9; Prothrombin Time 21.2 Seconds (11.1-14.7)
[2022-06-03 05:57] LABS: Partial Thromboplastin Time 34.5 SECONDS (22.3-36.8)
[2022-06-03 06:02] LABS: Alanine Aminotransferase 22 U/L (6-50); Alkaline Phosphatase 75 U/L (38-126); Anion Gap 6 mmol/L (8-16); Aspartate Amino Transferase 24 U/L (17-59); Bilirubin,Total 0.6 mg/dL (0.2-1.3); Blood Urea Nitrogen 14 mg/dL (9-20); Carbon Dioxide 27 mmol/L (22-30); Chloride 105 mmol/L (98-107); Estimated CRCL calculation 77 ml/min; Estimated Glomerular Filt Rate > 60; Glucose 87 mg/dL (65-110); Magnesium 2.2 mg/dL (1.6-2.3); Sodium 138 mmol/L (137-145)
--- NOTE | 2022-06-03 09:00 | PM.DS ---
DS: Admitting Diagnosis Discharge Date 06/03/22 0900 Admitting Diagnosis Hypokalemia, UTI, Urinary retention DS: Discharge Diagnosis Discharge Diagnosis (1) Acute hypokalemia: Code(s): E87.6 - Hypokalemia Status: Resolved Assessment and Plan: K in the ED 2.6 Replacement given Currently 4.0 Mag 2.2 (2) Acute UTI: Code(s): N39.0 - Urinary tract infection, site not specified Status: Acute Assessment and Plan: UA does appear to be infectious cloudy, 3+ leukocyte esterase, >75 WBC, 4+ bacteria, heavy mucous Continue cefepime per culture sensitivities for a total of 10 doses WBC 6.3 Cultures grew Citrobacter freundii Trend urine output Wonder if this is related to retention Bladder scan PRN (3) BPH (benign prostatic hyperplasia): Code(s): N40.0 - Benign prostatic hyperplasia without lower urinary tract symptoms Status: Chronic Assessment and Plan: Could be the reason for the frequent UTIs PRV was 171 Trend urine output Continue tamsulosin CT of the abd ordered, however, patient refused due to close quarters Urology consulted Voiding trial sucessful (4) Anemia: Code(s): D64.9 - Anemia, unspecified Status: Chronic Assessment and Plan: H/H is 13.0/41.2 Continue home ferrous sulfate Appears to be stable at this time Continue to trend H/H adjust therapy as indicated (5) CHF (congestive heart failure): Qualifiers: Heart failure chronicity: chronic Heart failure type: unspecified Qualified Code(s): I50.9 - Heart failure, unspecified Code(s): I50.9 - Heart failure, unspecified Status: Chronic Assessment and Plan: Seems to have chronic systolic heart failure appears not in exacerbation Trend urine output Daily weights BNP 391 3+ pitting edema on the right leg and 1+ on the left leg Echo showed a reduced EF of 40-45% and a normal diastolic function (6) Hyperlipidemia: Code(s): E78.5 - Hyperlipidemia, unspecified Status: Chronic Assessment and Plan: continue with heart healthy diet (7) Hypertension: Code(s): I10 - Essential (primary) hypertension Status: Chronic Assessment and Plan: BP is 125/84 Seems to have some hypotension as well Hold HCTZ, decrease metoprolol to twice a day Trend BP Adjust therapy as indicate DS: Summary Hospital Course Hospital Course: Patient is 62-year-old male with a past medical history femur fracture with repair, AFib, hyperlipidemia, hypothyroidism who presented to the ED with complaints of severe weakness with lethargy. Upon arrival patient was noted to have hypokalemia with a K of 2.6. UA was drawn and did show infection and urine culture grew Citrobacter freundii. Post residual void did confirm urinary retention and patient was complaining of urgency and frequency. Patient does have a noted anemia H&H has remained stable throughout the entire visit. Anemia labs were drawn however seems stable and ferrous sulfate was continued per home. Patient does have unilateral edema and BNP was 391. Repeat echo did show an EF of 40-45% with normal diastolic dysfunction. Blood pressures remained stable throughout the entire visit. Metoprolol was decreased due to hypotension upon arrival. Patient was placed on IV cefepime for his UTI. Patient with PT and OT due to severe weakness and hip repair. Patient has showed an improvement with mobility. Patient is eager to work with PT and OT and is wanting further support. Currently patient is stable for discharge. Labs and vital signs remained stable. Patient denies any chest pain, shortness a breath, nausea, vomiting, diarrhea, constipation, fatigue. Patient does have some notable weakness especially with rising from a seated position. Patient has been able to walk
--- NOTE | 2022-06-03 09:00 | P.DS_ITS ---
DS: Admitting Diagnosis Discharge Date 06/03/22 0900 Admitting Diagnosis Hypokalemia, UTI, Urinary retention DS: Discharge Diagnosis Discharge Diagnosis (1) Acute hypokalemia: Code(s): E87.6 - Hypokalemia Status: Resolved Assessment and Plan: * K in the ED 2.6 * Replacement given * Currently 4.0 * Mag 2.2 (2) Acute UTI: Code(s): N39.0 - Urinary tract infection, site not specified Status: Acute Assessment and Plan: * UA does appear to be infectious cloudy, 3+ leukocyte esterase, >75 WBC, 4+ bacteria, heavy mucous * Continue cefepime per culture sensitivities for a total of 10 doses * WBC 6.3 * Cultures grew Citrobacter freundii * Trend urine output * Wonder if this is related to retention * Bladder scan PRN (3) BPH (benign prostatic hyperplasia): Code(s): N40.0 - Benign prostatic hyperplasia without lower urinary tract symptoms Status: Chronic Assessment and Plan: * Could be the reason for the frequent UTIs * PRV was 171 * Trend urine output * Continue tamsulosin * CT of the abd ordered, however, patient refused due to close quarters * Urology consulted * Voiding trial sucessful (4) Anemia: Code(s): D64.9 - Anemia, unspecified Status: Chronic Assessment and Plan: * H/H is 13.0/41.2 * Continue home ferrous sulfate * Appears to be stable at this time * Continue to trend H/H * adjust therapy as indicated (5) CHF (congestive heart failure): Qualifiers: Heart failure chronicity: chronic Heart failure type: unspecified Qualified Code(s): I50.9 - Heart failure, unspecified Code(s): I50.9 - Heart failure, unspecified Status: Chronic Assessment and Plan: * Seems to have chronic systolic heart failure appears not in exacerbation * Trend urine output * Daily weights * BNP 391 * 3+ pitting edema on the right leg and 1+ on the left leg * Echo showed a reduced EF of 40-45% and a normal diastolic function (6) Hyperlipidemia: Code(s): E78.5 - Hyperlipidemia, unspecified Status: Chronic Assessment and Plan: * continue with heart healthy diet (7) Hypertension: Code(s): I10 - Essential (primary) hypertension Status: Chronic Assessment and Plan: * BP is 125/84 * Seems to have some hypotension as well * Hold HCTZ, decrease metoprolol to twice a day * Trend BP * Adjust therapy as indicate DS: Summary Hospital Course Hospital Course: Patient is 62-year-old male with a past medical history femur fracture with repair, AFib, hyperlipidemia, hypothyroidism who presented to the ED with complaints of severe weakness with lethargy. Upon arrival patient was noted to have hypokalemia with a K of 2.6. UA was drawn and did show infection and urine culture grew Citrobacter freundii. Post residual void did confirm urinary retention and patient was complaining of urgency and frequency. Patient does have a noted anemia H&H has remained stable throughout the entire visit. Anemia labs were drawn however seems stable and ferrous sulfate was continued per home. Patient does have unilateral edema and BNP was 391. Repeat echo did show an EF of 40-45% with normal diastolic dysfunction. Blood pressures remained stable thro
[2022-06-03] MEDS: MIDODRINE HCL 2.5 MG TABLET PO ×3 (09:02→16:44)
[2022-06-03] MEDS: SENNA/DOCUSATE SODIUM TABLET 2 TAB PO ×2 (09:02→16:44)
[2022-06-03] MEDS: METOPROLOL TARTRATE 25 MG TABLET PO ×2 (09:03→20:32)
[2022-06-03] MEDS: allopurinoL 100 MG TABLET PO (09:03)
[2022-06-03] MEDS: TAMSULOSIN HCL 0.4 MG CAPSULE PO (09:04)
[2022-06-03] MEDS: CYANOCOBALAMIN 1,000 MCG TABLET 1000 MCG PO (09:04)
[2022-06-03] MEDS: FERROUS SULFATE 324 MG TABLET PO ×2 (09:04→16:44)
[2022-06-03] MEDS: WARFARIN (*PBKC) 3 MG TABLET BY MOUTH (16:44)
[2022-06-03 17:57] LABS: EDCOVIDSCREEN Negative (Negative)
--- NOTE | 2022-06-03 19:51 | PC.NURSE ---
Upon shift change, EMS arrived to transport patient. While EMS was transferring the patient, the patient's legs gave out and they assisted the patient to the ground. A crew was assembled to use a maximove to get the patient back to the bed. Post fall protocol was initiated. The patient is back in bed, zone 2, family has been notified and is awaiting the next course of action. May remain in the hospital for the duration of another evening.
[2022-06-03] MEDS: traMADol HCL (*CRX) 50 MG TABLET PO (20:32)
[2022-06-03] MEDS: MECLIZINE HCL 25 MG TABLET PO (20:32)
[2022-06-04 03:54] VITALS: BP 101/70; PULSE 73; RESP 17; TEMP 36.4; O2SAT 99
[2022-06-04] MEDS: FERROUS SULFATE 324 MG TABLET PO (09:28)
[2022-06-04] MEDS: MIDODRINE HCL 2.5 MG TABLET PO ×2 (09:28→13:12)
[2022-06-04] MEDS: allopurinoL 100 MG TABLET PO (09:28)
[2022-06-04] MEDS: CYANOCOBALAMIN 1,000 MCG TABLET 1000 MCG PO (09:28)
[2022-06-04 09:29] VITALS: PULSE 86
[2022-06-04] MEDS: SENNA/DOCUSATE SODIUM TABLET 2 TAB PO (09:29)
[2022-06-04] MEDS: TAMSULOSIN HCL 0.4 MG CAPSULE PO (09:29)
[2022-06-04] MEDS: METOPROLOL TARTRATE 25 MG TABLET PO (09:29)
--- NOTE | 2022-06-04 09:55 | P.DS_ITS ---
DS: Admitting Diagnosis Discharge Date 06/04/2022 Admitting Diagnosis Hypokalemia, UTI and urinary retention DS: Discharge Diagnosis Discharge Diagnosis (1) Acute hypokalemia: Code(s): E87.6 - Hypokalemia Status: Resolved Assessment and Plan: * K in the ED 2.6 * Replacement given * Currently 4.0 * Mag 2.2 * resolved (2) Acute UTI: Code(s): N39.0 - Urinary tract infection, site not specified Status: Acute Assessment and Plan: * UA does appear to be infectious cloudy, 3+ leukocyte esterase, >75 WBC, 4+ bacteria, heavy mucous * Continue cefepime per culture sensitivities for a total of 10 doses * WBC 6.3 * Cultures grew Citrobacter freundii * Trend urine output * Wonder if this is related to retention * Bladder scan PRN * Bactrim DS for 2 more days. (3) BPH (benign prostatic hyperplasia): Code(s): N40.0 - Benign prostatic hyperplasia without lower urinary tract symptoms Status: Chronic Assessment and Plan: * Could be the reason for the frequent UTIs * PRV was 171 * Trend urine output * Continue tamsulosin * CT of the abd ordered, however, patient refused due to close quarters * Urology consulted * Voiding trial successful (4) Anemia: Code(s): D64.9 - Anemia, unspecified Status: Chronic Assessment and Plan: * H/H is 13.0/41.2 * Continue home ferrous sulfate * Appears to be stable at this time * Continue to trend H/H * adjust therapy as indicated * stable at time of discharge (5) CHF (congestive heart failure): Qualifiers: Heart failure type: unspecified Heart failure chronicity: chronic Qualified Code(s): I50.9 - Heart failure, unspecified Code(s): I50.9 - Heart failure, unspecified Status: Chronic Assessment and Plan: * Seems to have chronic systolic heart failure appears not in exacerbation * Trend urine output * Daily weights * BNP 391 * 3+ pitting edema on the right leg and 1+ on the left leg * Echo showed a reduced EF of 40-45% and a normal diastolic function (6) Hyperlipidemia: Code(s): E78.5 - Hyperlipidemia, unspecified Status: Chronic Assessment and Plan: * continue with heart healthy diet (7) Hypertension: Code(s): I10 - Essential (primary) hypertension Status: Chronic Assessment and Plan: * BP is 125/84 * Seems to have some hypotension as well * Hold HCTZ, decrease metoprolol to twice a day * Trend BP * Adjust therapy as indicate * stable for discharge home with continued holding of HCTZ and reduction of metoprolol to twice daily. DS: Summary Hospital Course Reason for hospitalization: Weakness and lethargy Hospital Course: Patient is 62-year-old male with a past medical history femur fracture with repair, AFib, hyperlipidemia, hypothyroidism who presented to the ED with complaints of severe weakness with lethargy.? Upon arrival patient was noted to have hypokalemia with a K of 2.6.? UA was drawn and did show infection and urine culture grew Citrobacter freundii.? Post residual void did confirm urinary retention and patient was complaining of urgency and frequency.? Patient does have a noted anemia H&H has remained stable throughout the entire visit.? Anemia labs were drawn however seems stable and ferrous sulfate was continued per home.? Patient does have unilateral edema and BNP was 391.? Repeat echo did show an EF of 40-45% with normal diastolic dysfunction.? Blood pressures re
--- NOTE | 2022-06-04 09:55 | PM.DS ---
DS: Admitting Diagnosis Discharge Date 06/04/2022 Admitting Diagnosis Hypokalemia, UTI and urinary retention DS: Discharge Diagnosis Discharge Diagnosis (1) Acute hypokalemia: Code(s): E87.6 - Hypokalemia Status: Resolved Assessment and Plan: K in the ED 2.6 Replacement given Currently 4.0 Mag 2.2 resolved (2) Acute UTI: Code(s): N39.0 - Urinary tract infection, site not specified Status: Acute Assessment and Plan: UA does appear to be infectious cloudy, 3+ leukocyte esterase, >75 WBC, 4+ bacteria, heavy mucous Continue cefepime per culture sensitivities for a total of 10 doses WBC 6.3 Cultures grew Citrobacter freundii Trend urine output Wonder if this is related to retention Bladder scan PRN Bactrim DS for 2 more days. (3) BPH (benign prostatic hyperplasia): Code(s): N40.0 - Benign prostatic hyperplasia without lower urinary tract symptoms Status: Chronic Assessment and Plan: Could be the reason for the frequent UTIs PRV was 171 Trend urine output Continue tamsulosin CT of the abd ordered, however, patient refused due to close quarters Urology consulted Voiding trial successful (4) Anemia: Code(s): D64.9 - Anemia, unspecified Status: Chronic Assessment and Plan: H/H is 13.0/41.2 Continue home ferrous sulfate Appears to be stable at this time Continue to trend H/H adjust therapy as indicated stable at time of discharge (5) CHF (congestive heart failure): Qualifiers: Heart failure type: unspecified Heart failure chronicity: chronic Qualified Code(s): I50.9 - Heart failure, unspecified Code(s): I50.9 - Heart failure, unspecified Status: Chronic Assessment and Plan: Seems to have chronic systolic heart failure appears not in exacerbation Trend urine output Daily weights BNP 391 3+ pitting edema on the right leg and 1+ on the left leg Echo showed a reduced EF of 40-45% and a normal diastolic function (6) Hyperlipidemia: Code(s): E78.5 - Hyperlipidemia, unspecified Status: Chronic Assessment and Plan: continue with heart healthy diet (7) Hypertension: Code(s): I10 - Essential (primary) hypertension Status: Chronic Assessment and Plan: BP is 125/84 Seems to have some hypotension as well Hold HCTZ, decrease metoprolol to twice a day Trend BP Adjust therapy as indicate stable for discharge home with continued holding of HCTZ and reduction of metoprolol to twice daily. DS: Summary Hospital Course Reason for hospitalization: Weakness and lethargy Hospital Course: Patient is 62-year-old male with a past medical history femur fracture with repair, AFib, hyperlipidemia, hypothyroidism who presented to the ED with complaints of severe weakness with lethargy.? Upon arrival patient was noted to have hypokalemia with a K of 2.6.? UA was drawn and did show infection and urine culture grew Citrobacter freundii.? Post residual void did confirm urinary retention and patient was complaining of urgency and frequency.? Patient does have a noted anemia H&H has remained stable throughout the entire visit.? Anemia labs were drawn however seems stable and ferrous sulfate was continued per home.? Patient does have unilateral edema and BNP was 391.? Repeat echo did show an EF of 40-45% with normal diastolic dysfunction.? Blood pressures remained stable throughout the entire visit.? Metoprolol was decreased due to hypotension upon arrival.? Patient was placed on IV cefepime for his UTI.? Patient with PT and OT due to severe weakness and hip repair.? Patient has showed an improvement with mobility.? Patient is eager to work with PT and OT and is wanting further support.? Currently patient is stable for discharge.? Labs and vital signs remained stable.? Patient denies any chest pain, shortness a breath, nausea, vomiting,
[2022-06-04 14:00] VITALS: BP 117/85; PULSE 77; RESP 16; TEMP 36.1
== END 2022-06-04 17:04 | DRG 690 ==
LOC: ANHED 15:13 → ANH3MEDSUR 18:11 → ANH2MED 23:31
PROVIDERS: Nurse Practitioner; Admitting Provider Family Medicine; Emergency Provider Emergency Medicine; PCP Emergency Medicine; Visit Provider Nurse Practitioner Adult Health
DX: N39.0 Urinary tract infection, site not specified (principal); I13.0 Hypertensive heart and chronic kidney disease with heart failure and stage 1 through stage 4 chronic kidney disease, or unspecified chronic kidney disease; I50.22 Chronic systolic (congestive) heart failure; N18.9 Chronic kidney disease, unspecified; B96.89 Other specified bacterial agents as the cause of diseases classified elsewhere; I48.91 Unspecified atrial fibrillation; E87.6 Hypokalemia; N40.0 Benign prostatic hyperplasia without lower urinary tract symptoms; E03.9 Hypothyroidism, unspecified; D64.9 Anemia, unspecified; H81.10 Benign paroxysmal vertigo, unspecified ear; M10.9 Gout, unspecified; E78.5 Hyperlipidemia, unspecified; Z20.822 Contact with and (suspected) exposure to COVID-19; Z79.01 Long term (current) use of anticoagulants; Z79.899 Other long term (current) drug therapy; Z87.891 Personal history of nicotine dependence
CPT/HCPCS: 36415; 71045; 74018; 80048; 80053; 81001; 82565; 83605; 83615; 83735; 83880; 84132; 84439; 84443; 84480; 85025; 85610; 85730; 86140; 87040; 87077; 87086; 87088; 87186; 87426; 93005; 93970; 96361; 96365; 96366; 96367; 96375; 97110; 97161; 97166; 97530; 97535; 99285; A9270; C8929; C9803; G0378; J0692; J0696; J3370; J3475; J3480; J7030; J7040; Q9957

== ENCOUNTER 2025-03-31 04:18 | Emergency (ER) | payer OTHER, SELFPAY ==
--- NOTE | ~2025-03-31 | XR_ITS ---
EXAM/ PROCEDURE: XR tibia fibula LT 2V - 03/31/2025 4:45 CDT HISTORY: 74 years old Male with hematoma COMPARISON: None available TECHNIQUE: Four view(s) FINDINGS/ IMPRESSION: There are no fractures or dislocations.Joint space narrowing, subchondral sclerosis, subchondral cyst formation and osteophyte formation, compatible with mild osteoarthritis. Partially visualized ORIF in the distal femur. Reviewed, dictated and finalized at location N.
[2025-03-31 04:16] VITALS: BP 145/90; PULSE 98; RESP 19; TEMP 36.3; O2SAT 98
[2025-03-31 04:25] VITALS: BP 145/90; PULSE 95; RESP 16; TEMP 36.3; O2SAT 98
--- OUTSIDE RECORDS SUMMARY | 2025-03-31 04:37 | XMS_ITS | Clinical Summary ---
Author Organization [facility] Address [address] [place] [id number] Care Team Providers Care Tire Room Supervisor Name Role Phone Unavailable Primary Care Provider Unavailabl e Encounters Date Type Department Care Team Description 03/14/2025 External Device Data [facility] Provider, Abstract 02/28/2025 External Device Data [facility] Provider, Abstract 01/10/2025 External Device Data [facility] Provider, Abstract from Last 3 Months Social History Tobacco Use Types Packs/Day Years Used Date Smoking Tobacco: Never Assessed Sex and Gender Information Value Date Recorded Sex Assigned at Not on file Legal Sex Male 7:23 PM [employer] Gender Identity Not on file Sexual Orientation Not on file Plan of Treatment Health Maintenance Due Date Last Done Comments DTAP/TDAP/TD VACCINES (1 - Tdap) 12/10/1971 COLORECTAL SCREENING 1997 Colorectal Cancer Screening 1997 FIT-DNA Q 3 years 1997 FIT/FOBT Q 1 year 1997 Flex Sig/CT Colonography Q 5 years 1997 PNEUMOCOCCAL VACCINE 50+ YEARS (1 of 1 - PCV) 12/10/19 03 ZOSTER VACCINE (1 of 2) 2002 INFLUENZA VACCINE (#1) 2025 RSV VACCINE (60+ or ) (1 - 1-dose 75+ series) 12/10/2027 Insurance [facility] PPO MCR
--- NOTE | 2025-03-31 04:42 | ED.EXTPRO ---
HPI - Extremity Problem General Chief complaint: Extremity Problem,Nontraumatic Stated complaint: pain and swelling to leg History of Present Illness HPI Narrative: Patient is a 74-year-old male who presents emergency department this evening complaining of left lower extremity swelling, pain and bruising. Patient does have a past medical history of atrial fibrillation and is on warfarin. States that yesterday he accidentally kicked his left edmond with his right foot. A few hours afterwards, patient started to develop some swelling and pain to the left calf region. Patient did sustain hematoma to his left calf. Otherwise denies any additional symptoms or concerns. EMS did administer 15 mg of Toradol and patient states that he did take a dose of tramadol around 8:00 p.m. which has helped with his pain. States that his pain is currently controlled. Related Data Allergies Allergy/AdvReac Type Severity Reaction Status Date / Time No Known Allergies Allergy Mild Verified 11/30/24 13:06 Review of Systems Review of Systems: All systems are reviewed and are negative unless stated otherwise in the HPI. [facility] Past Medical History Medical History Sinus congestion Closed hip fracture Preop cardiovascular exam Acute on chronic kidney failure Abnormal urinalysis Foot fracture, right Overgrown toenails Acute hypokalemia Acute hypokalemia Acute UTI Fatigue Screening PSA (prostate specific antigen) Dizziness Vitamin D deficiency, unspecified Sleep apnea in adult Other chronic pain Other cardiomyopathies ELIANA (obstructive sleep apnea) Obesity, Class III, BMI 40-49.9 (morbid obesity) Low blood potassium Left lateral knee pain MUNSON (dyspnea on exertion) Chronic a-fib Chest pain at rest Bilateral hip pain Atrial fibrillation with controlled ventricular response Abnormal TSH Abnormal PSA BPH (benign prostatic hyperplasia) Ankle pain, left Benign prostatic hyperplasia Chronic kidney disease Gout Hypothyroidism Hyperlipidemia Chronic anticoagulation Atrial fibrillation Hypothyroidism (acquired) HLD (hyperlipidemia) Afib Surgical History Surgical History S/P ORIF (open reduction internal fixation) fracture left femur History of transurethral resection of prostate History of tonsillectomy Family History Family History Mother Family history of cardiovascular disease Father Family history of heart disease in male family member before age 55, Onset Age: 43 Family history of cardiovascular disease Social History Social History Social History: The patient is and has 1 son. 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 Surrogate medical decision maker: Manish Quigley, son. His grandson lives with him. The patient stated that he was a former smoker. Occasionally uses alcohol. Occasional marijuana but no illicit drugs. Code status: Full code. Smoking packs per day: 2 Smoking cigarettes per day: 40.0 Years smoked: 10 Smoking pack-years: 20.00 Smoking status: Former smoker Tobacco type: cigarettes Second hand tobacco smoke exposure: Yes Alcohol intake: current Substance use: current Substance use type: marijuana Other substance usage details: MEDICAL CARD Do You Feel Safe in your Home?: Yes Lack of Transportation: No Lack of Food: Never True Current Housing: I Have Housing Concerned About Future Housing: No Difficulty Paying Gas/Electric Bills: No Difficulty Paying for Meds: No Currently Unemployed: No Education: Associate Degree Difficulty w/ Childcare or Family Care: No Living arrangements: with family Additional living arrangements comments: Lives in his own home in [place]. 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 Spiritual care concerns: No Exam Narrative: General: Alert, awake, afebrile, in no acute distress. HEENT: PERRL, no rhinorrhea, no post nasal drip, oropharynx clear. Neck: Trachea midline, no JVD, no lymphadenopathy. Cardiovascular: Regular rate and rhythm, no murmurs, rubs or gallops, no peripheral edema. Respiratory: Clear to auscultation bilaterally, no tachypnea, no wheezing, no rhonchi, no rubs, no respiratory distress. Abdomen: Soft, nontender, nondistended, no rebound, no guarding, no peritoneal signs. Musculoskeletal: No joint swelling or deformity, normal muscle tone, hematoma to the left calf region. Skin: No rashes or petechia, no signs of infection. Psychiatric: Alert and oriented, normal behavior and judgment for situation. Neurological: Alert and oriented to person, place, and time. Follows all commands. No focal deficits, speech is clear and fluent. Course Vital Signs Vital signs: Vital Signs Temperature 97.4 F L 03/31/25 04:16 Pulse Rate 98 03/31/25 04:16 Respiratory Rate 19 03/31/25 04:16 Blood Pressure 145/90 H 03/31/25 04:16 Pulse Oximetry 98 03/31/25 04:16 Temperature 97.4 F L 03/31/25 04:25 Pulse Rate 95 03/31/25 04:25 Respiratory Rate 16 03/31/25 04:25 Blood Pressure 145/90 H 03/31/25 04:25 Pulse Oximetry 98 03/31/25 04:25 MDM - Extremity (Nontraumatic) MDM Narrative Medical decision making narrative: The patient was evaluated by myself in the emergency department. History is obtained from patient who is an independent historian and physical exam was performed. External medical records were reviewed at this time. He was administered 2 mg of IV morphine for pain. Imaging studies obtained included left hip x-rays which was independently interpreted by me revealing no acute process, which is pending final radiology interpretation. Differential diagnosis considerations include hematoma, fracture, musculoskeletal injury. Comorbidities impacting this visit include anticoagulation with Coumadin. I have evaluated and discussed social determinants of health with the patient that could potentially impact subsequent diagnosis and treatment plans. On repeat assessment of the patient, reevaluation revealed that the patient is doing well and is in no acute distress. Patient symptoms have improved since he arrived to our emergency department. Repeat vital signs were all reviewed and noted to be stable. Differential diagnosis and treatment plan were discussed with the patient at bedside. Patient agrees with discussion and after shared medical decision making agrees with discharge. All questions were answered to the patient's satisfaction. Patient will follow up with his PCP in 3-5 days. Instructed that the left calf hematoma will resolve on its own with time. Patient was provided with strict return precautions and instructed to return to the emergency department if any new or worsening symptoms develop. The patient was discharged in stable condition. Discharge Plan Discharge Clinical Impression: Hematoma of left lower leg Patient Disposition: Home Condition: Improved Instructions: Antibiotic Form, Hematoma (ED) Additional Instructions: Please follow-up with the family doctor within the next 3-5 days. Return to the emergency department if any new or worsening symptoms develop. You hematoma will improve with time. Patient Language: Beninese Prescriptions: No Action metoprolol tartrate 25 mg tablet See Rx Instructions .ROUTE .COMPLEX Qty: 180 2RF Dose Instruction: TAKE 1 TABLET BY MOUTH EVERY 12 HOURS Rx Instructions: TAKE 1 TABLET BY MOUTH EVERY 12 HOURS cholecalciferol (vitamin D3) 1,250 mcg (50,000 unit) capsule See Rx Instructions .ROUTE .COMPLEX Qty: 12 3RF Dose Instruction: TAKE 1 CAPSULE BY MOUTH WEEKLY ON MONDAYS Rx Instructions: TAKE 1 CAPSULE BY MOUTH WEEKLY ON MONDAYS hydrochlorothiazide 12.5 mg tablet See Rx Instructions .ROUTE .COMPLEX Qty: 90 2RF Dose Instruction: TAKE 1 TABLET BY MOUTH EVERY DAY Rx Instructions: TAKE 1 TABLET BY MOUTH EVERY DAY tamsulosin 0.4 mg capsule See Rx Instructions .ROUTE .COMPLEX Qty: 90 2RF Dose Instruction: TAKE 1 CAPSULE BY MOUTH EVERY DAY Rx Instructions: TAKE 1 CAPSULE BY MOUTH EVERY DAY meclizine 25 mg tablet See Rx Instructions .ROUTE .COMPLEX Qty: 90 2RF Dose Instruction: TAKE 1 TABLET BY MOUTH EVERY DAY NEEDED FOR DIZZINESS Rx Instructions: TAKE 1 TABLET BY MOUTH EVERY DAY NEEDED FOR DIZZINESS allopurinol 100 mg tablet See Rx Instructions .ROUTE .COMPLEX Qty: 90 2RF Dose Instruction: TAKE 1 TABLET BY MOUTH EVERY DAY Rx Instructions: TAKE 1 TABLET BY MOUTH EVERY DAY tramadol 50 mg tablet 50 mg PO Q6H PRN (Reason: pain) Qty: 60 1RF warfarin 3 mg tablet See Rx Instructions .ROUTE .COMPLEX Qty: 90 2RF Dose Instruction: TAKE 1 TABLET BY MOUTH EVERY DAY Rx Instructions: TAKE 1 TABLET BY MOUTH EVERY DAY Follow-up/Referrals: Amador Hernandez DO [Physician, Family Practice] - 3 Days PHYSICIAN,[employer] WORK[employer] [Primary Care Provider, Internal Medicine] Time of Disposition: 04:44
[2025-03-31] MEDS: MORPHINE SULFATE (*CRX) 2 MG/ML INJ IV PUSH (05:54)
== END 2025-03-31 06:00 | disposition home or self-care (01) ==
PROVIDERS: Emergency Provider Emergency Medicine
DX: S80.12XA Contusion of left lower leg, initial encounter (principal); N18.9 Chronic kidney disease, unspecified; I48.20 Chronic atrial fibrillation, unspecified; E78.5 Hyperlipidemia, unspecified; E03.9 Hypothyroidism, unspecified; E55.9 Vitamin D deficiency, unspecified; N40.0 Benign prostatic hyperplasia without lower urinary tract symptoms; G47.33 Obstructive sleep apnea (adult) (pediatric); M10.9 Gout, unspecified; Z87.440 Personal history of urinary (tract) infections; Z87.891 Personal history of nicotine dependence; Z79.01 Long term (current) use of anticoagulants; Z79.899 Other long term (current) drug therapy; W22.8XXA Striking against or struck by other objects, initial encounter
CPT/HCPCS: 73590; 96374; 99284; J2270

== ENCOUNTER 2025-04-01 19:16 | Inpatient (IN) | payer OTHER, SELFPAY ==
--- OUTSIDE RECORDS SUMMARY | 2009-06-12 04:00 | XMS_ITS | Continuity of Care Document ---
Author Organization [facility] Address [address] [place] [address] Phone Care Team Providers Care Polymerization Supervisor Name Role Phone Ben Dejesushil Unavailable Unavailable Procedures Procedure Date Eye Exam & Treatment Refraction Advance Directives Directive Yes / No Effective Date File Name No Information Encounters Encounter Description Practice Location Reason(s) For Visit Diagnoses Date Provider Providers Copied on Encounter [facility], [address], [place], [place], [id number], [place] tel:[phone] [facility] No Information [address], [place], [address], [place]. tel:[phone] Referring Provider: Henry Houser [address], [place], [place], [facility] [place]. tel:[phone] Family History Family Member Type Diagnosis Age At Onset No Information Payers Payer name Insurance type Covered republican ID Authoriza tion(s) Medicaid COUNTS INCLUDE 234 [facility]S AT [facility] [id number] Social History Type Description Quantity Date Captured Comments Sex Male Smoking Status No Information Chief Complaint And Reason For Visit No Information Reason For Referral Reason For Referral No Information History Of Present Illness Encounter Date Complaint History Of Prese nt Illness No Information Functional Status Date Functional Assessmen t No Information Instructions Date Instruction Additional Infor mation No Information Assessments Type Assessment Date No Information Patient Care Teams Name Effective Dates (start - stop) Status Members No Information
--- NOTE | ~2025-04-01 | XR_ITS ---
EXAMINATION: XR chest 1V portable, 04/01/2025 19:49 CDT HISTORY: syncope COMPARISON: No comparisons available. Technique: Single view. Findings: Mild pulmonary venous congestion. Small left lower lobe infiltrate. No pneumothorax. Moderate cardiomegaly. Mediastinal and hilar contours are within normal limits. Bony thorax no acute abnormality. Impression: CHF. Early left lower lobe pneumonia Reviewed, dictated and finalized at location A. Impression: CHF. Early left lower lobe pneumonia
--- NOTE | ~2025-04-01 | CT_ITS ---
EXAMINATION: CT brain mary mckenna, 04/01/2025 19:32 CDT HISTORY: fall, trauma COMPARISON: No comparisons available. Technique: Axial images obtained of the brain without contrast. One or more of the following dose reduction techniques were used: automated exposure control, adjustment of the mA and/or kV according to patient size, use of iterative reconstruction technique. Findings: No acute infarct or parenchymal hemorrhage. No abnormal mass or mass effect. No midline shift. No extra-axial fluid collections. No hydrocephalus. Mastoid air cells unremarkable. Sinuses and orbits unremarkable. No acute fracture. No significant facial or scalp soft tissue swelling evident. No radiopaque foreign body is seen. Impression: 1.No acute intracranial abnormality. Reviewed, dictated and finalized at location A. Impression: 1.No acute intracranial abnormality.
--- NOTE | ~2025-04-01 | CT_ITS ---
EXAMINATION: CT diagnostic chest wo clarisa, 04/02/2025 8:10 CDT HISTORY: large mediastinum, pneumonia COMPARISON: No comparisons available. TECHNIQUE: CT scan of the chest was performed without IV contrast. One or more of the following dose reduction techniques were used: automated exposure control, adjustment of the mA and/or kV according to patient size, use of iterative reconstruction technique. FINDINGS: No significant coronary calcification is present ([id number]) LUNGS: No tracheomalacia. No bronchiectasis. Minimal emphysematous changes. Minimal pulmonary fibrotic changes. Scattered some 3 mm micronodule is noted with dominant 7 x 5 mm micronodule right lower lobe, six-month follow-up recommended. HEART AND PERICARDIUM: Within normal limits. AORTA: Normal caliber aorta. ADENOPATHY/MEDIASTINUM: None. LIMITED VIEWS OF THE ABDOMEN: Cholelithiasis. Right kidney partially imaged probable complex appearing renal cyst 5 x 6 cm incompletely characterized, outpatient ultrasound recommended. Moderate pancreatic atrophy is noted. OSSEOUS STRUCTURES: No sclerotic or lytic lesions. No acute rib fractures are identified. There are remote bilateral rib fractures identified. OVERLYING SOFT TISSUES: Unremarkable. THYROID: The thyroid is unremarkable. IMPRESSION: 1. No acute process. Incidental findings above Reviewed, dictated and finalized at location A.
--- NOTE | ~2025-04-01 | XR_ITS ---
EXAMINATION: XR femur LT min 2V, 04/02/2025 15:45 CDT HISTORY: Left femur fracture COMPARISON: No comparisons available. Findings: Fixation of the femur with comminuted fracture of the distal femur noted. No significant degenerative changes. Soft tissues unremarkable. Impression: Postsurgical changes Reviewed, dictated and finalized at location A. Impression: Postsurgical changes
--- NOTE | ~2025-04-01 | CT_ITS ---
EXAMINATION: CT LE LT wo con COMPARISON: None HISTORY: left lower extremity TECHNIQUE: Axial images were obtained without IV contrast. Sagittal, coronal reconstruction images were obtained from the axial views. CT scan performed using dose optimization techniques including the following automated exposure control; adjustment of mA and/or kV; use of iterative reconstruction technique. Automatic exposure control was used to reduce radiation dose. Permanent radiation dose record is archived to PACS. FINDINGS: There is diffuse stranding within the subcutaneous tissues especially along the medial aspect with a resolved subcutaneous hemorrhage noted within scattered areas of pleural fluid collection, the largest area of hemorrhage measures 9.4 x 7 cm, absence of contrast limits evaluation for active bleeding. There is severe atrophy of the musculature. There is intramuscular hemorrhage noted along the anterior lateral aspect. No subcutaneous air or radiopaque foreign body is identified. There are severe tricompartmental degenerative changes of the knee with no pleural effusion identified. There are moderate degenerative changes of the ankle with no effusion identified. There is a partially imaged fracture of the distal femur with fixation of the distal femur noted, the visualized hardware appears intact. No additional fracture or dislocation is identified. IMPRESSION: 1. Partially imaged displaced fracture of the distal femur. 2. Posttraumatic soft tissue changes with a large areas of intramuscular hemorrhage Reviewed, dictated and finalized at location A. IMPRESSION: 1. Partially imaged displaced fracture of the distal femur. 2. Posttraumatic soft tissue changes with a large areas of intramuscular hemorr mar
--- NOTE | ~2025-04-01 | US_ITS ---
EXAMINATION: US carotid duplex BI DATE: 04/02/2025 10:04 INDICATION: Syncope. Vertigo. TECHNIQUE: Grayscale, color Doppler, and pulsed Doppler images of the cervical carotid arteries were obtained. The degree of vessel stenosis is placed in one of the following categories: normal, <50%, 50-69%, >=70% but less than near- occlusion, near-occlusion, or total occlusion. Note that percent stenosis relative to normal distal artery lumen diameter is indirectly measured from velocity measurements as described by Tao, et al. Radiology 2003; 229:340-346. COMPARISON: None. FINDINGS: RIGHT: The right common carotid artery (CCA) peak systolic velocity (PSV) is 53 cm/s. The right internal carotid artery (ICA) PSV is 47 cm/s. The right ICA end- diastolic velocity (EDV) is 18 cm/s. The right ICA/CCA PSV ratio is 0.9. Grayscale and color Doppler images yield an estimate of <50% diameter reduction from minimal plaque in the ICA. The external carotid artery (ECA) PSV is 74 cm/s. There is antegrade flow in the right vertebral artery. LEFT: The left CCA PSV is 65 cm/s. The left ICA PSV is 75 cm/s. The left ICA EDV is 34 cm/s. The left ICA/CCA PSV ratio is 1.2. Grayscale and color Doppler images yield an estimate of <50% diameter reduction from minimal plaque in the ICA. The ECA PSV is 42 cm/s. There is antegrade flow in the left vertebral artery. IMPRESSION: 1. <50% stenosis from minimal plaque in the right internal carotid artery. 2. <50% stenosis from minimal plaque in the left internal carotid artery. Reviewed, dictated and finalized at location A.
--- NOTE | ~2025-04-01 | CT_ITS ---
EXAMINATION: CT cervical spine wo clarisa, 04/01/2025 19:32 CDT HISTORY: fall, trauma COMPARISON: No comparisons available. Technique: Axial images were obtained of the spine per protocol. One or more of the following dose reduction techniques were used: automated exposure control, adjustment of the mA and/or kV according to patient size, use of iterative reconstruction technique. Unless otherwise stated, incidental findings do not require dedicated follow up imaging Findings: Multiple loss of vertebral height, no fracture identified. Moderate loss of disc at C4-5 C5-6 and C6-7 with moderate canal and foraminal stenosis. Soft tissues unremarkable Impression: No acute abnormality. Reviewed, dictated and finalized at location A. Impression: No acute abnormality.
--- NOTE | ~2025-04-01 | US_ITS ---
EXAMINATION: US arterial duplex LE LT COMPARISON: No comparisons available. HISTORY: left lower leg injury TECHNIQUE: Grayscale, spectral and color Doppler imaging of the vessels of the lower extremities were performed. FINDINGS: Left: Triphasic waveforms in the common femoral and superficial femoral vessels, monophasic waveforms in the remaining vessels Velocities: (cm/s) Left: Common femoral: 64 Proximal SFA: 92 Mid SFA: 75 Distal SFA: 82 Popliteal: 60.0 Posterior tibial: 41 Dorsalis pedis: 82 IMPRESSION: Atherosclerotic changes most marked below the knee, no occlusion identified. If symptoms persist CTA recommended Reviewed, dictated and finalized at location A.
[2025-04-01 19:14] VITALS: BP 105/51; PULSE 124; RESP 18; O2SAT 94
--- NOTE | 2025-04-01 19:28 | ECG_ITS ---
Test Date: 2025-04-01 19:33:15 Measurements Intervals [place] Rate: 122 P: 0 ND: 0 QRS: 57 QRSD: 101 T: 46 QT: 336 QTc: 480 Interpretive Statements ATRIAL FIBRILLATION WITH RAPID VENTRICULAR RESPONSE WITH ABERRANT CONDUCTION OR VENTRICULAR PREMATURE COMPLEXES MODERATE ST DEPRESSION [0.05+ mV ST DEPRESSION] No previous ECG available for comparison Electronically Signed On 04-02-2025 15:52:46 CDT by Ganesh Rodriguez M.D.
--- OUTSIDE RECORDS SUMMARY | 2025-04-01 19:35 | XMS_ITS | Clinical Summary ---
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
[2025-04-01 19:53] LABS: Hematocrit 31.3 % (42.0-52.0); Hemoglobin 10.1 g/dL (14.0-18.0); Immature Granulocyte Percent A 0.9 % (0-0.5); Lymphocytes Absolute Auto 1.44 K/mm3 (0.9-3.2); Mean Corpuscular HGB Conc 32.3 g/dl (32-36); Mean Corpuscular Hemoglobin 31.9 pg (26-34); Mean Corpuscular Volume 98.7 fl (80-100); Nucleated Red Blood Cells Absolute Auto 0.000 K/mm3 (0.0-0.012); Nucleated Red Blood Cells Perc 0.0 % (0.0-0.2); Platelet Count Result 280 k/mm3 (150-375); Red Blood Count 3.17 M/mm3 (4.6-6.20); White Blood Count 20.5 K/mm3 (4.5-10.0)
[2025-04-01 20:02] LABS: Alanine Aminotransferase 21 U/L (6-50); Albumin Level 3.4 g/dL (3.5-5.1); Alkaline Phosphatase 69 U/L (38-126); Anion Gap 8 mmol/L (4-12); Aspartate Amino Transferase 31 U/L (17-59); Bilirubin,Total 0.9 mg/dL (0.2-1.3); Blood Urea Nitrogen 41 mg/dL (9-20); Calcium 9.2 mg/dL (8.4-10.2); Carbon Dioxide 27 mmol/L (22-30); Chloride 100 mmol/L (98-107); Estimated CRCL calculation 52 ml/min; Estimated Glomerular Filt Rate 41; Glucose 219 mg/dL (65-110); Magnesium 1.7 mg/dL (1.6-2.3); Potassium 3.7 mmol/L (3.4-5.0); Sodium 135 mmol/L (137-145); Total Protein 7.0 g/dL (6.3-8.2)
[2025-04-01 20:14] LABS: NT Pro B Type Natriuretic Pept 490 pg/mL (19.9-100); Troponin I < 0.012 ng/mL (0.000-0.034)
[2025-04-01 20:16] LABS: INR 3.7; Prothrombin Time 34.7 Seconds (11.1-14.7)
[2025-04-01 20:17] LABS: Partial Thromboplastin Time 67.4 Seconds (22.3-36.8)
--- NOTE | 2025-04-01 20:19 | ED.DIZZY ---
HPI - Dizziness General Chief Complaint: Syncope Stated Complaint: MULTIPLE SYNCOPAL EPISODES History of Present Illness HPI Narrative: Patient is a 74-year-old male who presents emergency department this evening status post multiple syncopal episodes. Patient did fall and hit the back of his head. He is on blood thinners, Coumadin for history of atrial fibrillation. Patient admits that he has been feeling dizzy recently, states that he does not remember passing out or falling. Patient was recently seen our facility for a left lower extremity hematoma. Currently denying any chest pain or shortness of breath. No additional symptoms or concerns at this time. Related Data Allergies Allergy/AdvReac Type Severity Reaction Status Date / Time No Known Allergies Allergy Mild Verified 11/30/24 13:06 Review of Systems Review of Systems: All systems are reviewed and are negative unless stated otherwise in the HPI. [facility] Past Medical History Medical History Sinus congestion Closed hip fracture Preop cardiovascular exam Acute on chronic kidney failure Abnormal urinalysis Foot fracture, right Overgrown toenails Acute hypokalemia Acute hypokalemia Acute UTI Fatigue Screening PSA (prostate specific antigen) Dizziness Vitamin D deficiency, unspecified Sleep apnea in adult Other chronic pain Other cardiomyopathies ELIANA (obstructive sleep apnea) Obesity, Class III, BMI 40-49.9 (morbid obesity) Low blood potassium Left lateral knee pain MUNSON (dyspnea on exertion) Chronic a-fib Chest pain at rest Bilateral hip pain Atrial fibrillation with controlled ventricular response Abnormal TSH Abnormal PSA BPH (benign prostatic hyperplasia) Ankle pain, left Benign prostatic hyperplasia Chronic kidney disease Gout Hypothyroidism Hyperlipidemia Chronic anticoagulation Atrial fibrillation Hypothyroidism (acquired) HLD (hyperlipidemia) Afib Surgical History Surgical History S/P ORIF (open reduction internal fixation) fracture left femur History of transurethral resection of prostate History of tonsillectomy Family History Family History Mother Family history of cardiovascular disease Father Family history of heart disease in male family member before age 55, Onset Age: 43 Family history of cardiovascular disease Social History Social History Social History: The patient is and has 1 son. 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 Surrogate medical decision maker: Manish Quigley, son. His grandson lives with him. The patient stated that he was a former smoker. Occasionally uses alcohol. Occasional marijuana but no illicit drugs. Code status: Full code. Smoking packs per day: 2 Smoking cigarettes per day: 40.0 Years smoked: 10 Smoking pack-years: 20.00 Smoking status: Former smoker Tobacco type: cigarettes Second hand tobacco smoke exposure: Yes Alcohol intake: current Substance use: current Substance use type: marijuana Other substance usage details: MEDICAL CARD Do You Feel Safe in your Home?: Yes Lack of Transportation: No Lack of Food: Never True Current Housing: I Have Housing Concerned About Future Housing: No Difficulty Paying Gas/Electric Bills: No Difficulty Paying for Meds: No Currently Unemployed: No Education: Associate Degree Difficulty w/ Childcare or Family Care: No Living arrangements: with family Additional living arrangements comments: Lives in his own home in [place]. 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 Spiritual care concerns: No Exam Narrative: General: Alert, awake, afebrile, in no acute distress. HEENT: PERRL, no rhinorrhea, no post nasal drip, oropharynx clear. Neck: Trachea midline, no JVD, no lymphadenopathy. Cardiovascular: Tachycardic with an irregular rhythm, no murmurs, rubs or gallops, no peripheral edema. Respiratory: Clear to auscultation bilaterally, no tachypnea, no wheezing, no rhonchi, no rubs, no respiratory distress. Abdomen: Soft, nontender, nondistended, no rebound, no guarding, no peritoneal signs. Musculoskeletal: Swelling and ecchymosis to the left lower extremity with overlying blisters containing serosanguineous fluid, there is some skin sloughing surrounding the area of a ruptured blister. Skin: No rashes or petechia, no signs of infection. Psychiatric: Alert and oriented, normal behavior and judgment for situation. Neurological: Alert and oriented to person, place, and time. Follows all commands. No focal deficits, speech is clear and fluent. Course Vital Signs Vital signs: Vital Signs Pulse Rate 124 H 04/01/25 19:14 Respiratory Rate 18 04/01/25 19:14 Blood Pressure 105/51 L 04/01/25 19:14 Pulse Oximetry 94 04/01/25 19:14 Oxygen Delivery Room Air 04/01/25 19:14 Pulse Rate 124 H 04/01/25 19:14 Respiratory Rate 18 04/01/25 19:14 Blood Pressure 105/51 L 04/01/25 19:14 Pulse Oximetry 94 04/01/25 19:14 Oxygen Delivery Room Air 04/01/25 19:14 MDM - Dizziness MDM Narrative Medical decision making narrative: The patient was evaluated by myself in the emergency department. History is obtained from patient who is an independent historian and physical exam was performed. External medical records were reviewed at this time. IV was established and pertinent tests were ordered. Patient was administered 2 L IV fluid bolus with normal saline. On repeat assessment, patient's current blood pressure is 124/86 mmHg after 2 L. Patient had an echocardiogram from 2021 revealing a good ejection fraction. EKG was obtained which revealed atrial fibrillation with RVR rate of 122 beats per minute with frequent PVCs otherwise no evidence of acute ischemia. EKG was independently interpreted by me and is currently pending official cardiology read. At this time patient was started on a Cardizem drip at a rate of 5 and maintenance fluids at a rate of 100 cc/hour. Laboratory results obtained revealing a leukocytosis of 20.5, creatinine of 1.6 which is slightly higher than patient's baseline, BNP for 90 otherwise unremarkable. Urinalysis did reveal UTI. Imaging studies obtained included CXR, CT brain and C-spine without IV contrast which was independently interpreted by me revealing no acute process in the CT brain and C-spine, left infrahilar opacity concerning for either atelectasis versus infiltrate, which is pending final radiology interpretation. Giving the patient's vital signs and leukocytosis of 20, due to concern for sepsis was started on antibiotics with IV Rocephin and azithromycin to cover for pneumonia. Differential diagnosis considerations include dehydration, electrolyte derangements, arrhythmia, AFib with RVR, intracranial hemorrhage, fractures. Comorbidities impacting this visit include history of atrial fibrillation on Coumadin. I have evaluated and discussed social determinants of health with the patient that could potentially impact subsequent diagnosis and treatment plans. On repeat assessment of the patient, reevaluation revealed that the patient is doing well and is in no acute distress. Patient symptoms have improved since he arrived to our emergency department. Repeat vital signs were all reviewed and noted to be stable. Differential diagnosis and treatment plan were discussed with the patient at bedside. Patient agrees with discussion and after shared medical decision making agrees with admission. All questions were answered to the patient's satisfaction. Case discussed with the on-call hospitalist Dr. Shanks who accepted admission. Critical care time of 87 minutes, exclusive of separately performed procedures, necessary for treating or preventing eminent or life-threatening deterioration of patient's condition of sepsis, AFib with RVR, focused on patient care provided personally by me and time spent during initial evaluation, physical examination, ordering and performing treatments and interventions, ordering and reviewing laboratory studies, ordering and reviewing radiographic studies, re-evaluation of the patient's condition, evaluation of the patient's response to treatment, and discussion of patient case with multiple consultants. Lab Data 04/01/25 19:46 04/01/25 19:46 Labs: Lab Results 04/01/25 04/01/25 04/01/25 Range/Units 19:46 21:58 22:14 WBC 20.5 H (4.5-10.0) K/mm3 RBC 3.17 L (4.6-6.20) M/mm3 Hgb 10.1 L (14.0-18.0) g/dL Hct 31.3 L (42.0-52.0) % MCV 98.7 (80-100) fl MCH 31.9 (26-34) pg MCHC 32.3 (32-36) g/dl RDW 13.7 (11.5-14.5) % Plt Count 280 (150-375) k/mm3 MPV 10.4 (7.4-10.4) fl Immature Gran % (Auto) 0.9 H (0-0.5) % Neut % (Auto) 85.2 H (45.5-73.1) % Lymph % (Auto) 7.0 L (18.3-44.2) % Daniels % (Auto) 6.3 (2.6-8.5) % Eos % (Auto) 0.2 (0-4.4) % Baso % (Auto) 0.4 (0.2-1.2) % Lymph # (Auto) 1.44 (0.9-3.2) K/mm3 Daniels # (Auto) 1.3 H (0.1-0.6) K/mm3 Eos # (Auto) 0.1 (0-0.3) K/mm3 Baso # (Auto) 0.1 (0.0-0.1) K/mm3 Abs Immat Gran (auto) 0.18 H (0.00-0.031) K/mm3 Absolute Neuts (auto) 17.4 H (1.3-6.7) K/mm3 Absolute Nucleated RBC 0.000 (0.0-0.012) K/mm3 Nucleated RBC % 0.0 (0.0-0.2) % PT 34.7 H (11.1-14.7) Seconds INR 3.7 APTT 67.4 H (22.3-36.8) Seconds Sodium 135 L (137-145) mmol/L Potassium 3.7 (3.4-5.0) mmol/L Chloride 100 (98-107) mmol/L Carbon Dioxide 27 (22-30) mmol/L Anion Gap 8 (4-12) mmol/L BUN 41 H D (9-20) mg/dL Creatinine 1.66 H (0.7-1.3) mg/dL Estim Creat Clear Calc 52 ml/min Estimated GFR 41 L (59 - ) Glucose 219 H (65-110) mg/dL Lactic Acid 1.7 (0.7-2.0) mmol/L Calcium 9.2 (8.4-10.2) mg/dL Magnesium 1.7 (1.6-2.3) mg/dL Total Bilirubin 0.9 (0.2-1.3) mg/dL AST 31 (17-59) U/L ALT 21 (6-50) U/L Alkaline Phosphatase 69 (38-126) U/L Troponin I < 0.012 (0.000-0.034) ng/mL NT-Pro-B Natriuret Pep 490 H (19.9-100) pg/mL Total Protein 7.0 (6.3-8.2) g/dL Albumin 3.4 L (3.5-5.1) g/dL Urine Color Yellow (Yellow) Urine Appearance Cloudy H (Clear) Urine pH 5.0 (5.0-9.0) Ur Specific [place] 1.022 (1.001-1.035) Urine Protein 1+ H (Negative) mg/dL Urine Glucose (UA) Negative (Negative) mg/dL Urine Ketones Negative (Negative) mg/dL Ur Blood (Man) 3+ H (Negative) Urine Nitrate Negative (Negative) Urine Bilirubin Negative (Negative) Urine Urobilinogen 1.0 (<2.0) mg/dL Add Ur Microanalysis Reviewed Leukocyte Esterase Rfl 2+ H (Negative) RUBI/UL Urine RBC 11-20 H (0-2) /hpf Urine WBC 21-50 H (0-3) /hpf Ur Squamous Epith Cells None seen (Few) /hpf Urine Bacteria None seen /hpf Urine Casts 6-10 Urine Mucus Present /lpf Critical Care Time Critical Care Time Critical Care Time: Yes Total Critical Care Time: 87 (Please refer to [facility] for attestation.) Discharge Plan Discharge Clinical Impression: Atrial fibrillation with RVR, Sepsis, Community acquired pneumonia, Hematoma of left lower extremity, Acute UTI Patient Disposition: Still a Patient Condition: Improved Patient Language: Icelandic Prescriptions: No Action metoprolol tartrate 25 mg tablet See Rx Instructions .ROUTE .COMPLEX Qty: 180 2RF Dose Instruction: TAKE 1 TABLET BY MOUTH EVERY 12 HOURS Rx Instructions: TAKE 1 TABLET BY MOUTH EVERY 12 HOURS cholecalciferol (vitamin D3) 1,250 mcg (50,000 unit) capsule See Rx Instructions .ROUTE .COMPLEX Qty: 12 3RF Dose Instruction: TAKE 1 CAPSULE BY MOUTH WEEKLY ON MONDAYS Rx Instructions: TAKE 1 CAPSULE BY MOUTH WEEKLY ON MONDAYS hydrochlorothiazide 12.5 mg tablet See Rx Instructions .ROUTE .COMPLEX Qty: 90 2RF Dose Instruction: TAKE 1 TABLET BY MOUTH EVERY DAY Rx Instructions: TAKE 1 TABLET BY MOUTH EVERY DAY tamsulosin 0.4 mg capsule See Rx Instructions .ROUTE .COMPLEX Qty: 90 2RF Dose Instruction: TAKE 1 CAPSULE BY MOUTH EVERY DAY Rx Instructions: TAKE 1 CAPSULE BY MOUTH EVERY DAY meclizine 25 mg tablet See Rx Instructions .ROUTE .COMPLEX Qty: 90 2RF Dose Instruction: TAKE 1 TABLET BY MOUTH EVERY DAY NEEDED FOR DIZZINESS Rx Instructions: TAKE 1 TABLET BY MOUTH EVERY DAY NEEDED FOR DIZZINESS allopurinol 100 mg tablet See Rx Instructions .ROUTE .COMPLEX Qty: 90 2RF Dose Instruction: TAKE 1 TABLET BY MOUTH EVERY DAY Rx Instructions: TAKE 1 TABLET BY MOUTH EVERY DAY tramadol 50 mg tablet 50 mg PO Q6H PRN (Reason: pain) Qty: 60 1RF warfarin 3 mg tablet See Rx Instructions .ROUTE .COMPLEX Qty: 90 2RF Dose Instruction: TAKE 1 TABLET BY MOUTH EVERY DAY Rx Instructions: TAKE 1 TABLET BY MOUTH EVERY DAY Follow-up/Referrals: Mandeep Carson MD [Primary Care Provider, Internal Medicine]
[2025-04-01] MEDS: SODIUM CHLORIDE 0.9% IV 1,000 ML 999 ML IV CONT ×2 (20:22→23:40)
[2025-04-01 22:25] LABS: Add Urine Microscopic? YES; Appearance Urine Cloudy (Clear); Glucose Urine UA Negative (Negative); Leukocyte Esterase Ur 2+ LEU/UL (Negative); Need Manual Microscopic Reviewed; Nitrate Urine Negative (Negative); Specific Grav Ur 1.022 (1.001-1.035)
[2025-04-01] MEDS: SODIUM CHLORIDE 0.9% IV 1,000 ML 100 ML IV CONT (22:48)
[2025-04-01] MEDS: cefTRIAXone 1 GM in SODIUM CHLORIDE 0.9% IV 50 ML 100 ML IVPB (22:50)
[2025-04-01] MEDS: AZITHROMYCIN IV 500 MG in SODIUM CHLORIDE 0.9% IV 250 ML IVPB (23:36)
[2025-04-02] VITALS (30 sets, daily range): BP systolic 92–145; BP diastolic 50–83; PULSE 97–143; RESP 16–21; TEMP 36.4–37.2; O2SAT 94–100; BMI 42.1
[2025-04-02 00:55] LABS: INR 4.1; Prothrombin Time 37.9 Seconds (11.1-14.7)
[2025-04-02 00:56] LABS: Partial Thromboplastin Time 70.2 Seconds (22.3-36.8)
[2025-04-02] MEDS: METOPROLOL TARTRATE 25 MG TABLET PO ×3 (01:00→20:45)
--- NOTE | 2025-04-02 01:16 | P.HP_ITS ---
H&P: HPI History of Present Illness Date/Time: 04/02/25 01:16 Chief Complaint: Multiple falls in syncope Narrative: 74-year-old male with an extensive medical history including atrial fibrillation on warfarin, hypertension, hyperlipidemia, systolic heart failure, chronic dizziness and imbalance who presents to [facility] ER on 04/01/2025 from home reporting multiple syncopal episodes. He does not quite remember the events but does not admit to she is activity. He does remember falling and hitting the back of his head. He reports he has had multiple years of dizziness. He is followed by Dr. Briceno for a fib and his PCP is Dr. Carson. Echo in 2021 demonstrates EF 40-45% and does have lower extremity swelling on and off but is not on a diuretic. He denies cough, fever or chills, shortness of breath, chest pain, nausea vomiting or abdominal pain, diarrhea. He thinks he may be dehydrated due to decreased oral intake recently. He did present to [facility] ER 1 day prior as well as he accidentally kicked is left edmond with his right foot and developed swelling and pain and a hematoma. He was sent home. ER vitals: Blood pressure 105/51, AFib with RVR in the 120s. Saturating 99% on room air. Afebrile. WBC 20.5, hemoglobin 10.1, INR 3.7 -> 4.1, serum creatinine 1.66 elevated compared to his baseline, lactic acid 1.7, troponin 0.012, BNP 490, urinalysis cloudy appearance, WBC 20 1-50, leukocyte esterase 2+, nitrate negative, bacteria none seen. Chest x-ray, CT brain and C-spine revealed no acute process in CT brain and C-spine, left infrahilar opacity done chest x-ray she with final radiology interpretations pending. Blood cultures obtained, urine culture pending. He was given ceftriaxone and azithromycin. Administered 2 L normal saline bolus and his blood pressure improved and heart rate improving. Given vitamin K 5 mg p.o. x1. Review of Systems Review of Systems: All systems reviewed & are unremarkable except as noted in HPI and below (Subjective) PMFSH Past Medical History Medical History Sinus congestion Closed hip fracture Preop cardiovascular exam Acute on chronic kidney failure Abnormal urinalysis Foot fracture, right Overgrown toenails Acute hypokalemia Acute hypokalemia Acute UTI Fatigue Screening PSA (prostate specific antigen) Dizziness Vitamin D deficiency, unspecified Sleep apnea in adult Other chronic pain Other cardiomyopathies ELIANA (obstructive sleep apnea) Obesity, Class III, BMI 40-49.9 (morbid obesity) Low blood potassium Left lateral knee pain MUNSON (dyspnea on exertion) Chronic a-fib Chest pain at rest Bilateral hip pain Atrial fibrillation with controlled ventricular response Abnormal TSH Abnormal PSA BPH (benign prostatic hyperplasia) Ankle pain, left Benign prostatic hyperplasia Chronic kidney disease Gout Hypothyroidism Hyperlipidemia Chronic anticoagulation Atrial fibrillation Hypothyroidism (acquired) HLD (hyperlipidemia) Afib Surgical History Surgical History S/P ORIF (open reduction internal fixation) fracture left femur History of transurethral resection of prostate History of tonsillectomy Family History Family History Mother Family history of cardiovascular disease Father Family history of heart disease in male family member before age 55, Onset Age: 43 Family history of cardiovascular disease Social History Social History Social History: The patient is and has 1 son. 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 Surrogate medical decision maker: Manish Quigley, son. His grandson lives with him. The patient stated that he was a former smoker. Occasionally uses alcohol. Occasional marijuana but no illicit drugs. Code status: Full code. Smoking packs per day: 2 Smoking cigarettes per day: 40.0 Years smoked: 10 Smoking pack-years: 20.00 Smoking status: Former smoker Tobacco type: cigarettes Second hand tobacco smoke exposure: Yes Alcohol intake: current Substance use: current Substance use type: marijuana Other substance usage details: MEDICAL CARD Do You Feel Safe in your Home?: Yes Lack of Transportation: No Lack of Food: Never True Current Housing: I Have Housing Concerned About Future Housing: No Difficulty Paying Gas/Electric Bills: No Difficulty Paying for Meds: No Currently Unemployed: No Education: Associate Degree Difficulty w/ Childcare or Family Care: No Living arrangements: with family Additional living arrangements comments: Lives in his own home in [place]. 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 Spiritual care concerns: No Meds Home Medications and Allergies Home Medications ?Medication ?Instructions ?Recorded ?Confirmed ?Type metoprolol tartrate 25 mg tablet See Rx Instructions . Route 06/13/24 11/30/24 Rx .COMPLEX #180 tabs cholecalciferol (vitamin D3) 1,250 See Rx Instructions .Route 07/11/24 11/30/24 Rx mcg (50,000 unit) capsule .COMPLEX #12 caps hydrochlorothiazide 12.5 mg tablet See Rx Instructions .Route 10/17/24 11/30/24 Rx .COMPLEX #90 tabs tamsulosin 0.4 mg capsule See Rx Instructions .Route 0 10/17/24 11/30/24 Rx .COMPLEX #90 caps meclizine 25 mg tablet See Rx Instructions .Route 0 11/21/24 11/30/24 Rx .COMPLEX #90 tabs allopurinol 100 mg tablet See Rx Instructions .Route 0 01/12/25 Rx .COMPLEX #90 tabs tramadol 50 mg tablet 50 mg PO Q6H PRN pain #60 ta bs 02/13/25 Rx warfarin 3 mg tablet See Rx Instructions .Route 0 03/13/25 Rx .COMPLEX #90 tabs Allergies Allergy/AdvReac Type Severity Reaction Status Date / Time No Known Allergies Allergy Mild Verified 04/02/25 01:39 Vital Signs Vital Signs - 24 hr 04/01/25 19:14 04/02/25 01:00 04/02/25 01:13 Pulse Rate 124 H 127 H 120 H Respiratory Rate 18 16 Blood Pressure 105/51 L 127/83 Pulse Oximetry 94 99 Oxygen Delivery Room Air Exam Const: General: comfortable and no acute distress Other: A&O x3 obese. HENMT: Mouth: Yes dry mucous membranes Eyes: Pupils: Equal, round and reactive pupils present Neck: Neck: supple Resp: Effort & Inspection: normal respiratory effort Auscultation: clear to auscultation bilaterally Cardio: Rate: regular rate Rhythm: abnormal rhythm GI: Inspection: non-distended GI Palp: Yes Soft to palpation : General: Yes bladder normal to palpation Neuro: Motor exam (neuro): 5/5 motor strength present throughout Extrem: Other: Right lower extremity within normal limit. Left lower extremity distal to the knee with extensive ecchymosis, on the medial aspect, slight tenderness to palpation, edema, no fluctuant mass or purulent drainage, blistering with sanguinous fluid draining, pedal pulses intact. H&P: Results Labs Labs: Short CBC 04/01/25 Range/Units 19:46 WBC 20.5 H (4.5-10.0) K/mm3 Hgb 10.1 L (14.0-18.0) g/dL Hct 31.3 L (42.0-52.0) % Plt Count 280 (150-375) k/mm3 BMP 04/01/25 19:46 Sodium 135 L Potassium 3.7 Chloride 100 Carbon Dioxide 27 BUN 41 H D Creatinine 1.66 H Glucose 219 H Calcium 9.2 Cardiac Enzymes 04/01/25 Range/Units 19:46 Troponin I < 0.012 (0.000-0.034) ng/mL Liver Function 04/01/25 Range/Units 19:46 Total Bilirubin 0.9 (0.2-1.3) mg/dL AST 31 (17-59) U/L ALT 21 (6-50) U/L Alkaline Phosphatase 69 (38-126) U/L Albumin 3.4 L (3.5-5.1) g/dL Urine 04/01/25 Range/Units 21:58 Urine Color Yellow (Yellow) Urine Appearance Cloudy H (Clear) Urine pH 5.0 (5.0-9.0) Ur Specific [place] 1.022 (1.001-1.035) Urine Protein 1+ H (Negative) mg/dL Urine Glucose (UA) Negative (Negative) mg/dL Assessment and Plan Assessment and plan (1) Hypertension: Code(s): I10 - Essential (primary) hypertension Status: Chronic (2) Atrial fibrillation with RVR: Code(s): I48.91 - Unspecified atrial fibrillation Status: Acute (3) Acute UTI: Code(s): N39.0 - Urinary tract infection, site not specified Status: Acute (4) Sepsis: Code(s): A41.9 - Sepsis, unspecified organism Status: Acute (5) Community acquired pneumonia: Code(s): J18.9 - Pneumonia, unspecified organism Status: Acute (6) Syncope: Code(s): R55 - Syncope and collapse Status: Acute (7) Dizziness: Code(s): R42 - Dizziness and giddiness Status: Acute (8) Hematoma: Code(s): T14.8XXA - Other injury of unspecified body region, initial encounter Status: Acute Plan 74-year-old male with an extensive medical history including atrial fibrillation on warfarin, hypertension, hyperlipidemia, chronic dizziness and imbalance who presents to [facility] ER on 04/01/2025 from home reporting multiple syncopal episodes. He does not quite remember the events but does not admit to she is activity. He does remember falling and hitting the back of his head. He reports he has had multiple years of dizziness. He is followed by Dr. Briceno for a fib and his PCP is Dr. Carson. Echo in 2021 demonstrates EF 40-45% and does have lower extremity swelling on and off but has not been diagnosis heart failure. He denies cough, fever or chills, shortness of breath, chest pain, nausea vomiting or abdominal pain, diarrhea. He thinks he may be dehydrated due to decreased oral intake recently. He did present to [facility] ER 1 day prior as well as he accidentally kicked is left edmond with his right foot and developed swelling and pain and a hematoma. He was sent home. ER vitals: Blood pressure 105/51, AFib with RVR in the 120s. Saturating 99% on room air. Afebrile. WBC 20.5, hemoglobin 10.1, INR 3.7 -> 4.1, serum creatinine 1.66 elevated compared to his baseline, lactic acid 1.7, troponin 0.012, BNP 490, urinalysis cloudy appearance, WBC 20 1-50, leukocyte esterase 2+, nitrate negative, bacteria none seen. Chest x-ray, CT brain and C-spine revealed no acute process in CT brain and C-spine, left infrahilar opacity done chest x-ray she with final radiology interpretations pending. Blood cultures obtained, urine culture pending. He was given ceftriaxone and azithromycin. Administered 2 L normal saline bolus and his blood pressure improved and heart rate improving. Given vitamin K 5 mg p.o. x1. ----- Syncope: No further events, most likely due to dehydration/sepsis/atrial fibrillation with RVR. Continue to monitor telemetry. Check surface echocardiogram. Check bilateral carotid ultrasound. He is unsure what workup has been performed for his chronic dizziness. Readdress this after his other acute issues are improved. Atrial fibrillation with RVR: Presents with rate in the 120s. Blood pressure borderline low. Both have improved after 2 L normal saline bolus. TABLE SETTER metoprolol has been restarted. He is on warfarin, will be holding warfarin for now. Systolic heart failure: He is not on any diuretics at home. Med list is pending, titrate medications to achieve guideline directed medical therapy as his hospital course progresses. Hold off on further fluids. He has significant edema of the left lower extremity but that is due to the hematoma. Daily weights, strict intake/output. Hematoma of left lower extremity: This is due to slight trauma with him kicking his left edmond with his right foot in being on a anticoagulants. His INR is 4.1. He has been given vitamin K 5 mg p.o. x1. Check INR at 5:00 a.m. and continue to adjust as necessary. Neurovascular checks q.2 hours. He has good pedal pulses but the hematoma, ecchymosis, edema is extensive. At this time it does not appear infected. Cycle hemoglobin. Wound care consult placed. Sepsis without shock: Blood pressure improved. Continue to trend leukocytosis. He has an MAMIE on CKD, continue to trend status post fluid resuscitation. Blood cultures pending, urine cultures pending. Continue ceftriaxone and azithromycin. Trend hemoglobin levels. Patient wishes to be full code. Precautions, ambulate with assistance. PT/OT evaluations. Heart healthy diet. Saline lock IV. Daily weights, intake/output. Patient has a walker and wheelchair but does not use them most of the time. Hospitalist MIPS Advance Care Plan I have confirmed that the patient's Advanced Care Plan is present, code status is documented, or surrogate decision maker is listed in patient medical record.: Yes Medication Reconciliation I have utilized all available resources to obtain, update and review the patients current medications (includes all prescriptions, OTC, herbals, cannabis, and nutritional supplements).: Yes
--- NOTE | 2025-04-02 01:35 | ADMGEN ---
This patient, Car Quigley, was admitted to IMU Room 214-01 on 04/02/25 at 0110. Patient/family oriented to hospital policies and general routines including ID bracelet, bed and alarms, visiting hours, pain management, procedures, bathroom and other care routines, personal items, smoking policy, room service/diet, and visiting hours. Information on how to activate the Rapid Response Team has been discussed. Patient/Family are encouraged to report perceived risks to care and to ask questions if they do not understand what they are told or what they should do.
[2025-04-02] MEDS: PHYTONADIONE 5 MG TABLET PO (02:08)
--- NOTE | 2025-04-02 02:14 | WNDPHOTO ---
PHOTO ONLY - See Nursing Notes and/ or assessments for documentation.
--- NOTE | 2025-04-02 02:15 | WNDPHOTO ---
PHOTO ONLY - See Nursing Notes and/ or assessments for documentation.
--- NOTE | 2025-04-02 02:16 | WNDPHOTO ---
PHOTO ONLY - See Nursing Notes and/ or assessments for documentation.
--- NOTE | 2025-04-02 02:18 | WNDPHOTO ---
PHOTO ONLY - See Nursing Notes and/ or assessments for documentation.
[2025-04-02 04:25] LABS: Hematocrit 25.8 % (42.0-52.0); Hemoglobin 8.3 g/dL (14.0-18.0); Immature Granulocyte Percent A 0.7 % (0-0.5); Lymphocytes Absolute Auto 1.71 K/mm3 (0.9-3.2); Mean Corpuscular HGB Conc 32.2 g/dl (32-36); Mean Corpuscular Hemoglobin 32.0 pg (26-34); Mean Corpuscular Volume 99.6 fl (80-100); Nucleated Red Blood Cells Absolute Auto 0.000 K/mm3 (0.0-0.012); Nucleated Red Blood Cells Perc 0.0 % (0.0-0.2); Platelet Count Result 242 k/mm3 (150-375); Red Blood Count 2.59 M/mm3 (4.6-6.20); White Blood Count 18.1 K/mm3 (4.5-10.0)
[2025-04-02 04:37] LABS: Alanine Aminotransferase 12 U/L (6-50); Albumin Level 2.8 g/dL (3.5-5.1); Alkaline Phosphatase 59 U/L (38-126); Anion Gap 7 mmol/L (4-12); Aspartate Amino Transferase 20 U/L (17-59); Bilirubin,Total 0.6 mg/dL (0.2-1.3); Blood Urea Nitrogen 39 mg/dL (9-20); Calcium 8.3 mg/dL (8.4-10.2); Carbon Dioxide 23 mmol/L (22-30); Chloride 105 mmol/L (98-107); Estimated CRCL calculation 58 ml/min; Estimated Glomerular Filt Rate 44; Glucose 136 mg/dL (65-110); Magnesium 1.7 mg/dL (1.6-2.3); Potassium 4.0 mmol/L (3.4-5.0); Sodium 135 mmol/L (137-145); Total Protein 5.9 g/dL (6.3-8.2)
[2025-04-02 04:39] LABS: INR 3.9; Prothrombin Time 36.6 Seconds (11.1-14.7)
--- NOTE | 2025-04-02 08:00 | ECG_ITS ---
Test Date: 2025-04-02 07:13:41 Measurements Intervals [place] Rate: 108 P: 0 UT: 0 QRS: 55 QRSD: 104 T: 47 QT: 351 QTc: 471 Interpretive Statements ATRIAL FIBRILLATION WITH RAPID VENTRICULAR RESPONSE WITH ABERRANT CONDUCTION OR VENTRICULAR PREMATURE COMPLEXES MINIMAL ST DEPRESSION [0.025+ mV ST DEPRESSION] ABNORMAL RHYTHM ECG Compared to ECG 04/01/2025 19:33:15 No significant changes Electronically Signed On 04-02-2025 16:05:40 CDT by Ganesh Rodriguez M.D.
[2025-04-02] MEDS: traMADol HCL (*CRX) 50 MG TABLET PO ×2 (10:01→16:12)
--- NOTE | 2025-04-02 10:05 | P.PNIM_ITS ---
Progress Note: A&P Assessment and Plan (1) Hypertension: Code(s): I10 - Essential (primary) hypertension Status: Chronic (2) Atrial fibrillation with RVR: Code(s): I48.91 - Unspecified atrial fibrillation Status: Acute (3) Acute UTI: Code(s): N39.0 - Urinary tract infection, site not specified Status: Acute (4) Sepsis: Code(s): A41.9 - Sepsis, unspecified organism Status: Acute (5) Community acquired pneumonia: Code(s): J18.9 - Pneumonia, unspecified organism Status: Acute (6) Syncope: Code(s): R55 - Syncope and collapse Status: Acute (7) Dizziness: Code(s): R42 - Dizziness and giddiness Status: Acute (8) Hematoma: Code(s): T14.8XXA - Other injury of unspecified body region, initial encounter Status: Acute Plan 74-year-old male with an extensive medical history including atrial fibrillation on warfarin, hypertension, hyperlipidemia, chronic dizziness and imbalance who presents to [facility] ER on 04/01/2025 from home reporting multiple syncopal episodes. He does not quite remember the events but does not admit to she is activity. He does remember falling and hitting the back of his head. He reports he has had multiple years of dizziness. He is followed by Dr. Briceno for a fib and his PCP is Dr. Carson. Echo in 2021 demonstrates EF 40-45% and does have lower extremity swelling on and off but has not been diagnosis heart failure. He denies cough, fever or chills, shortness of breath, chest pain, nausea vomiting or abdominal pain, diarrhea. He thinks he may be dehydrated due to decreased oral intake recently. Syncope Patient reported multiple falls adn syncope EKG showed Afib with rate of 108, no acute ST-T changes ECHO pending monitor closely Left femoral fracture Hematoma with possible Compartment syndrome vs necrosis Patient has massive leg edema with blebs and possible skin necrosis discussed with Ortho and he recommended transfer to higher level of care Called [facility] for transfer Blod culture and Started on MEropenem and Vancomycin Atrial fibrillation Patient on Warfarin, INR 3.9 Given Vitamin K for reversal for possible surgical intervention today Large mediastinum CXR showed dilated mediatinum CT Chest ordered and pending report monitor DVT prophyalxis on Warfarin reversal for possible surgical intervention Full code Awaiting transfer Subjective Date/time seen: 04/02/25 10:05 Interval history: Comfortable at bedside Patient presented other ER 2 days ago with left leg pain adn swelling after he kicked his left edmond with the right foot. HE was evaluated in the ER including xray which did not show any acute changes and he was Review of Systems Review of Systems: All systems reviewed & are unremarkable except as noted in HPI and below (Subjective) Exam Const: General: comfortable and no acute distress Other: A&O x3 obese. HENMT: Mouth: Yes dry mucous membranes Eyes: Pupils: Equal, round and reactive pupils present Neck: Neck: supple Resp: Effort & Inspection: normal respiratory effort Auscultation: clear to auscultation bilaterally Cardio: Rate: regular rate Rhythm: abnormal rhythm GI: Inspection: non-distended : General: Yes bladder normal to palpation Neuro: Cranial nerves: Yes Equal, round and reactive pupils present Motor exam (neuro): 5/5 motor strength present throughout Extrem: Other: Right lower extremity within normal limit. Left lower extremity distal to the knee with extensive ecchymosis, on the medial aspect, slight tenderness to palpation, edema, no fluctuant mass or purulent drainage, blistering with sanguinous fluid draining, pedal pulses intact. Objective Data Vital Signs Vital Signs: Vital Signs - 24 hr 04/01/25 19:14 04/02/25 01:00 04/02/25 01:10 Temperature 98.1 F Pulse Rate 124 H 127 H 123 H Respiratory Rate 18 20 Blood Pressure 105/51 L 117/70 Pulse Oximetry 94 97 Oxygen Delivery Room Air 04/02/25 01:13 04/02/25 01:18 04/02/25 01:20 Temperature Pulse Rate 120 H 143 H 123 H Respiratory Rate 16 20 Blood Pressure 127/83 Pulse Oximetry 99 97 Oxygen Delivery Room Air 04/02/25 02:00 04/02/25 03:28 04/02/25 04:00 Temperature 98.0 F Pulse Rate 102 H 100 97 Respiratory Rate 18 Blood Pressure 114/68 Pulse Oximetry 97 Oxygen Delivery 04/02/25 04:53 04/02/25 06:00 04/02/25 07:45 Temperature 98.5 F Pulse Rate 100 107 H 117 H Respiratory Rate 18 20 Blood Pressure 110/67 Pulse Oximetry 97 99 Oxygen Delivery Room Air 04/02/25 10:02 Temperature Pulse Rate 105 H Respiratory Rate Blood Pressure Pulse Oximetry Oxygen Delivery Intake/Output Intake/Output: Intake & Output 03/30/25 03/31/25 04/01/25 04/02/25 23:59 23:59 23:59 23:59 Intake Total 1050 1920 Output Total 0 Balance 1050 1920 Meds/Results Medications: Active Medications Generic Name Dose Route Start Last Admin Trade Name Freq PRN Reason Stop Dose Admin Acetaminophen 650 mg 04/02/25 06:13 Acetaminophen 325 Mg Tablet PO Q4-6H PRN fever or pain Allopurinol 100 mg 04/02/25 08:00 04/02/25 10:02 Allopurinol 100 Mg Tablet BY MOUTH 100 mg DAILY@0800 [facility] Administration Azithromycin 250 mg 04/02/25 22:00 Azithromycin 250 Mg Tablet PO 04/05/25 22:01 Q24H ANGÉLICA Ceftriaxone Sodium 1 gm/ 50 mls @ 100 mls/hr 04/02/25 22:00 Sodium Chloride IVPB Q24H ANGÉLICA Meropenem 1 gm/ Sodium 100 mls @ 200 mls/hr 04/02/25 10:05 Chloride IVPB Q8H [facility] Metoprolol Tartrate 25 mg 04/02/25 00:50 04/02/25 10:02 Metoprolol Tartrate 25 Mg Tablet PO 25 mg Q12HR ANGÉLICA Administration Perflutren Lipid Microsphere 0 ml 04/02/25 01:08 Perflutren Lipid Microspheres 1.5 Ml Vial Diluted To 10 Ml Total Volume IV PUSH 04/05/25 01:09 ONCE PRN adequate visualization Protocol Tramadol HCl 50 mg 04/02/25 06:13 04/02/25 10:01 Tramadol Hcl (*Crx) 50 Mg Tablet PO 50 mg Q6H PRN Administration Pain Rated 4-6 Vancomycin HCl 1 each 04/02/25 10:05 Vancomycin Pharmacist To Dose IVPB PER PROTOCOL [facility] Labs Labs: Laboratory Results - last 24 hr 04/01/25 04/01/25 04/01/25 19:46 21:58 22:14 WBC 20.5 H RBC 3.17 L Hgb 10.1 L Hct 31.3 L MCV 98.7 MCH 31.9 MCHC 32.3 RDW 13.7 Plt Count 280 MPV 10.4 Immature Gran % (Auto) 0.9 H Neut % (Auto) 85.2 H Lymph % (Auto) 7.0 L [place] % (Auto) 6.3 Eos % (Auto) 0.2 Baso % (Auto) 0.4 Lymph # (Auto) 1.44 [place] # (Auto) 1.3 H Eos # (Auto) 0.1 Baso # (Auto) 0.1 Abs Immat Gran (auto) 0.18 H Absolute Neuts (auto) 17.4 H Absolute Nucleated RBC 0.000 Nucleated RBC % 0.0 PT 34.7 H INR 3.7 APTT 67.4 H Sodium 135 L Potassium 3.7 Chloride 100 Carbon Dioxide 27 Anion Gap 8 BUN 41 H D Creatinine 1.66 H Estim Creat Clear Calc 52 Estimated GFR 41 L Glucose 219 H Lactic Acid 1.7 Calcium 9.2 Magnesium 1.7 Total Bilirubin 0.9 AST 31 ALT 21 Alkaline Phosphatase 69 Troponin I < 0.012 NT-Pro-B Natriuret Pep 490 H Total Protein 7.0 Albumin 3.4 L Urine Color Yellow Urine Appearance Cloudy H Urine pH 5.0 Ur Specific [place] 1.022 Urine Protein 1+ H Urine Glucose (UA) Negative Urine Ketones Negative Ur Blood (Man) 3+ H Urine Nitrate Negative Urine Bilirubin Negative Urine Urobilinogen 1.0 Add Ur Microanalysis Reviewed Leukocyte Esterase Rfl 2+ H Urine RBC 11-20 H Urine WBC 21-50 H Ur Squamous Epith Cells None seen Urine Bacteria None seen Urine Casts 6-10 Urine Mucus Present 04/02/25 04/02/25 00:40 04:13 WBC 18.1 H RBC 2.59 L Hgb 8.3 L Hct 25.8 L MCV 99.6 MCH 32.0 MCHC 32.2 RDW 13.7 Plt Count 242 MPV 10.7 H Immature Gran % (Auto) 0.7 H Neut % (Auto) 82.2 H Lymph % (Auto) 9.5 L [place] % (Auto) 7.5 Eos % (Auto) 0.0 Baso % (Auto) 0.1 L Lymph # (Auto) 1.71 [place] # (Auto) 1.4 H Eos # (Auto) 0.0 Baso # (Auto) 0.0 Abs Immat Gran (auto) 0.13 H Absolute Neuts (auto) 14.9 H Absolute Nucleated RBC 0.000 Nucleated RBC % 0.0 PT 37.9 H 36.6 H INR 4.1 3.9 APTT 70.2 H Sodium 135 L Potassium 4.0 Chloride 105 Carbon Dioxide 23 Anion Gap 7 BUN 39 H Creatinine 1.55 H Estim Creat Clear Calc 58 Estimated GFR 44 L Glucose 136 H Lactic Acid Calcium 8.3 L Magnesium 1.7 Total Bilirubin 0.6 AST 20 ALT 12 Alkaline Phosphatase 59 Troponin I NT-Pro-B Natriuret Pep Total Protein 5.9 L Albumin 2.8 L Urine Color Urine Appearance Urine pH Ur Specific [place] Urine Protein Urine Glucose (UA) Urine Ketones Ur Blood (Man) Urine Nitrate Urine Bilirubin Urine Urobilinogen Add Ur Microanalysis Leukocyte Esterase Rfl Urine RBC Urine WBC Ur Squamous Epith Cells Urine Bacteria Urine Casts Urine Mucus
[2025-04-02] MEDS: VANCOMYCIN 1,250 MG/NS 250 ML 1,250 MG/250 ML BAG 166.67 MG IVPB ×2 (11:10→11:53)
[2025-04-02] MEDS: MEROPENEM 1 GM in SODIUM CHLORIDE 0.9% IV 100 ML 200 ML IVPB ×2 (11:11→17:35)
[2025-04-02] MEDS: PHYTONADIONE ADULT INJ 10 MG in DEXTROSE 5% IN WATER 50 ML 100 MG IVPB (11:50)
--- NOTE | 2025-04-02 12:44 | PM.CNOR ---
Assessment and Plan Assessment and plan (1) Hematoma of left lower extremity: Qualifiers: Encounter type: initial encounter Qualified Code(s): S80.12XA - Contusion of left lower leg, initial encounter Code(s): S80.12XA - Contusion of left lower leg, initial encounter Status: Acute Assessment and Plan: Patient admitted early this morning through the emergency room with increasing swelling and skin problems left lower leg. Reportedly had contusion to the left leg 2 days ago. Patient was discharged from the emergency room to home and then had syncopal episode injury on the stairs. Found down and unable to ambulate. Workup here with further evaluation of the left lower leg showed evidence of left femur fracture and large hematoma of the medial calf and lower leg. On exam skin changes with extensive swelling of the left lower leg, blistering of the skin skin necrosis. Medial compartment tense. He does still have dopplerable pulses and sensation to light touch and good capillary refill in the toes. He is able to move the toes. INR noted to be above 4. Expanding hematoma of the left lower leg with compression of the soft tissues and developing compartment syndrome. Attempt to transfer the patient to higher level care facility without success. Indicated for urgent release of the left lower extremity compartments. (2) Fracture of femur, left, closed: Qualifiers: Encounter type: initial encounter Femur location: shaft Fracture morphology: spiral Fracture alignment: displaced Qualified Code(s): S72.342A - Displaced spiral fracture of shaft of left femur, initial encounter for closed fracture Code(s): S72.92XA - Unspecified fracture of left femur, initial encounter for closed fracture Status: Acute Assessment and Plan: Evidence of femur fracture noted on CT scan the lower leg. Patient with previous hip fracture with intramedullary fixation. Waiting further imaging of femur but will also need transfer for further orthopedic care of his periprosthetic femur fracture (3) Compartment syndrome of left lower extremity: Qualifiers: Encounter type: initial encounter Qualified Code(s): T79.A22A - Traumatic compartment syndrome of left lower extremity, initial encounter Code(s): T79.A22A - Traumatic compartment syndrome of left lower extremity, initial encounter Status: Acute Assessment and Plan: Discussed nonoperative and operative treatment options with the patient. Risks and benefits of each as well as alternatives were reviewed. All of the patient's questions were answered. The risks of surgery reviewed including but not limited to: Neurovascular damage, wound complication, infection, blood clot, pulmonary embolus, stroke, myocardial infarction, and anesthetic risks up to and including . Continued pain and possible dysfunction were explained. Specific risks of the procedure including later recurrence of deformity. No guarantees were offered. If complications occur, the patient understands the need for further treatment, possible further surgery. Patient verbalizes understanding and wishes to proceed. Discussed risk of surgery with elevated INR and anemia. At risk for further loss soft tissue of the lower leg and further development of compartment syndrome. Feel the benefit for release of the compartments at this time outweighs the risk of elevated INR. PLAN: Left lower leg compartment release History of Present Illness HPI Consult date: 04/02/25 Requesting physician: Eugene Guadalupe MD Chief complaint: left leg hematoma PMFSH Past Medical History Medical History (Updated 04/02/25 @ 12:51 by Jimy Jung MD) Compartment syndrome of left lower extremity Fracture of femur, left, closed Sinus congestion Closed hip fracture Preop cardiovascular exam Acute on chronic kidney failure Abnormal urinalysis Foot fracture, right Overgrown toenails Acute hypokalemia Acute hypokalemia Acute UTI Fatigue Screening PSA (prostate specific antigen) Dizziness Vitamin D deficiency, unspecified Sleep apnea in adult Other chronic pain Other cardiomyopathies ELIANA (obstructive sleep apnea) Obesity, Class III, BMI 40-49.9 (morbid obesity) Low blood potassium Left lateral knee pain MUNSON (dyspnea on exertion) Chronic a-fib Chest pain at rest Bilateral hip pain Atrial fibrillation with controlled ventricular response Abnormal TSH Abnormal PSA BPH (benign prostatic hyperplasia) Ankle pain, left Benign prostatic hyperplasia Chronic kidney disease Gout Hypothyroidism Hyperlipidemia Chronic anticoagulation Atrial fibrillation Hypothyroidism (acquired) HLD (hyperlipidemia) Afib Surgical History Surgical History S/P ORIF (open reduction internal fixation) fracture left femur History of transurethral resection of prostate History of tonsillectomy Family History Family History Mother Family history of cardiovascular disease CAD (coronary artery disease) Father Family history of heart disease in male family member before age 55, Onset Age: 43 Family history of cardiovascular disease CHF (congestive heart failure) Social History Social History Social History: The patient is and has 1 son. 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 Surrogate medical decision maker: Manish Quigley, son. His grandson lives with him. The patient stated that he was a former smoker. Occasionally uses alcohol. Occasional marijuana but no illicit drugs. Code status: Full code. Smoking packs per day: 1 Smoking cigarettes per day: 20.0 Years smoked: 10 Smoking pack-years: 10.00 Smoking status: Former smoker Tobacco type: cigarettes Second hand tobacco smoke exposure: No Alcohol intake: never Substance use: current Substance use type: marijuana Other substance usage details: MEDICAL CARD Last use: 03/31/25 Do You Feel Safe in your Home?: Yes Lack of Transportation: No Lack of Food: Never True Current Housing: I Have Housing Concerned About Future Housing: No Difficulty Paying Gas/Electric Bills: No Difficulty Paying for Meds: No Currently Unemployed: No Education: High School Diploma/GED Difficulty w/ Childcare or Family Care: No Living arrangements: with family Additional living arrangements comments: Lives in his own home in [place]. 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 Spiritual care concerns: No Meds Home Medications and Allergies Home Medications ?Medication ?Instructions ?Recorded ?Confirmed ?Type metoprolol tartrate 25 mg tablet See Rx Instructions .Route 06/13/24 04/02/25 Rx .COMPLEX #180 tabs cholecalciferol (vitamin D3) 1,250 See Rx Instructions .Route 07/11/24 04/02/25 Rx mcg (50,000 unit) capsule .COMPLEX #12 caps hydrochlorothiazide 12.5 mg tablet See Rx Instructions .Route 10/17/24 04/02/25 Rx .COMPLEX #90 tabs tamsulosin 0.4 mg capsule See Rx Instructions .Route 10/17/24 04/02/25 Rx .COMPLEX #90 caps meclizine 25 mg tablet See Rx Instructions .Route 11/21/24 04/02/25 Rx .COMPLEX #90 tabs allopurinol 100 mg tablet See Rx Instructions .Route 01/12/25 04/02/25 Rx .COMPLEX #90 tabs tramadol 50 mg tablet 50 mg PO Q6H PRN pain #60 tabs 02/13/25 04/02/25 Rx warfarin 3 mg tablet See Rx Instructions .Route 03/13/25 04/02/25 Rx .COMPLEX #90 tabs acetaminophen 325 mg tablet 650 mg PO Q4-6H PRN fever or pain 04/02/25 04/02/25 History (Tylenol) Allergies Allergy/AdvReac Type Severity Reaction Status Date / Time No Known Allergies Allergy Mild Verified 04/02/25 01:39 Vital Signs Vital Signs - 24 hr 04/01/25 19:14 04/02/25 01:00 04/02/25 01:10 Temperature 98.1 F Pulse Rate 124 H 127 H 123 H Respiratory Rate 18 20 Blood Pressure 105/51 L 117/70 Pulse Oximetry 94 97 Oxygen Delivery Room Air 04/02/25 01:13 04/02/25 01:18 04/02/25 01:20 Temperature Pulse Rate 120 H 143 H 123 H Respiratory Rate 16 20 Blood Pressure 127/83 Pulse Oximetry 99 97 Oxygen Delivery Room Air 04/02/25 02:00 04/02/25 03:28 04/02/25 04:00 Temperature 98.0 F Pulse Rate 102 H 100 97 Respiratory Rate 18 Blood Pressure 114/68 Pulse Oximetry 97 Oxygen Delivery 04/02/25 04:53 04/02/25 06:00 04/02/25 07:45 Temperature 98.5 F Pulse Rate 100 107 H 117 H Respiratory Rate 18 20 Blood Pressure 110/67 Pulse Oximetry 97 99 Oxygen Delivery Room Air 04/02/25 10:02 04/02/25 11:43 Temperature 97.5 F L Pulse Rate 105 H 103 H Respiratory Rate Blood Pressure 92/74 L Pulse Oximetry Oxygen Delivery Exam Const: General: No confusion Orientation/consciousness: No confusion HENMT: Head: normal to inspection, normocephalic and atraumatic Eyes: Conjunctivae: conjunctivae normal Sclera: sclerae normal Neck: Neck: supple and nontender Chest: Chest palpation & inspection: normal inspection of the chest Resp: Effort & Inspection: normal respiratory effort and no audible wheezes Neuro: General: No confusion Extrem: General: capillary refill normal Right upper extremity: normal to inspection Left upper extremity: normal to inspection Right lower extremity: normal to inspection, hip/thigh Details: normal to inspection and normal ROM; no tenderness and no swelling, knee Details: no tenderness and no swelling, ankle Details: normal ROM (Able to flex and extend the ankle) and foot Details: vascular exam Details: dorsalis pedis pulse present and normal capillary refill, tendon exam (Moves all toes) and motor-sensory exam Details: light-touch normal Location: in all toes Left lower extremity: hip/thigh Details: tenderness Location: of the hip Location: laterally and anteriorly, swelling Location: of the hip and abnormal ROM Details: pain with passive ROM (Full motion deferred secondary to fracture) Details: with flexion, with internal rotation and with external rotation, knee Details: tenderness, swelling (mild) and other (no erythema), lower leg Details: non-pitting edema (Diffuse medial lower leg extending from just below the knee to the ankle. Skin slough and skin blistering. Areas of skin necrosis over the medial calf), ankle (no calf tenderness) Details: pitting edema (Diffuse) Details: non-pitting and abnormal ROM Details: pain with active ROM Details: with dorsiflexion and foot Details: abnormal to inspection (Diffuse swelling and serous blisters), tenderness (difuuse), edema (severe) Location: of the dorsal foot, vascular exam Details: dorsalis pedis pulse present (doppler), posterior tibial pulse present (doppler) and normal capillary refill and motor-sensory exam light-touch normal in all toes Psych: Affect: normal affect Results Labs 04/02/25 04:13 04/02/25 04:13 Labs: Abnormal lab results 04/01/25 04/01/25 04/02/25 Range/Units 19:46 21:58 00:40 WBC 20.5 H (4.5-10.0) K/mm3 RBC 3.17 L (4.6-6.20) M/mm3 Hgb 10.1 L (14.0-18.0) g/dL Hct 31.3 L (42.0-52.0) % MPV (7.4-10.4) fl Immature Gran % (Auto) 0.9 H (0-0.5) % Neut % (Auto) 85.2 H (45.5-73.1) % Lymph % (Auto) 7.0 L (18.3-44.2) % Baso % (Auto) (0.2-1.2) % [place] # (Auto) 1.3 H (0.1-0.6) K/mm3 Abs Immat Gran (auto) 0.18 H (0.00-0.031) K/mm3 Absolute Neuts (auto) 17.4 H (1.3-6.7) K/mm3 PT 34.7 H 37.9 H (11.1-14.7) Seconds APTT 67.4 H 70.2 H (22.3-36.8) Seconds Sodium 135 L (137-145) mmol/L BUN 41 H D (9-20) mg/dL Creatinine 1.66 H (0.7-1.3) mg/dL Estimated GFR 41 L (59 - ) Glucose 219 H (65-110) mg/dL Calcium (8.4-10.2) mg/dL NT-Pro-B Natriuret Pep 490 H (19.9-100) pg/mL Total Protein (6.3-8.2) g/dL Albumin 3.4 L (3.5-5.1) g/dL Urine Appearance Cloudy H (Clear) Urine Protein 1+ H (Negative) mg/dL Ur Blood (Man) 3+ H (Negative) Leukocyte Esterase Rfl 2+ H (Negative) RUBI/UL Urine RBC 11-20 H (0-2) /hpf Urine WBC 21-50 H (0-3) /hpf 04/02/25 Range/Units 04:13 WBC 18.1 H (4.5-10.0) K/mm3 RBC 2.59 L (4.6-6.20) M/mm3 Hgb 8.3 L (14.0-18.0) g/dL Hct 25.8 L (42.0-52.0) % MPV 10.7 H (7.4-10.4) fl Immature Gran % (Auto) 0.7 H (0-0.5) % Neut % (Auto) 82.2 H (45.5-73.1) % Lymph % (Auto) 9.5 L (18.3-44.2) % Baso % (Auto) 0.1 L (0.2-1.2) % [place] # (Auto) 1.4 H (0.1-0.6) K/mm3 Abs Immat Gran (auto) 0.13 H (0.00-0.031) K/mm3 Absolute Neuts (auto) 14.9 H (1.3-6.7) K/mm3 PT 36.6 H (11.1-14.7) Seconds APTT (22.3-36.8) Seconds Sodium 135 L (137-145) mmol/L BUN 39 H (9-20) mg/dL Creatinine 1.55 H (0.7-1.3) mg/dL Estimated GFR 44 L (59 - ) Glucose 136 H (65-110) mg/dL Calcium 8.3 L (8.4-10.2) mg/dL NT-Pro-B Natriuret Pep (19.9-100) pg/mL Total Protein 5.9 L (6.3-8.2) g/dL Albumin 2.8 L (3.5-5.1) g/dL Urine Appearance (Clear) Urine Protein (Negative) mg/dL Ur Blood (Man) (Negative) Leukocyte Esterase Rfl (Negative) RUBI/UL Urine RBC (0-2) /hpf Urine WBC (0-3) /hpf H & H 04/01/25 04/02/25 Range/Units 19:46 04:13 Hgb 10.1 L 8.3 L (14.0-18.0) g/dL Hct 31.3 L 25.8 L (42.0-52.0) % Coagulation 04/01/25 04/02/25 04/02/25 Range/Units 19:46 00:40 04:13 INR 3.7 4.1 3.9 All other labs normal.
--- NOTE | 2025-04-02 12:57 | WPDHPUPDATE1 ---
History and Physical Update Update Date/Time: 04/02/25 12:57 History and Physical has been reviewed, including an updated exam of the patient. There are NO changes in the patient's condition. Risks, benefits, and alternatives have been discussed and questions answered. Patient agrees to proceed with procedure.
[2025-04-02 13:01] LABS: MRSA (PCR) NOT DETECTED (NOT DETECTE)
--- NOTE | 2025-04-02 13:19 | P.PNAN_ITS ---
Anes - Initial Pre Proc Eval Procedure: Operation Date: 04/02/25 13:30 Proposed Procedures p Fasciotomy Lower Extremity(Left) - Jimy Jung MD Date/Time: 04/02/25 13:19 Surgeon: Emilia Shanks MD Pre Op Diagnosis: left leg hematoma Patient Data Age: 74 Gender: M Height: 1.85 m Weight: 145 kg Last Vital Signs Temp 36.4 C L 04/02/25 11:43 Pulse 103 H 04/02/25 11:43 Resp 20 04/02/25 07:45 BP 92/74 L 04/02/25 11:43 Pulse Ox 99 04/02/25 07:45 O2 Del Method Room Air 04/02/25 04:53 Allergies Allergy/AdvReac Type Severity Reaction Status Date / Time No Known Allergies Allergy Mild Verified 04/02/25 01:39 Home Medications ?Medication ?Instructions ?Recorded ?Confirmed ?Type metoprolol tartrate 25 mg tablet See Rx Instructions . Route 06/13/24 04/02/25 Rx .COMPLEX #180 tabs cholecalciferol (vitamin D3) 1,250 See Rx Instructions .Route 07/11/24 04/02/25 Rx mcg (50,000 unit) capsule .COMPLEX #12 caps hydrochlorothiazide 12.5 mg tablet See Rx Instructions .Route 10/17/24 04/02/25 Rx .COMPLEX #90 tabs tamsulosin 0.4 mg capsule See Rx Instructions .Route 0 10/17/24 04/02/25 Rx .COMPLEX #90 caps meclizine 25 mg tablet See Rx Instructions .Route 0 11/21/24 04/02/25 Rx .COMPLEX #90 tabs allopurinol 100 mg tablet See Rx Instructions .Route 0 01/12/25 04/02/25 Rx .COMPLEX #90 tabs tramadol 50 mg tablet 50 mg PO Q6H PRN pain #60 ta bs 02/13/25 04/02/25 Rx warfarin 3 mg tablet See Rx Instructions .Route 0 03/13/25 04/02/25 Rx .COMPLEX #90 tabs acetaminophen 325 mg tablet 650 mg PO Q4-6H PRN fever or pain 04/02/25 04/02/25 History (Tylenol) Laboratory Tests 04/01/25 04/01/25 04/01/25 19:46 21:58 22:14 WBC 20.5 H K/mm3 (4.5-10.0) RBC 3.17 L M/mm3 (4.6-6.20) Hgb 10.1 L g/dL (14.0-18.0) Hct 31.3 L % (42.0-52.0) MCV 98.7 fl (80-100) MCH 31.9 pg (26-34) MCHC 32.3 g/dl (32-36) RDW 13.7 % (11.5-14.5) Plt Count 280 k/mm3 (150-375) MPV 10.4 fl (7.4-10.4) Immature Gran % (Auto) 0.9 H % (0-0.5) Neut % (Auto) 85.2 H % (45.5-73.1) Lymph % (Auto) 7.0 L % (18.3-44.2) [place] % (Auto) 6.3 % (2.6-8.5) Eos % (Auto) 0.2 % (0-4.4) Baso % (Auto) 0.4 % (0.2-1.2) Lymph # (Auto) 1.44 K/mm3 (0.9-3.2) [place] # (Auto) 1.3 H K/mm3 (0.1-0.6) Eos # (Auto) 0.1 K/mm3 (0-0.3) Baso # (Auto) 0.1 K/mm3 (0.0-0.1) Abs Immat Gran (auto) 0.18 H K/mm3 (0.00-0.031) Absolute Neuts (auto) 17.4 H K/mm3 (1.3-6.7) Absolute Nucleated RBC 0.000 K/mm3 (0.0-0.012) Nucleated RBC % 0.0 % (0.0-0.2) PT 34.7 H Seconds (11.1-14.7) INR 3.7 APTT 67.4 H Seconds (22.3-36.8) Sodium 135 L mmol/L (137-145) Potassium 3.7 mmol/L (3.4-5.0) Chloride 100 mmol/L (98-107) Carbon Dioxide 27 mmol/L (22-30) Anion Gap 8 mmol/L (4-12) BUN 41 H D mg/dL (9-20) Creatinine 1.66 H mg/dL (0.7-1.3) Estim Creat Clear Calc 52 ml/min Estimated GFR 41 L (59 - ) Glucose 219 H mg/dL (65-110) Lactic Acid 1.7 mmol/L (0.7-2.0) Calcium 9.2 mg/dL (8.4-10.2) Magnesium 1.7 mg/dL (1.6-2.3) Total Bilirubin 0.9 mg/dL (0.2-1.3) AST 31 U/L (17-59) ALT 21 U/L (6-50) Alkaline Phosphatase 69 U/L (38-126) Troponin I < 0.012 ng/mL (0.000-0.034) NT-Pro-B Natriuret Pep 490 H pg/mL (19.9-100) Total Protein 7.0 g/dL (6.3-8.2) Albumin 3.4 L g/dL (3.5-5.1) Urine Color Yellow (Yellow) Urine Appearance Cloudy H (Clear) Urine pH 5.0 (5.0-9.0) Ur Specific [place] 1.022 (1.001-1.035) Urine Protein 1+ H mg/dL (Negative) Urine Glucose (UA) Negative mg/dL (Negative) Urine Ketones Negative mg/dL (Negative) Ur Blood (Man) 3+ H (Negative) Urine Nitrate Negative (Negative) Urine Bilirubin Negative (Negative) Urine Urobilinogen 1.0 mg/dL (<2.0) Add Ur Microanalysis Reviewed Leukocyte Esterase Rfl 2+ H RUBI/UL (Negative) Urine RBC 11-20 H /hpf (0-2) Urine WBC 21-50 H /hpf (0-3) Ur Squamous Epith Cells None seen /hpf (Few) Urine Bacteria None seen /hpf Urine Casts 6-10 Urine Mucus Present /lpf Nasal MRSA (PCR) 04/02/25 04/02/25 04/02/25 00:40 04:13 11:43 WBC 18.1 H K/mm3 (4.5-10.0) RBC 2.59 L M/mm3 (4.6-6.20) Hgb 8.3 L g/dL (14.0-18.0) Hct 25.8 L % (42.0-52.0) MCV 99.6 fl (80-100) MCH 32.0 pg (26-34) MCHC 32.2 g/dl (32-36) RDW 13.7 % (11.5-14.5) Plt Count 242 k/mm3 (150-375) MPV 10.7 H fl (7.4-10.4) Immature Gran % (Auto) 0.7 H % (0-0.5) Neut % (Auto) 82.2 H % (45.5-73.1) Lymph % (Auto) 9.5 L % (18.3-44.2) [place] % (Auto) 7.5 % (2.6-8.5) Eos % (Auto) 0.0 % (0-4.4) Baso % (Auto) 0.1 L % (0.2-1.2) Lymph # (Auto) 1.71 K/mm3 (0.9-3.2) [place] # (Auto) 1.4 H K/mm3 (0.1-0.6) Eos # (Auto) 0.0 K/mm3 (0-0.3) Baso # (Auto) 0.0 K/mm3 (0.0-0.1) Abs Immat Gran (auto) 0.13 H K/mm3 (0.00-0.031) Absolute Neuts (auto) 14.9 H K/mm3 (1.3-6.7) Absolute Nucleated RBC 0.000 K/mm3 (0.0-0.012) Nucleated RBC % 0.0 % (0.0-0.2) PT 37.9 H Seconds 36.6 H Seconds (11.1-14.7) (11.1-14.7) INR 4.1 3.9 APTT 70.2 H Seconds (22.3-36.8) Sodium 135 L mmol/L (137-145) Potassium 4.0 mmol/L (3.4-5.0) Chloride 105 mmol/L (98-107) Carbon Dioxide 23 mmol/L (22-30) Anion Gap 7 mmol/L (4-12) BUN 39 H mg/dL (9-20) Creatinine 1.55 H mg/dL (0.7-1.3) Estim Creat Clear Calc 58 ml/min Estimated GFR 44 L (59 - ) Glucose 136 H mg/dL (65-110) Lactic Acid Calcium 8.3 L mg/dL (8.4-10.2) Magnesium 1.7 mg/dL (1.6-2.3) Total Bilirubin 0.6 mg/dL (0.2-1.3) AST 20 U/L (17-59) ALT 12 U/L (6-50) Alkaline Phosphatase 59 U/L (38-126) Troponin I NT-Pro-B Natriuret Pep Total Protein 5.9 L g/dL (6.3-8.2) Albumin 2.8 L g/dL (3.5-5.1) Urine Color Urine Appearance Urine pH Ur Specific [place] Urine Protein Urine Glucose (UA) Urine Ketones Ur Blood (Man) Urine Nitrate Urine Bilirubin Urine Urobilinogen Add Ur Microanalysis Leukocyte Esterase Rfl Urine RBC Urine WBC Ur Squamous Epith Cells Urine Bacteria Urine Casts Urine Mucus Nasal MRSA (PCR) Not detected (NOT DETECTE) Patient hx anesthesia problems: none Family hx anesthesia problems: none Results Review: All pre-operative results and documents have been reviewed as part of the pre- operative evaluation. [facility] Past Medical History Medical History Compartment syndrome of left lower extremity Fracture of femur, left, closed Sinus congestion Closed hip fracture Preop cardiovascular exam Acute on chronic kidney failure Abnormal urinalysis Foot fracture, right Overgrown toenails Acute hypokalemia Acute hypokalemia Acute UTI Fatigue Screening PSA (prostate specific antigen) Dizziness Vitamin D deficiency, unspecified Sleep apnea in adult Other chronic pain Other cardiomyopathies ELIANA (obstructive sleep apnea) Obesity, Class III, BMI 40-49.9 (morbid obesity) Low blood potassium Left lateral knee pain MUNSON (dyspnea on exertion) Chronic a-fib Chest pain at rest Bilateral hip pain Atrial fibrillation with controlled ventricular response Abnormal TSH Abnormal PSA BPH (benign prostatic hyperplasia) Ankle pain, left Benign prostatic hyperplasia Chronic kidney disease Gout Hypothyroidism Hyperlipidemia Chronic anticoagulation Atrial fibrillation Hypothyroidism (acquired) HLD (hyperlipidemia) Afib Surgical History Surgical History S/P ORIF (open reduction internal fixation) fracture left femur History of transurethral resection of prostate History of tonsillectomy Family History Family History Mother Family history of cardiovascular disease CAD (coronary artery disease) Father Family history of heart disease in male family member before age 55, Onset Age: 43 Family history of cardiovascular disease CHF (congestive heart failure) Social History Social History Social History: The patient is and has 1 son. 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 Surrogate medical decision maker: Manish Quigley, son. His grandson lives with him. The patient stated that he was a former smoker. Occasionally uses alcohol. Occasional marijuana but no illicit drugs. Code status: Full code. Smoking packs per day: 1 Smoking cigarettes per day: 20.0 Years smoked: 10 Smoking pack-years: 10.00 Smoking status: Former smoker Tobacco type: cigarettes Second hand tobacco smoke exposure: No Alcohol intake: never Substance use: current Substance use type: marijuana Other substance usage details: MEDICAL CARD Last use: 03/31/25 Do You Feel Safe in your Home?: Yes Lack of Transportation: No Lack of Food: Never True Current Housing: I Have Housing Concerned About Future Housing: No Difficulty Paying Gas/Electric Bills: No Difficulty Paying for Meds: No Currently Unemployed: No Education: High School Diploma/GED Difficulty w/ Childcare or Family Care: No Living arrangements: with family Additional living arrangements comments: Lives in his own home in [place]. 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 Spiritual care concerns: No Anes - Eval Final PreProcedure Day of Procedure 04/02/25 13:19 Patient weight: morbidly obese Heart: irregular rhythm Lungs: decreased breath sounds Airway: Mallampati scale class III Neurological: alert and oriented Last oral intake: >/= 8 hours ASA classification: IV Emergent: yes Anesthetic plan: proceed Anesthesia type and monitoring: general LMA and standard monitoring Results Review: All pre-operative results and documents have been reviewed as part of the pre- operative evaluation. Informed Consent: The patient's anesthetic plan and its attendant risks and benefits were discussed with the patient/family/POA. Questions were solicited and answers provided to the satisfaction of the patient/family/POA.
--- NOTE | 2025-04-02 15:03 | W.PM.PROC2 ---
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 Developing compartment syndrome of the left leg. Indicated for release. Findings Increased superficial compartment pressure of the posterior medial left lower leg. Large hematoma noted in the subfascial tissue extending from the knee to the ankle. No active bleeding. Muscle tissue viable. Description of Procedure Patient identified in the preoperative holding. Informed consent given. Operative extremity marked. Patient received intravenous antibiotics. Patient brought to the operating room where underwent general anesthetic by anesthesia team. Positioned supine on operating room table. Time-out performed confirming the patient, site of the surgery and the plan. Left lower leg prepped with Betadine prep solution. Longitudinal incision made over the medial lower leg at the calf level with a 15 blade knife. Noted tension of the skin upon incision. Fascia divided in line with the skin incision with a very large hematoma and area of sanguinous fluid evacuated. Large pieces of hematoma were manually removed. Fluid was suctioned. Muscle inspected and noted to be viable. Subfascial undermining extended from the calf to the proximal tibia just below the knee joint and to the distal tibia just above the ankle joint. Lateral compartments noted to be soft. Several skin blisters were decompressed with serous fluid expressed. Wound irrigated with saline and loosely approximated with red rubber catheter and skin clifton. Sterile dressing applied. The patient was then woken from anesthesia, extubated and taken to the recovery room in stable condition. All sponge, needle, instrument counts were correct at the end of the case. Estimated Blood Loss 100 Tourniquet Time Total Tourniquet Time: 0 Drains No Packing Yes Pathology None sent Complications None Condition Stable Disposition PACU [facility] Billing Surgery - Charge Forward: Surgery Billing ([id number])
--- NOTE | 2025-04-02 15:21 | SUR.PHASEI ---
Notified Dr. Jordan of patient having bigeminal PVC in PACU. No new orders at this time.
[2025-04-02] MEDS: AZITHROMYCIN 250 MG TABLET PO (20:45)
[2025-04-02] MEDS: cefTRIAXone 1 GM in SODIUM CHLORIDE 0.9% IV 50 ML 100 ML IVPB (21:32)
--- NOTE | 2025-04-03 03:17 | PC.NURSE ---
Patient's son was notified of transfer to [facility] and his room number prior to patient leaving facility.
--- NOTE | 2025-04-03 17:54 | PM.TDS ---
Transfer Discharge Sum: Prov Provider Date of admission: 04/01/25 23:33 Primary care physician: Mandeep Carson MD Admitting clinician: Emilia Shanks MD Consults: 04/02/25 Consult to Physician Routine Comment: Consulting Provider: Jimy Jung Reason for consultation: left lower leg injury Has provider been notified: Yes Consult to Physician Routine Comment: Consulting Provider: Getachew Acevedo estate attorney/MD group to consult: Gen surgery Reason for consultation: Left leg hematoma vs necrosis Has provider been notified: Yes Wound/ET Consult Routine Reason for Consult:: LLE hematoma and maceration DS: Admitting Diagnosis Discharge Date 04/02/25 Admitting Diagnosis left leg hematoma DS: Discharge Diagnosis Discharge Diagnosis (1) Compartment syndrome of left lower extremity: Qualifiers: Encounter type: initial encounter Qualified Code(s): T79.A22A - Traumatic compartment syndrome of left lower extremity, initial encounter Code(s): T79.A22A - Traumatic compartment syndrome of left lower extremity, initial encounter Status: Acute Transfer Discharge Sum: Med Medications Active and Home Medications: Home Medications metoprolol tartrate 25 mg tablet See Rx Instructions .Route .COMPLEX #180 tabs 06/13/24 [Rx Confirmed 04/02/25] cholecalciferol (vitamin D3) 1,250 mcg (50,000 unit) capsule See Rx Instructions .Route .COMPLEX #12 caps 07/11/24 [Rx Confirmed 04/02/25] hydrochlorothiazide 12.5 mg tablet See Rx Instructions .Route .COMPLEX #90 tabs 10/17/24 [Rx Confirmed 04/02/25] tamsulosin 0.4 mg capsule See Rx Instructions .Route .COMPLEX #90 caps 10/17/24 [Rx Confirmed 04/02/25] meclizine 25 mg tablet See Rx Instructions .Route .COMPLEX #90 tabs 11/21/24 [Rx Confirmed 04/02/25] allopurinol 100 mg tablet See Rx Instructions .Route .COMPLEX #90 tabs 01/12/25 [Rx Confirmed 04/02/25] tramadol 50 mg tablet 50 mg PO Q6H PRN pain #60 tabs 02/13/25 [Rx Confirmed 04/02/25] warfarin 3 mg tablet See Rx Instructions .Route .COMPLEX #90 tabs 03/13/25 [Rx Confirmed 04/02/25] acetaminophen 325 mg tablet (Tylenol) 650 mg PO Q4-6H PRN fever or pain 04/02/25 [History Confirmed 04/02/25] Transfer Discharge Sum: Hosp Hospital Course Hospital course: 74-year-old male with an extensive medical history including atrial fibrillation on warfarin, hypertension, hyperlipidemia, systolic heart failure, chronic dizziness and imbalance who presents to [facility] ER on 04/01/2025 from home reporting multiple syncopal episodes. ER vitals: Blood pressure 105/51, AFib with RVR in the 120s. Saturating 99% on room air. Afebrile. WBC 20.5, hemoglobin 10.1, INR 3.7 -> 4.1, serum creatinine 1.66 elevated compared to his baseline, lactic acid 1.7, troponin 0.012, BNP 490, urinalysis cloudy appearance, WBC 20 1-50, leukocyte esterase 2+, nitrate negative, bacteria none seen. Chest x-ray, CT brain and C-spine revealed no acute process in CT brain and C-spine, left infrahilar opacity done chest x-ray she with final radiology interpretations pending. Blood cultures obtained, urine culture pending. He was given ceftriaxone and azithromycin. Administered 2 L normal saline bolus and his blood pressure improved and heart rate improving. Given vitamin K 5 mg p.o. x1. Patient was examined at bedside and compartment was suspected ortho was emergently consulted and CTA lower extremity left ordered. Patient was started on Meropenem and Vancomycin, he was taken to OR for Compartment release. CT LLE showed femoral fracture with intramedullary nail and posttraumatic soft tissue changes with a large areas of intramuscular hemorrhage. After compartment release, ortho recommended transfer to higher level of care for complex fracture and possible skin reconstruction. Patient was transfer to [facility] He was stable on transfer Patient Condition: Improved Time Spent with Patient Time attestation: Total time spent providing and/or coordinating transfer services: DS: Data Data Completed and Pending Labs on day of discharge: Preliminary micro results at discharge 04/01/25 20:56 Blood Culture - Preliminary Blood
== END 2025-04-02 23:28 | disposition short-term general hospital (02) | DRG 907 ==
LOC: ANHED 21:39 → ANHIMU 04-02 00:08 → ANHICU 04-04 15:28 → ANHIMU 04-04 15:28
PROVIDERS: Orthopaedic Surgery; Admitting Provider General Practice; Emergency Provider Emergency Medicine; PCP Emergency Medicine; Visit Provider Internal Medicine
PROC: 0KNT0ZZ Release Left Lower Leg Muscle, Open Approach (ICD-10-PCS; principal; 2025-04-02 13:30)
DX: T79.A22A Traumatic compartment syndrome of left lower extremity, initial encounter (principal); J18.9 Pneumonia, unspecified organism; I48.20 Chronic atrial fibrillation, unspecified; Z68.41 Body mass index [BMI] 40.0-44.9, adult; I50.20 Unspecified systolic (congestive) heart failure; N17.9 Acute kidney failure, unspecified; N39.0 Urinary tract infection, site not specified; I11.0 Hypertensive heart disease with heart failure; E78.5 Hyperlipidemia, unspecified; E03.9 Hypothyroidism, unspecified; E66.813 Obesity, class 3; R55 Syncope and collapse; E55.9 Vitamin D deficiency, unspecified; G47.33 Obstructive sleep apnea (adult) (pediatric); F12.90 Cannabis use, unspecified, uncomplicated; F10.90 Alcohol use, unspecified, uncomplicated; W01.10XD Fall on same level from slipping, tripping and stumbling with subsequent striking against unspecified object, subsequent encounter; S80.12XD Contusion of left lower leg, subsequent encounter; Z87.891 Personal history of nicotine dependence; Z79.01 Long term (current) use of anticoagulants; Z90.79 Acquired absence of other genital organ(s); Z91.81 History of falling
CPT/HCPCS: 36415; 70450; 71045; 71250; 72125; 73552; 73700; 80053; 81001; 83605; 83735; 83880; 84484; 85025; 85610; 85730; 87040; 87086; 87186; 87641; 93005; 93880; 93926; 96361; 96365; 96367; 99285; A9270; J0456; J0696; J2003; J2185; J2371; J2704; J3010; J3373; J3430; J7030; J7050